=== PATIENT | female | born 1940 | race Caucasian/White ===

== ENCOUNTER → 2019-10-29 17:37 | Outpatient (ROUT) | payer MEDICARE, SELFPAY ==
[2019-10-29 17:52] LABS: Cholesterol 222 mg/dL (140-199); Glucose 77 mg/dL (80-110); HDL Cholesterol 87 mg/dL (40-60); LDL Cholesterol Calculated 121 mg/dL (<100); Triglycerides 72 mg/dL (35-150)
[2019-10-29 18:23] LABS: TSH w/ Reflex to FT4 0.07 uIU/mL (0.47-4.68)
[2019-10-29 18:56] LABS: Free T4, Direct Thyroxine 1.71 ng/dL (0.78-2.19)
== END ==
PROVIDERS: Family Provider Internal Medicine; PCP Internal Medicine; Visit Provider Internal Medicine
DX: E78.2 Mixed hyperlipidemia (principal); E03.9 Hypothyroidism, unspecified
CPT/HCPCS: 80061; 82947; 84439; 84443

== ENCOUNTER → 2020-01-01 19:06 | Outpatient (ROUT) | payer MEDICARE, SELFPAY ==
[2020-01-01 20:03] LABS: TSH w/ Reflex to FT4 0.18 uIU/mL (0.47-4.68)
[2020-01-01 21:30] LABS: Free T4, Direct Thyroxine 1.37 ng/dL (0.78-2.19)
== END ==
PROVIDERS: Family Provider Internal Medicine; PCP Internal Medicine; Visit Provider Internal Medicine
DX: E03.9 Hypothyroidism, unspecified (principal)
CPT/HCPCS: 84439; 84443

== ENCOUNTER → 2020-11-25 14:53 | Outpatient (ROUT) | payer MEDICARE, SELFPAY ==
[2020-11-25 15:43] LABS: BUN Creatinine Ratio 41.1 (6-22); Blood Urea Nitrogen 23 mg/dL (7-17); Calcium 9.4 mg/dL (8.4-10.2); Carbon Dioxide 31 mmol/L (22-32); Chloride 104 mmol/L (98-107); Cholesterol 245 mg/dL (140-199); Estimated Glomerular Filt Rate > 60.0 mL/min (>60); Glucose 154 mg/dL (80-110); HDL Cholesterol 104 mg/dL (40-60); HEMOLYSIS 21 (0-50); LDL Cholesterol Calculated 133 mg/dL (<100); Potassium 4.5 mmol/L (3.4-5.1); Sodium 137 mmol/L (137-145); Triglycerides 38 mg/dL (35-150)
[2020-11-25 16:08] LABS: TSH w/ Reflex to FT4 0.93 uIU/mL (0.47-4.68)
== END ==
PROVIDERS: Family Provider Internal Medicine; PCP Internal Medicine; Visit Provider Internal Medicine
DX: I47.1 Supraventricular tachycardia (principal); E78.2 Mixed hyperlipidemia; E03.9 Hypothyroidism, unspecified
CPT/HCPCS: 80048; 80061; 84443

== ENCOUNTER → 2020-12-10 09:25 | Outpatient (CLI) | payer MEDICARE, SELFPAY ==
[2020-12-10] MEDS: COVID-19 VACC #1, MRNA(MOD) 100 MCG/0.5 ML VIAL IM (09:33)
== END ==
PROVIDERS: Family Provider Internal Medicine; PCP Internal Medicine; Visit Provider Internal Medicine
DX: Z23 Encounter for immunization (principal)
CPT/HCPCS: 0011A; 91301

== ENCOUNTER → 2021-01-07 09:40 | Outpatient (CLI) | payer MEDICARE, SELFPAY ==
[2021-01-07] MEDS: COVID-19 VACC #2, MRNA(MOD) 100 MCG/0.5 ML VIAL IM (09:45)
== END ==
PROVIDERS: Family Provider Internal Medicine; PCP Internal Medicine; Visit Provider Internal Medicine
DX: Z23 Encounter for immunization (principal)
CPT/HCPCS: 0012A; 91301

== ENCOUNTER → 2021-07-16 10:22 | Outpatient (CLI) | payer MEDICARE, SELFPAY ==
[2021-07-16 10:45] LABS: COVID19 -Nasal RAPID Negative (Negative)
== END ==
PROVIDERS: Family Provider Internal Medicine; PCP Internal Medicine; Visit Provider Nurse Practitioner
DX: J02.9 Acute pharyngitis, unspecified (principal); Z20.822 Contact with and (suspected) exposure to COVID-19
CPT/HCPCS: 87070; 87635

== ENCOUNTER → 2022-11-22 16:18 | Outpatient (CLI) | payer MEDICARE, SELFPAY ==
[2022-11-22 18:09] LABS: Hematocrit 44.4 % (36-46); Hemoglobin 15.4 g/dL (12.0-16.0); Mean Corpuscular HGB Conc 34.7 % (30-36); Mean Corpuscular Hemoglobin 32.8 PG (26-34); Mean Corpuscular Volume 94.7 fL (80-100); Platelet Count 204 X10^3/uL (150-400); Red Blood Cell Count 4.69 X10^6/uL (4.0-5.2); Red Cell Distribution Width 13.8 % (11.6-14.8); White Blood Cell Count 5.2 X10^3/uL (4.5-11.0)
[2022-11-22 18:33] LABS: Alanine Aminotransferase 29 IU/L (<35); Albumin 4.4 g/dL (3.5-5.0); Albumin Globulin Ratio 1.3 (1.0-2.8); Alkaline Phosphatase 54 U/L (38-126); Aspartate Aminotransferase 35 IU/L (14-36); BUN Creatinine Ratio 40.4 (6-22); Bilirubin Total 0.5 mg/dL (0.2-1.3); Blood Urea Nitrogen 21 mg/dL (7-17); Calcium 9.1 mg/dL (8.4-10.2); Carbon Dioxide 27 mmol/L (22-32); Chloride 102 mmol/L (98-107); Cholesterol 243 mg/dL (140-199); Estimated Glomerular Filt Rate > 60 mL/min (>60); Globulin 3.5 g/dL (1.7-4.1); Glucose 79 mg/dL (80-110); HDL Cholesterol 92 mg/dL (40-60); HEMOLYSIS < 15 (0-50); LDL Cholesterol Calculated 140 mg/dL (<100); Potassium 4.9 mmol/L (3.4-5.1); Sodium 140 mmol/L (137-145); Total Protein 7.9 g/dL (6.3-8.2); Triglycerides 56 mg/dL (35-150)
[2022-11-22 19:04] LABS: TSH w/ Reflex to FT4 0.02 uIU/mL (0.47-4.68)
[2022-11-22 19:46] LABS: Free T4, Direct Thyroxine 1.86 ng/dL (0.78-2.19)
== END ==
PROVIDERS: Family Provider Internal Medicine; PCP Internal Medicine; Referring Provider Internal Medicine; Visit Provider Internal Medicine
DX: E03.9 Hypothyroidism, unspecified (principal); E78.2 Mixed hyperlipidemia; I47.1 Supraventricular tachycardia
CPT/HCPCS: 36415; 80053; 80061; 84439; 84443; 85027

== ENCOUNTER → 2023-04-26 08:09 | Outpatient (CLI) | payer MEDICARE, SELFPAY ==
[2023-04-26 09:59] LABS: Free T4, Direct Thyroxine 1.61 ng/dL (0.78-2.19)
== END ==
PROVIDERS: Family Provider Internal Medicine; PCP Internal Medicine; Referring Provider Internal Medicine; Visit Provider Internal Medicine
DX: E09.9 Drug or chemical induced diabetes mellitus without complications (principal); E03.9 Hypothyroidism, unspecified
CPT/HCPCS: 36415; 84439; 84443

== ENCOUNTER → 2023-07-17 10:45 | Outpatient (CLI) | payer MEDICARE, SELFPAY ==
--- NOTE | 2023-07-17 10:47 | DI.RAD.S_ITS ---
PROCEDURE: XR HIP W PEL IF DONE LT 2V INDICATIONS: left hip pain TECHNIQUE: AP pelvis with lateral view of the left hip. COMPARISON: None. FINDINGS: Bones: No acute fractures or dislocations. Pelvic ring appears intact. No suspicious bony lesions. Mild degenerative changes are seen in the hips bilaterally. Degenerative changes are seen in the included lumbar spine. Soft tissues: The visualized bowel gas pattern is normal. No suspicious soft tissue calcifications. 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 Degenerative changes are seen in the included lumbar spine. Approved by: Chris Padilla M.D. on 07/17/2023 at 12:05
--- NOTE | 2023-07-17 10:47 | DI.RAD.S_ITS ---
PROCEDURE: XR KNEE RT 3V INDICATIONS: right knee pain TECHNIQUE: 3 views of the knee were acquired. COMPARISON: None. FINDINGS: Bones: No fractures or dislocations. No suspicious bony lesions. Moderate to severe joint space narrowing is seen at the lateral femorotibial compartment subchondral sclerosis and marginal osteophyte formation. Small marginal osteophytes are also seen at the medial and anterior compartments. Soft tissues: No joint effusion. No suspicious soft tissue calcifications. IMPRESSION: Tricompartmental osteoarthrosis, moderate to severe at the lateral femorotibial compartment. Approved by: Chris Padilla M.D. on 07/17/2023 at 12:06
== END ==
PROVIDERS: Family Provider Internal Medicine; PCP Internal Medicine; Referring Provider Internal Medicine; Visit Provider Internal Medicine
DX: M16.0 Bilateral primary osteoarthritis of hip (principal); M47.816 Spondylosis without myelopathy or radiculopathy, lumbar region; M17.11 Unilateral primary osteoarthritis, right knee; M25.552 Pain in left hip; M25.561 Pain in right knee
CPT/HCPCS: 73502; 73562

== ENCOUNTER → 2023-07-18 14:59 | Outpatient (CLI) | payer MEDICARE, SELFPAY ==
--- NOTE | 2023-07-18 15:00 | DI.RAD.S_ITS ---
PROCEDURE: XR SHOULDER LT MIN 2V INDICATIONS: left shoulder pain, no trauma TECHNIQUE: 3 views of the shoulder were acquired. COMPARISON: None. FINDINGS: Bones: No fractures or dislocations. No suspicious bony lesions. Mild acromioclavicular and glenohumeral joint degeneration. Superior migration of humeral head suggesting chronic rotator cuff tendon tear. Visualized ribs appear intact. Soft tissues: No suspicious soft tissue calcifications. IMPRESSION: 1. No acute osseous abnormality. 2. Mild degenerative joint disease. 3. Superior migration of humeral head, which is associated with chronic rotator cuff tendon tear. Consider MRI for further evaluation. Dictated by: Ruma Judd M.D. on 07/18/2023 at 15:38 Approved by: Ruma Judd M.D. on 07/18/2023 at 15:39
== END ==
PROVIDERS: Family Provider Internal Medicine; PCP Internal Medicine; Referring Provider Internal Medicine; Visit Provider Internal Medicine
DX: M19.012 Primary osteoarthritis, left shoulder (principal)
CPT/HCPCS: 73030

== ENCOUNTER 2023-08-31 08:11 | Emergency (ER) | payer MEDICARE, SELFPAY ==
--- NOTE | 2023-08-31 08:18 | DI.RAD.S_ITS ---
PROCEDURE: XR KNEE LT 3V INDICATIONS: left knee pain after fall TECHNIQUE: 3 views of the knee were acquired. COMPARISON: [facility], CR, XR KNEE RT 3V, 07/17/2023, 11:20. FINDINGS: Bones: No fractures or dislocations. No suspicious bony lesions. Soft tissues: Small joint effusion. No suspicious soft tissue calcifications. IMPRESSION: No acute osseous abnormality. If pain persists with conservative management, consider repeat x-ray in 10-14 days or cross-sectional imaging. Dictated by: Asa Gandhi M.D. on 08/31/2023 at 8:42 Approved by: Asa Gandhi M.D. on 08/31/2023 at 8:43
[2023-08-31 08:19] VITALS: BP 134/98; PULSE 88; RESP 17; TEMP 37.1; O2SAT 99; BMI 19.8
--- NOTE | 2023-08-31 08:20 | ED.GENADULT ---
HPI - General Adult General Chief complaint: Extremity Injury, Lower Stated complaint: fell T-1 hurt LT knee Time Seen by Provider: 08/31/23 08:13 History of Present Illness HPI narrative: 83-year-old female nonsmoker without significant chronic medical history presents with a friend and a chief complaint of a left knee injury yesterday. She states that she was in her normal state of health and denies any prodromal symptoms such as dizziness, weakness or lightheadedness. She states that she was walking down some stairs at a local theater when her knee gave out and she fell forward onto it. She now has pain with ambulation but denies any numbness, tingling or weakness. She denies the sense of instability or any significant swelling. She denies other injuries as a consequence of her fall such as head neck or back. She denies any pain in her hip. She complains of pain when she walks and improvement with rest. She is ambulatory with the use of a cane. She took ibuprofen this morning with some relief Related Data Home Medications Medication Instructions Recorded Confirmed levothyroxine 88 mcg tablet 88 mcg PO DAILY 06/11/23 07/18/23 Allergies Allergy/AdvReac Type Severity Reaction Status Date / Time codeine AdvReac Severe Vomiting Verified 08/31/23 08:26 Opioids - Morphine Analogues AdvReac Vomiting Verified 08/31/23 08:26 Review of Systems Review of Systems Narrative: GENERAL: Denies chills, fatigue, malaise, fever, sweats. HEENT: Denies sinus pain, ear pain, sore throat, difficulty swallowing, dizziness. RESPIRATORY: Denies dyspnea, cough, wheezing, hemoptysis, sputum. CARDIOVASCULAR: Denies chest pain, palpitations, orthopnea, edema, GASTROINTESTINAL: Denies nausea, vomiting, abdominal pain, diarrhea, constipation, melena. : Denies dysuria, frequency, incontinence, hematuria, urinary retention. MUSCULOSKELETAL: See HPI SKIN: Denies rash, skin lesions, or other NEUROLOGIC: Denies weakness, headache, numbness, change in speech, confusion, seizures, incoordination. PSYCHIATRIC: No concerning psychosocial issues. 12 point review of systems is negative except for those stated above Patient History Medical History Adhesive capsulitis of left shoulder Tendonitis of left rotator cuff Do not resuscitate Mixed hyperlipidemia Primary osteoarthritis involving multiple joints Menopausal syndrome SVT (supraventricular tachycardia) Acquired hypothyroidism Social History details: (Gerard) 2020, son age 51 prostate cancer Smoking Status: Never smoker Smoking Status: Never smoker Exam Narrative Exam Narrative: GEN: AOx3 and in mild distress EYES: Pupils are equal, round, and reactive to light and accommodation. Extraoccular muscles are intact bilaterally. There is no subconjunctival hemorrhage or exudate. CHEST: Lungs are clear to auscultation bilaterally and free of wheezes, rales, or rhonchi. Heart rate is regular rhythm, there are no murmurs, clicks, rubs, or gallops. There is no chest wall tenderness. ABD: Abdomen is soft and nontender. There is no guarding or rebound. Bowel sounds are normal in all 4 quadrants. There is no mass or organomegaly. EXT: Full painless range of motion of left knee without obvious deformity. No effusion, no ligamentous laxity. Minimal tenderness at the inferior pole of the patella, no joint line tenderness. No pain with axial loading or Melvi's test. No pain in hip or ankle. Closed, isolated and neurovascularly intact SKIN: Warm, pink, and dry. No erythema or rash Initial Vital Signs Initial Vital Signs: Vital Signs Temperature 98.7 F 08/31/23 08:19 Pulse Rate 88 08/31/23 08:19 Respiratory Rate 17 08/31/23 08:19 Blood Pressure 134/98 H 08/31/23 08:19 Pulse Oximetry 99 08/31/23 08:19 Oxygen Delivery Method Room Air 08/31/23 08:19 Course Orders Ordered: ED Orders 08/31/23 08:18 XR knee LT 3V Stat Vital Signs Vital signs: Vital Signs - 8 hr 08/31/23 08:19 Temperature 98.7 F Pulse Rate 88 Respiratory Rate 17 Blood Pressure 134/98 H Pulse Oximetry 99 Oxygen Delivery Method Room Air Medical Decision Making [facility] Narrative Medical decision making narrative: [83] year old patient presents with left knee pain after fall Multiple etiologies for patient's symptoms considered including, but not limited to: [Contusion versus sprain versus fracture versus dislocation versus other] Prior Charts reviewed in our EMR Primary Historian: patient Imaging reviewed: X-ray of the knee shows no sign of fracture or dislocation Patient's history and physical exam are reassuring, no prodromal symptoms contributing to her fall, no neurologic symptoms, very reassuring exam of the knee without obvious deformity, effusion, ligamentous laxity. Imaging without fracture or dislocation, most likely consistent with contusion or sprain. Patient encouraged to take it easy over the next 5-7 days including the use of Tylenol and Motrin, use the cane as needed and follow up with her primary Findings and discharge diagnosis discussed with patient/family followed by verbalization of understanding Return precautions discussed with patient/family whom verbalize understanding of diagnosis and plan Discharge Plan Departure Patient Disposition: Home Clinical Impression: Left knee sprain Instructions: DI for Knee Sprain Activity Restrictions/Additional Instructions: *You have been diagnosed with [left knee pain. As we discussed your history and physical exam is very reassuring and this is most consistent with a sprain or bruise. The x-ray does not show any sign of fracture or dislocation.] *What to do: *Please continue to take your regular medications as directed. [ ] New medication prescriptions sent to your pharmacy: [ ] [ ] New medication written as a paper prescription [ ] No new medications given *Please follow up with your primary care provider in 2-3 days, call for an appointment. Let them know you were seen in the Emergency Department and that we ask that you be seen in follow up. We will electronically transmit a record of today's note if your PCP is in our system *If you do not have a primary care provider please contact the [facility] Resource line at [phone]. They will ask some questions about your medical history and help get you set up with a doctor in the community. *Return to Emergency Department if you should have any new, worsening or concerning symptoms, such as [fever greater than 101 F, shaking chills, worsening pain, persistent vomiting or other bothersome symptoms] Prescriptions: No Action levothyroxine 88 mcg tablet 88 mcg PO DAILY Referrals: Lex Major MD [Primary Care Provider] - Stand Alone Forms: Patient Portal/API
== END 2023-08-31 09:19 | disposition home or self-care (01) ==
PROVIDERS: Emergency Provider Emergency Medicine; Family Provider Internal Medicine; PCP Internal Medicine
DX: S83.92XA Sprain of unspecified site of left knee, initial encounter (principal); W10.9XXA Fall (on) (from) unspecified stairs and steps, initial encounter; Y93.01 Activity, walking, marching and hiking; Y92.254 Theater (live) as the place of occurrence of the external cause
CPT/HCPCS: 73562; 99281; 99283

== ENCOUNTER 2023-10-09 10:30 | Outpatient (RCR) | payer MEDICARE, SELFPAY ==
--- NOTE | 2023-08-08 11:36 | PT.OIE ---
Current Diagnoses Polyosteoarthritis, unspecified (08/08/23) Adhesive capsulitis of left shoulder (08/08/23) Other shoulder lesions, left shoulder (08/08/23) Past Medical History (Last Updated 07/18/23 @ 14:46 by Lex Major MD) Acquired hypothyroidism Adhesive capsulitis of left shoulder Do not resuscitate Menopausal syndrome Mixed hyperlipidemia Primary osteoarthritis involving multiple joints SVT (supraventricular tachycardia) Tendonitis of left rotator cuff Visit Care Team Role Provider Type Lex Major MD Attending Provider Physician Family Provider Primary Care Provider Referring Provider Specialty: Internal Medicine Address: [address] [place] [address] Email: [email or web address] Physical Therapy Initial Evaluation PT-OP-A Visit Information Start: 08/08/23 09:05 Freq: Status: Active Protocol: Document 08/08/23 11:36 AM (Rec: 08/08/23 12:57 AM [id number]) Out-Patient Physical Therapy Visit Information Visit Information Visit Type Initial Evaluation Visit Start Time 11:36 Visit Stop Time 12:21 Total Visit Minutes 45 Visit Number 1 Evaluation Information Evaluation Date 08/08/23 PT-OP-B Current Condition Start: 08/08/23 09:05 Freq: Status: Active Protocol: Document 08/08/23 11:36 AM (Rec: 08/08/23 12:57 AM [id number]) Current Condition History of Current Condition Onset Date Chronic Current Complaints L Shoulder mobility, R knee pain, L SIJ pain History of Current Condition Pt reports recent onset of L shoulder stiffness, R knee pain and L SIJ pain. Pt reports that she has been exercising more in the last year. Pt reports that she noticed the knee pain [place] 6 hours at a time. Pt has hx of R meniscus tear. Pt reports that she has pain at L low back. Pt reports difficulty with bending to garden secondary to low back pain. Pt has been taking celebrex and thinks that might be helping. Pt reports that she is typically very active, though now having difficulty ambulating more than 1 mile. Prior Treatments and Tests none Treatment Goals Patient/Caregiver Goals Pt goal to get back to walking 5 miles a day. Be able to squat and work in her garden. PT-OP-C Subjective Start: 08/08/23 09:05 Freq: Status: Active Protocol: Document 08/08/23 11:36 AM (Rec: 08/08/23 12:57 AM [id number]) OP-PT Pain Assessment Location Left Back Pain Location Details L SIJ, glute Intensity 0 Scale Used Numeric (0 - 10) Description- Other 4 Frequency Daily Pain Aggravating Factors ADL's,Exercise,Sitting,Walking ,Bending,Lifting Pain Alleviating Factors Medication Other Pain Alleviating Factors voltaren, celebrex Right Distal Knee Pain Location Details Infrapatellar Intensity 0 Scale Used Numeric (0 - 10) Description Sharp Description- Other 8 Frequency Daily Pain Aggravating Factors Activity,Exercise,Standing, Walking,Bending Other Pain Aggravating Factors gardening Pain Alleviating Factors Medication Other Pain Alleviating Factors voltaren Left Shoulder Pain Location Details Pt reports stiffness vs pain. Frequency Daily Pain Aggravating Factors Changing Position,ADL's, Activity Pain Alleviating Factors Medication Other Pain Alleviating Factors voltaran, celebrex PT-OP-D Balance Start: 08/08/23 09:05 Freq: Status: Active Protocol: Document 08/08/23 11:36 AM (Rec: 08/08/23 12:57 AM [id number]) Balance Tests Single Limb Standing Single Limb- Right 4 Single Limb- Left 2 PT-OP-E Functional Tests Start: 08/08/23 09:05 Freq: Status: Active Protocol: Document 08/08/23 11:36 AM (Rec: 08/08/23 12:57 AM [id number]) Functional Tests 30 Second Sit to Stand Test Score 10 Comments Pt with pain at lateral knee PT-OP-G Mobility & Gait Start: 08/08/23 09:05 Freq: Status: Active Protocol: Document 08/08/23 11:36 AM (Rec: 08/08/23 12:57 AM [id number]) OP Gait Assessment Gait Gait Assistance Required: Independent Assistive Devices Assistive Device None Gait Deviations General Gait Pattern Antalgic Factors Limiting Gait Function Factors Limiting Gait Function Decreased Strength,Pain PT-OP-J Posture/Palpation/Skin Start: 08/08/23 09:05 Freq: Status: Active Protocol: Document 08/08/23 11:36 AM (Rec: 08/08/23 12:57 AM [id number]) Palpation Assessment Location L hip Palpation Location L hip Palpation Findings Soft Tissue Tightness, Tenderness Palpation Details L glutes, piriformis are tender to palpation Knee Palpation Location R knee Palpation Findings Tenderness Palpation Details Right medial superior anterior knee (adductors and joint line), lateral anterior infrapatellar pain PT-OP-K Range of Motion Start: 08/08/23 09:05 Freq: Status: Active Protocol: Document 08/08/23 11:36 AM (Rec: 08/08/23 12:57 AM [id number]) Shoulder Goniometric Range of Motion Shoulder Left Passive Shoulder ROM WFL No Testing Position Supine Flexion 115 Abduction 109 External Rotation at 45 degrees 50 Abduction Left Shoulder ROM WFL No Testing Position Sitting Flexion 80 Abduction 65 Internal Rotation Behind Back (text) T3 Comments Aply ER: top of head Right Shoulder ROM WFL Yes Testing Position Sitting Flexion 160 Abduction 155 Internal Rotation Behind Back (text) T9 Comments Aply T4 Knee Goniometric Range of Motion Knee Left Flexion Active (degrees) 119 Extension Active (degrees) 0 Right Flexion Active (degrees) 125 Extension Active (degrees) 6 PT-OP-L Special Tests Start: 08/08/23 09:05 Freq: Status: Active Protocol: Document 08/08/23 11:36 AM (Rec: 08/08/23 12:57 AM [id number]) Special Tests Hip Special Tests UMU Test Results + on L PT-OP-M Strength Start: 08/08/23 09:05 Freq: Status: Active Protocol: Document 08/08/23 11:36 AM (Rec: 08/08/23 12:57 AM [id number]) Shoulder Strength Shoulder Manual Muscle Testing Right Flexion 4 Good Abduction (C5) 4 Good External Rotation 4 Good Internal Rotation 4 Good Left Flexion 3- Fair- Abduction (C5) 3- Fair- External Rotation 3- Fair- Internal Rotation 3- Fair- Hip Strength Hip Manual Muscle Testing Right Flexion (L2) 4 Good Abduction 3+ Fair+ Adduction 4 Good External Rotation 3+ Fair+ Internal Rotation 3+ Fair+ Left Flexion (L2) 4 Good Abduction 3+ Fair+ Adduction 4 Good External Rotation 3+ Fair+ Internal Rotation 3+ Fair+ Knee Strength Knee Manual Muscle Testing Right Flexion (S2) 4- Good- Extension (L3) 4- Good- Left Flexion (S2) 4 Good Extension (L3) 4+ Good+ PT-OP-Q Treatments Start: 08/08/23 09:05 Freq: Status: Active Protocol: Document 08/08/23 11:36 AM (Rec: 08/08/23 12:57 AM [id number]) Therapeutic Exercises Supine Exercises Quad set Side right Equipment Used towel roll under knee Reps/Minutes 5x5 sec AAROM shoulder flexion Supine Exercise Name AAROM shoulder flexion with hands clasped Side bilateral Reps/Minutes x5 Bridge Side bilateral Reps/Minutes x5 Sidelying Exercises Clamshell Side bilateral Reps/Minutes x5 PT-OP-T Assessment and Plan Start: 08/08/23 09:05 Freq: Status: Active Protocol: Document 08/08/23 11:36 AM (Rec: 08/08/23 12:57 AM [id number]) Physical Therapy Assessment Rehab Potential Rehabilitation Potential Excellent Impairments Impairments Activity Tolerance,Balance, Functional Activities, Functional Mobility,Gait,Pain, ROM,Soft Tissue Mobility, Strength Goals Balance Impairment Pt able to SLS for 4 seconds on R and 2 seconds on L Short Term Goal (STG) Pt able to SLS for 10 seconds bilaterally. STG Duration 09/05/23 Fdc Goal (LTG) Pt able to SLS for 15 seconds bilaterally to demonstrate reduction in fall risk. LTG Duration 10/03/23 Gardening Impairment Pt unable to squat down to garden. Short Term Goal (STG) Pt able to demonstrate 13 STS squats without production of knee pain. STG Duration 09/05/23 [employer] League [employer] Player Goal (LTG) Pt able to demonstrate proper squat/kneeling without increase in pain to improve tolerance to gardening tasks. LTG Duration 10/03/23 Shoulder strength Impairment Pt with 3-/5 gross shoulder strength at L shoulder. Short Term Goal (STG) Pt with 3+/5 gross shoulder strength at L shoulder STG Duration 09/05/23 [employer] Player Goal (LTG) Pt with 4-/5 gross shoulder strength at L shoulder LTG Duration 10/03/23 Shoulder ROM Impairment Pt with limited L shoulder AROM. Short Term Goal (STG) Pt with 10 deg improvement with shoulder flex, abd and ER . STG Duration 09/05/23 [employer] League [employer] Player Goal (LTG) Pt with 20 deg improvement with AROM shoulder flex, abd and ER. LTG Duration 10/03/23 Walking Impairment Pt unable to walk a mile without increase in knee/hip pain. Short Term Goal (STG) Pt able to walk 2 miles without increase in knee/hip pain. STG Duration 09/05/23 [employer] Player Goal (LTG) Pt able to walk 5 miles without increase in knee/hip pain. LTG Duration 10/03/23 LEFS Impairment Pt with 49/80 LEFS score [employer] Player Goal (LTG) Pt with 56/80 LEFS score LTG Duration 10/03/23 Assessment Summary Assessment Michelle Christian presents to PT to address pain at R knee, L hip/low back and immobility at L shoulder. Pt demonstrates very limited flex/abd/ER AROM, though denies much pain. Pt demonstrates limitations at R knee flexion/extension and bilateral hip rotation. Pt with tenderness at L glutes with palpation and reported discomfort at L piriformis with manual stretching. Pt demonstrates bilateral knee valgus with transfer from sit- stand along with weakness at bilateral glutes. Pt is very motivated to improve strength/ mobility to decrease pain with functional/recreational tasks . Pt will return to PT later this week to continue to progress towards goals. Physical Therapy Plan Frequency and Duration Frequency of Treatment 2x/Week Duration of treatment (weeks) 8 Plan of Care Start Date 08/08/23 Plan of Care End Date 10/03/23 Therapeutic Interventions Therapeutic Interventions Balance Training,Gait Training ,Home Exercise Program,Joint Mobilizations,Manual Therapy, Neuromuscular Re-education, Patient/Caregiver Education, Self-Care/Home Management,Soft Tissue Mobilization,Taping, Therapeutic Activities, Therapeutic Exercises Next Visit Focus/Plan Next Note Type Treatment Note Next Visit Plan Continue to progress L shoulder mobility, R knee strength, L hip/low back mobility/strength
--- NOTE | 2023-08-08 11:36 | PT.OPPOC ---
Physical, Occupational & Speech Therapy At [facility] Current Diagnoses Polyosteoarthritis, unspecified (08/08/23) Adhesive capsulitis of left shoulder (08/08/23) Other shoulder lesions, left shoulder (08/08/23) Visit Care Team Role Provider Type Lex Major MD Attending Provider Physician Family Provider Primary Care Provider Referring Provider Specialty: Internal Medicine Address: [address] [place] [address], [facility] Email: [email or web address] Plan Of Care PT-OP-T Assessment and Plan Start: 08/08/23 09:05 Freq: Status: Active Protocol: Document 08/08/23 11:36 AM (Rec: 08/08/23 12:57 AM [id number]) Physical Therapy Assessment Rehab Potential Rehabilitation Potential Excellent Impairments Impairments Activity Tolerance,Balance, Functional Activities, Functional Mobility,Gait,Pain, ROM,Soft Tissue Mobility, Strength Goals Balance Impairment Pt able to SLS for 4 seconds on R and 2 seconds on L Short Term Goal (STG) Pt able to SLS for 10 seconds bilaterally. STG Duration 09/05/23 Dialysis Equipment Technician Goal (LTG) Pt able to SLS for 15 seconds bilaterally to demonstrate reduction in fall risk. LTG Duration 10/03/23 Gardening Impairment Pt unable to squat down to garden. Short Term Goal (STG) Pt able to demonstrate 13 STS squats without production of knee pain. STG Duration 09/05/23 Dialysis Equipment Technician Goal (LTG) Pt able to demonstrate proper squat/kneeling without increase in pain to improve tolerance to gardening tasks. LTG Duration 10/03/23 Shoulder strength Impairment Pt with 3-/5 gross shoulder strength at L shoulder. Short Term Goal (STG) Pt with 3+/5 gross shoulder strength at L shoulder STG Duration 09/05/23 Skilled Nursing Goal (LTG) Pt with 4-/5 gross shoulder strength at L shoulder LTG Duration 10/03/23 Shoulder ROM Impairment Pt with limited L shoulder AROM. Short Term Goal (STG) Pt with 10 deg improvement with shoulder flex, abd and ER . STG Duration 09/05/23 Dialysis Equipment Technician Goal (LTG) Pt with 20 deg improvement with AROM shoulder flex, abd and ER. LTG Duration 10/03/23 Walking Impairment Pt unable to walk a mile without increase in knee/hip pain. Short Term Goal (STG) Pt able to walk 2 miles without increase in knee/hip pain. STG Duration 09/05/23 Dialysis Equipment Technician Goal (LTG) Pt able to walk 5 miles without increase in knee/hip pain. LTG Duration 10/03/23 LEFS Impairment Pt with 49/80 LEFS score Dialysis Equipment Technician Goal (LTG) Pt with 56/80 LEFS score LTG Duration 10/03/23 Assessment Summary Assessment Michelle Christian presents to PT to address pain at R knee, L hip/low back and immobility at L shoulder. Pt demonstrates very limited flex/abd/ER AROM, though denies much pain. Pt demonstrates limitations at R knee flexion/extension and bilateral hip rotation. Pt with tenderness at L glutes with palpation and reported discomfort at L piriformis with manual stretching. Pt demonstrates bilateral knee valgus with transfer from sit- stand along with weakness at bilateral glutes. Pt is very motivated to improve strength/ mobility to decrease pain with functional/recreational tasks . Pt will return to PT later this week to continue to progress towards goals. Physical Therapy Plan Frequency and Duration Frequency of Treatment 2x/Week Duration of treatment (weeks) 8 Plan of Care Start Date 08/08/23 Plan of Care End Date 10/03/23 Therapeutic Interventions Therapeutic Interventions Balance Training,Gait Training ,Home Exercise Program,Joint Mobilizations,Manual Therapy, Neuromuscular Re-education, Patient/Caregiver Education, Self-Care/Home Management,Soft Tissue Mobilization,Taping, Therapeutic Activities, Therapeutic Exercises Next Visit Focus/Plan Next Note Type Treatment Note Next Visit Plan Continue to progress L shoulder mobility, R knee strength, L hip/low back mobility/strength Plan of Care Dates Plan of Care Start Date 08/08/23 Plan of Care End Date 10/03/23 Electronically Signed by: Kacey Del Valle, PT 08/08/23 5044 If you are in agreement with this Plan of Care, please return a signed and dated copy. I have reviewed this Plan of Care and certify that the skilled therapy services above are required to meet the patient?s needs. Physician Signature Date Printed Name and Credentials Clinical Instructor Signature Printed Name and Credentials
--- NOTE | 2023-08-10 12:24 | PT.OTN ---
Current Diagnoses Polyosteoarthritis, unspecified (08/10/23) Adhesive capsulitis of left shoulder (08/10/23) Other shoulder lesions, left shoulder (08/10/23) Physical Therapy Treatment Note PT-OP-A Visit Information Start: 08/08/23 09:05 Freq: Status: Active Protocol: Document 08/10/23 12:24 AM (Rec: 08/10/23 13:32 AM [id number]) Out-Patient Physical Therapy Visit Information Visit Information Visit Type Treatment Note Visit Start Time 12:24 Visit Stop Time 13:09 Total Visit Minutes 45 Visit Number 2 PT-OP-B Current Condition Start: 08/08/23 09:05 Freq: Status: Active Protocol: Document 08/08/23 11:36 AM (Rec: 08/08/23 12:57 AM [id number]) Current Condition History of Current Condition Onset Date Chronic Current Complaints L Shoulder mobility, R knee pain, L SIJ pain History of Current Condition Pt reports recent onset of L shoulder stiffness, R knee pain and L SIJ pain. Pt reports that she has been exercising more in the last year. Pt reports that she noticed the knee pain [place] 6 hours at a time. Pt has hx of R meniscus tear. Pt reports that she has pain at L low back. Pt reports difficulty with bending to garden secondary to low back pain. Pt has been taking celebrex and thinks that might be helping. Pt reports that she is typically very active, though now having difficulty ambulating more than 1 mile. Prior Treatments and Tests none Treatment Goals Patient/Caregiver Goals Pt goal to get back to walking 5 miles a day. Be able to squat and work in her garden. PT-OP-C Subjective Start: 08/08/23 09:05 Freq: Status: Active Protocol: Document 08/10/23 12:24 AM (Rec: 08/10/23 13:32 AM [id number]) OP-PT Subjective Patient Comments Patient Comments Pt reports discomfort at knee and hip today. Pt reports some discomfort at her butt with bridges and clamshells Pt reports pain with use of L UE. PT-OP-D Balance Start: 08/08/23 09:05 Freq: Status: Active Protocol: Document 08/08/23 11:36 AM (Rec: 08/08/23 12:57 AM [id number]) Balance Tests Single Limb Standing Single Limb- Right 4 Single Limb- Left 2 PT-OP-E Functional Tests Start: 08/08/23 09:05 Freq: Status: Active Protocol: Document 08/08/23 11:36 AM (Rec: 08/08/23 12:57 AM [id number]) Functional Tests 30 Second Sit to Stand Test Score 10 Comments Pt with pain at lateral knee PT-OP-G Mobility & Gait Start: 08/08/23 09:05 Freq: Status: Active Protocol: Document 08/08/23 11:36 AM (Rec: 08/08/23 12:57 AM [id number]) OP Gait Assessment Gait Gait Assistance Required: Independent Assistive Devices Assistive Device None Gait Deviations General Gait Pattern Antalgic Factors Limiting Gait Function Factors Limiting Gait Function Decreased Strength,Pain PT-OP-J Posture/Palpation/Skin Start: 08/08/23 09:05 Freq: Status: Active Protocol: Document 08/08/23 11:36 AM (Rec: 08/08/23 12:57 AM [id number]) Palpation Assessment Location L hip Palpation Location L hip Palpation Findings Soft Tissue Tightness, Tenderness Palpation Details L glutes, piriformis are tender to palpation Knee Palpation Location R knee Palpation Findings Tenderness Palpation Details Right medial superior anterior knee (adductors and joint line), lateral anterior infrapatellar pain PT-OP-K Range of Motion Start: 08/08/23 09:05 Freq: Status: Active Protocol: Document 08/08/23 11:36 AM (Rec: 08/08/23 12:57 AM [id number]) Shoulder Goniometric Range of Motion Shoulder Left Passive Shoulder ROM WFL No Testing Position Supine Flexion 115 Abduction 109 External Rotation at 45 degrees 50 Abduction Left Shoulder ROM WFL No Testing Position Sitting Flexion 80 Abduction 65 Internal Rotation Behind Back (text) T3 Comments Aply ER: top of head Right Shoulder ROM WFL Yes Testing Position Sitting Flexion 160 Abduction 155 Internal Rotation Behind Back (text) T9 Comments Aply T4 Knee Goniometric Range of Motion Knee Left Flexion Active (degrees) 119 Extension Active (degrees) 0 Right Flexion Active (degrees) 125 Extension Active (degrees) 6 PT-OP-L Special Tests Start: 08/08/23 09:05 Freq: Status: Active Protocol: Document 08/08/23 11:36 AM (Rec: 08/08/23 12:57 AM [id number]) Special Tests Hip Special Tests UMU Test Results + on L PT-OP-M Strength Start: 08/08/23 09:05 Freq: Status: Active Protocol: Document 08/08/23 11:36 AM (Rec: 08/08/23 12:57 AM [id number]) Shoulder Strength Shoulder Manual Muscle Testing Right Flexion 4 Good Abduction (C5) 4 Good External Rotation 4 Good Internal Rotation 4 Good Left Flexion 3- Fair- Abduction (C5) 3- Fair- External Rotation 3- Fair- Internal Rotation 3- Fair- Hip Strength Hip Manual Muscle Testing Right Flexion (L2) 4 Good Abduction 3+ Fair+ Adduction 4 Good External Rotation 3+ Fair+ Internal Rotation 3+ Fair+ Left Flexion (L2) 4 Good Abduction 3+ Fair+ Adduction 4 Good External Rotation 3+ Fair+ Internal Rotation 3+ Fair+ Knee Strength Knee Manual Muscle Testing Right Flexion (S2) 4- Good- Extension (L3) 4- Good- Left Flexion (S2) 4 Good Extension (L3) 4+ Good+ PT-OP-Q Treatments Start: 08/08/23 09:05 Freq: Status: Active Protocol: Document 08/10/23 12:24 AM (Rec: 08/10/23 13:32 AM [id number]) Cardio Equipment Recumbent Stepper (Sci-Fit) Duration (Minutes) 2 Resistance 1 Other Painful at R knee, unable to continue Therapeutic Exercises Supine Exercises Bridge Side bilateral Reps/Minutes 10 Sidelying Exercises Clamshell Side bilateral Reps/Minutes x10 Sitting Exercises Shoulder kevin Sitting Exercise Name Seated kevin Reps/Minutes x10 Standing Exercises Calf raise Standing Exercise Name Standing calf stretch Side bilateral Reps/Minutes 2x30 sec Hip abduction Standing Exercise Name Standing hip abduction Side bilateral Reps/Minutes x10 Side step Standing Exercise Name Side step Side bilateral Resistance [place] TB Equipment Used in // bars Reps/Minutes 2x length of // bars ea direction Manual Therapy Treatment Soft Tissue Mobilization R Knee Body Location Quads, hamstring, glutes, ITB Mobilization Type Myofascial Release Intensity/Depth Moderate Body Position Sidelying Comments L sidelying Manual Techniques L shoulder PROM Type L shoulder PROM Body Position Supine Hip flexor stretch Type Erasmo position Body Position Supine Reps/Duration 2x30 sec Comments R only PT-OP-T Assessment and Plan Start: 08/08/23 09:05 Freq: Status: Active Protocol: Document 08/10/23 12:24 AM (Rec: 08/10/23 13:32 AM [id number]) Physical Therapy Assessment Impairments Impairments Activity Tolerance,Balance, Functional Activities, Functional Mobility,Gait,Pain, ROM,Soft Tissue Mobility, Strength Goals Balance Impairment Pt able to SLS for 4 seconds on R and 2 seconds on L Short Term Goal (STG) Pt able to SLS for 10 seconds bilaterally. STG Duration 09/05/23 Ehs Teacher Goal (LTG) Pt able to SLS for 15 seconds bilaterally to demonstrate reduction in fall risk. LTG Duration 10/03/23 Gardening Impairment Pt unable to squat down to garden. Short Term Goal (STG) Pt able to demonstrate 13 STS squats without production of knee pain. STG Duration 09/05/23 Alf Goal (LTG) Pt able to demonstrate proper squat/kneeling without increase in pain to improve tolerance to gardening tasks. LTG Duration 10/03/23 Shoulder strength Impairment Pt with 3-/5 gross shoulder strength at L shoulder. Short Term Goal (STG) Pt with 3+/5 gross shoulder strength at L shoulder STG Duration 09/05/23 Ehs Teacher Goal (LTG) Pt with 4-/5 gross shoulder strength at L shoulder LTG Duration 10/03/23 Shoulder ROM Impairment Pt with limited L shoulder AROM. Short Term Goal (STG) Pt with 10 deg improvement with shoulder flex, abd and ER . STG Duration 09/05/23 Alf Goal (LTG) Pt with 20 deg improvement with AROM shoulder flex, abd and ER. LTG Duration 10/03/23 Walking Impairment Pt unable to walk a mile without increase in knee/hip pain. Short Term Goal (STG) Pt able to walk 2 miles without increase in knee/hip pain. STG Duration 09/05/23 Alf Goal (LTG) Pt able to walk 5 miles without increase in knee/hip pain. LTG Duration 10/03/23 LEFS Impairment Pt with 49/80 LEFS score Alf Goal (LTG) Pt with 56/80 LEFS score LTG Duration 10/03/23 Assessment Summary Assessment Pt demonstrated R knee discomfort with both stepper and recumbent bike today. Pt continues to be infrapatellar and lateral. Pt with tenderness along ITB with STM and stiffness at hip flexors. Pt demonstrates R femoral MR and pronation at foot with gait and with transfer [facility] activities. Pt demonstrates limited L shoulder PROM, secondary to pain and crepitus . Pt will return to PT next week. Will continue to progress L UE and [place] LE strength as tolerated to improve tolerance to functional tasks. Physical Therapy Plan Frequency and Duration Frequency of Treatment 2x/Week Duration of treatment (weeks) 8 Plan of Care Start Date 08/08/23 Plan of Care End Date 10/03/23 Therapeutic Interventions Therapeutic Interventions Balance Training,Gait Training ,Home Exercise Program,Joint Mobilizations,Manual Therapy, Neuromuscular Re-education, Patient/Caregiver Education, Self-Care/Home Management,Soft Tissue Mobilization,Taping, Therapeutic Activities, Therapeutic Exercises Next Visit Focus/Plan Next Note Type Treatment Note Next Visit Plan Continue to progress L shoulder mobility, R knee strength, L hip/low back mobility/strength
--- NOTE | 2023-08-15 11:37 | PT.OTN ---
Current Diagnoses Polyosteoarthritis, unspecified (08/15/23) Adhesive capsulitis of left shoulder (08/15/23) Other shoulder lesions, left shoulder (08/15/23) Physical Therapy Treatment Note PT-OP-A Visit Information Start: 08/08/23 09:05 Freq: Status: Active Protocol: Document 08/15/23 11:37 AM (Rec: 08/15/23 12:49 AM [id number]) Out-Patient Physical Therapy Visit Information Visit Information Visit Type Treatment Note Visit Start Time 11:37 Visit Stop Time 12:22 Total Visit Minutes 45 Visit Number 3 PT-OP-B Current Condition Start: 08/08/23 09:05 Freq: Status: Active Protocol: Document 08/15/23 11:37 AM (Rec: 08/15/23 12:49 AM [id number]) Current Condition History of Current Condition Onset Date Chronic Current Complaints L Shoulder mobility, R knee pain, L SIJ pain History of Current Condition Pt reports recent onset of L shoulder stiffness, R knee pain and L SIJ pain. Pt reports that she has been exercising more in the last year. Pt reports that she noticed the knee pain after standing at the art festival for 6 hours at a time. Pt has hx of R meniscus tear. Pt reports that she has pain at L low back. Pt reports difficulty with bending to garden secondary to low back pain. Pt has been taking celebrex and thinks that might be helping. Pt reports that she is typically very active, though now having difficulty ambulating more than 1 mile. Prior Treatments and Tests none PT-OP-C Subjective Start: 08/08/23 09:05 Freq: Status: Active Protocol: Document 08/15/23 11:37 AM (Rec: 08/15/23 12:49 AM [id number]) OP-PT Subjective Patient Comments Patient Comments Pt reports that she feels that her legs do not feel strong with walking about her house. Pt reports good compliance with exercise. PT-OP-D Balance Start: 08/08/23 09:05 Freq: Status: Active Protocol: Document 08/08/23 11:36 AM (Rec: 08/08/23 12:57 AM [id number]) Balance Tests Single Limb Standing Single Limb- Right 4 Single Limb- Left 2 PT-OP-E Functional Tests Start: 08/08/23 09:05 Freq: Status: Active Protocol: Document 08/08/23 11:36 AM (Rec: 08/08/23 12:57 AM [id number]) Functional Tests 30 Second Sit to Stand Test Score 10 Comments Pt with pain at lateral knee PT-OP-G Mobility & Gait Start: 08/08/23 09:05 Freq: Status: Active Protocol: Document 08/08/23 11:36 AM (Rec: 08/08/23 12:57 AM [id number]) OP Gait Assessment Gait Gait Assistance Required: Independent Assistive Devices Assistive Device None Gait Deviations General Gait Pattern Antalgic Factors Limiting Gait Function Factors Limiting Gait Function Decreased Strength,Pain PT-OP-J Posture/Palpation/Skin Start: 08/08/23 09:05 Freq: Status: Active Protocol: Document 08/08/23 11:36 AM (Rec: 08/08/23 12:57 AM [id number]) Palpation Assessment Location L hip Palpation Location L hip Palpation Findings Soft Tissue Tightness, Tenderness Palpation Details L glutes, piriformis are tender to palpation Knee Palpation Location R knee Palpation Findings Tenderness Palpation Details Right medial superior anterior knee (adductors and joint line), lateral anterior infrapatellar pain PT-OP-K Range of Motion Start: 08/08/23 09:05 Freq: Status: Active Protocol: Document 08/08/23 11:36 AM (Rec: 08/08/23 12:57 AM [id number]) Shoulder Goniometric Range of Motion Shoulder Left Passive Shoulder ROM WFL No Testing Position Supine Flexion 115 Abduction 109 External Rotation at 45 degrees 50 Abduction Left Shoulder ROM WFL No Testing Position Sitting Flexion 80 Abduction 65 Internal Rotation Behind Back (text) T3 Comments Aply ER: top of head Right Shoulder ROM WFL Yes Testing Position Sitting Flexion 160 Abduction 155 Internal Rotation Behind Back (text) T9 Comments Aply T4 Knee Goniometric Range of Motion Knee Left Flexion Active (degrees) 119 Extension Active (degrees) 0 Right Flexion Active (degrees) 125 Extension Active (degrees) 6 PT-OP-L Special Tests Start: 08/08/23 09:05 Freq: Status: Active Protocol: Document 08/08/23 11:36 AM (Rec: 08/08/23 12:57 AM [id number]) Special Tests Hip Special Tests UMU Test Results + on L PT-OP-M Strength Start: 08/08/23 09:05 Freq: Status: Active Protocol: Document 08/08/23 11:36 AM (Rec: 08/08/23 12:57 AM [id number]) Shoulder Strength Shoulder Manual Muscle Testing Right Flexion 4 Good Abduction (C5) 4 Good External Rotation 4 Good Internal Rotation 4 Good Left Flexion 3- Fair- Abduction (C5) 3- Fair- External Rotation 3- Fair- Internal Rotation 3- Fair- Hip Strength Hip Manual Muscle Testing Right Flexion (L2) 4 Good Abduction 3+ Fair+ Adduction 4 Good External Rotation 3+ Fair+ Internal Rotation 3+ Fair+ Left Flexion (L2) 4 Good Abduction 3+ Fair+ Adduction 4 Good External Rotation 3+ Fair+ Internal Rotation 3+ Fair+ Knee Strength Knee Manual Muscle Testing Right Flexion (S2) 4- Good- Extension (L3) 4- Good- Left Flexion (S2) 4 Good Extension (L3) 4+ Good+ PT-OP-Q Treatments Start: 08/08/23 09:05 Freq: Status: Active Protocol: Document 08/15/23 11:37 AM (Rec: 08/15/23 12:49 AM [id number]) Therapeutic Exercises Supine Exercises Bent knee fall out Supine Exercise Name BKFO Side bilateral Reps/Minutes x5 SLR Supine Exercise Name SLR Reps/Minutes x10 Comments with cues for lower abdominal activation SAQ Supine Exercise Name SAQ Reps/Minutes x10 Standing Exercises Calf raise Standing Exercise Name Standing calf stretch Side bilateral Reps/Minutes 2x30 sec Manual Therapy Treatment Soft Tissue Mobilization L glutes Body Location L glutes Mobilization Type Myofascial Release,Trigger Point Release Intensity/Depth Moderate Body Position Sidelying Comments R sidelying R Knee Body Location Quads, hamstring, glutes, ITB Mobilization Type Myofascial Release Intensity/Depth Moderate Body Position Sidelying Comments L sidelying, also used rolling pin on L lateral thigh Joint Mobilizations Patellar mob Joint R patellar mob Direction med, sup, inf Grade III Body Position Supine Taping KT Body Location R knee Type of Tape Kinesio Tape Comments 1- band in C shape at R knee to encourage medial glide Pt instructed to remove tape if painful or itching. Pt instructed to remove tape in 24 hours if tolerated ok. Will assess response and tape next time if appropriate. Manual Techniques L figure 4 stretch Body Position Hooklying Reps/Duration 2x30 sec Comments L only Hip flexor stretch Type Erasmo position Body Position Supine Reps/Duration 2x30 sec Comments R only PT-OP-T Assessment and Plan Start: 08/08/23 09:05 Freq: Status: Active Protocol: Document 08/15/23 11:37 AM (Rec: 08/15/23 12:49 AM [id number]) Physical Therapy Assessment Impairments Impairments Activity Tolerance,Balance, Functional Activities, Functional Mobility,Gait,Pain, ROM,Soft Tissue Mobility, Strength Goals Balance Impairment Pt able to SLS for 4 seconds on R and 2 seconds on L Short Term Goal (STG) Pt able to SLS for 10 seconds bilaterally. STG Duration 09/05/23 Residential Goal (LTG) Pt able to SLS for 15 seconds bilaterally to demonstrate reduction in fall risk. LTG Duration 10/03/23 Gardening Impairment Pt unable to squat down to garden. Short Term Goal (STG) Pt able to demonstrate 13 STS squats without production of knee pain. STG Duration 09/05/23 Residential Goal (LTG) Pt able to demonstrate proper squat/kneeling without increase in pain to improve tolerance to gardening tasks. LTG Duration 10/03/23 Shoulder strength Impairment Pt with 3-/5 gross shoulder strength at L shoulder. Short Term Goal (STG) Pt with 3+/5 gross shoulder strength at L shoulder STG Duration 09/05/23 Cut Off Saw Grader Goal (LTG) Pt with 4-/5 gross shoulder strength at L shoulder LTG Duration 10/03/23 Shoulder ROM Impairment Pt with limited L shoulder AROM. Short Term Goal (STG) Pt with 10 deg improvement with shoulder flex, abd and ER . STG Duration 09/05/23 Residential Goal (LTG) Pt with 20 deg improvement with AROM shoulder flex, abd and ER. LTG Duration 10/03/23 Walking Impairment Pt unable to walk a mile without increase in knee/hip pain. Short Term Goal (STG) Pt able to walk 2 miles without increase in knee/hip pain. STG Duration 09/05/23 Cut Off Saw Grader Goal (LTG) Pt able to walk 5 miles without increase in knee/hip pain. LTG Duration 10/03/23 LEFS Impairment Pt with 49/80 LEFS score Cut Off Saw Grader Goal (LTG) Pt with 56/80 LEFS score LTG Duration 10/03/23 Assessment Summary Assessment Pt tolerated PRE well today. Pt demonstrates lateral tracking of R patella, likely contributing to pain. Pt demonstrates continued tenderness along R ITB/lat quads with STM. Pt demonstrated production of L low back/SIJ pain with R SLR, which improved with cues for abdominal control. Pt challenged with trunk control with BKFO and reported fatigue with this exercise. Pt demonstrates femoral MR, knee valgus and R foot pronation with ascending/descending stairs. Pt would benefit from continued PT to progress LE strengtgh and L UE strength and mobility to improve tolerance to functional tasks. Physical Therapy Plan Frequency and Duration Frequency of Treatment 2x/Week Duration of treatment (weeks) 8 Plan of Care Start Date 08/08/23 Plan of Care End Date 10/03/23 Therapeutic Interventions Therapeutic Interventions Balance Training,Gait Training ,Home Exercise Program,Joint Mobilizations,Manual Therapy, Neuromuscular Re-education, Patient/Caregiver Education, Self-Care/Home Management,Soft Tissue Mobilization,Taping, Therapeutic Activities, Therapeutic Exercises Next Visit Focus/Plan Next Note Type Treatment Note Next Visit Plan Increased focus on L shoulder next session. Assess reponse to KT and repeat if helpful.
--- NOTE | 2023-08-21 11:08 | PT.OTN ---
Current Diagnoses Polyosteoarthritis, unspecified (08/21/23) Adhesive capsulitis of left shoulder (08/21/23) Other shoulder lesions, left shoulder (08/21/23) Physical Therapy Treatment Note PT-OP-A Visit Information Start: 08/08/23 09:05 Freq: Status: Active Protocol: Document 08/21/23 10:46 NBM (Rec: 08/21/23 11:08 NBM [id number]) Out-Patient Physical Therapy Visit Information Visit Information Visit Type Treatment Note Visit Start Time 09:46 Visit Stop Time 10:36 Total Visit Minutes 50 Visit Number 4 Number of CLINICAL PHARMACY MANAGER Visits 1 Evaluation Information Evaluation Date 08/08/23 PT-OP-B Current Condition Start: 08/08/23 09:05 Freq: Status: Active Protocol: Document 08/15/23 11:37 AM (Rec: 08/15/23 12:49 AM [id number]) Current Condition History of Current Condition Onset Date Chronic Current Complaints L Shoulder mobility, R knee pain, L SIJ pain History of Current Condition Pt reports recent onset of L shoulder stiffness, R knee pain and L SIJ pain. Pt reports that she has been exercising more in the last year. Pt reports that she noticed the knee pain after standing [place] the art [place] 6 hours at a time. Pt has hx of R meniscus tear. Pt reports that she has pain at L low back. Pt reports difficulty with bending to garden secondary to low back pain. Pt has been taking celebrex and thinks that might be helping. Pt reports that she is typically very active, though now having difficulty ambulating more than 1 mile. Prior Treatments and Tests none PT-OP-C Subjective Start: 08/08/23 09:05 Freq: Status: Active Protocol: Document 08/21/23 10:46 NBM (Rec: 08/21/23 11:08 NB [id number]) OP-PT Subjective Patient Comments Patient Comments Pt reports she does ex morning and night. Her knee pain is the worst, then L hip/low back , and L arm is stiff. Everything is getting incrementally better since starting Physical Therapy but my patience is not getting incrementally better. She hasn't been walking in 7 or 8 days because of the knee pain. She thinks the KT tape helped the R knee because she noticed the difference when she removed it. PT-OP-D Balance Start: 08/08/23 09:05 Freq: Status: Active Protocol: Document 08/08/23 11:36 AM (Rec: 08/08/23 12:57 AM [id number]) Balance Tests Single Limb Standing Single Limb- Right 4 Single Limb- Left 2 PT-OP-E Functional Tests Start: 08/08/23 09:05 Freq: Status: Active Protocol: Document 08/08/23 11:36 AM (Rec: 08/08/23 12:57 AM [id number]) Functional Tests 30 Second Sit to Stand Test Score 10 Comments Pt with pain at lateral knee PT-OP-G Mobility & Gait Start: 08/08/23 09:05 Freq: Status: Active Protocol: Document 08/08/23 11:36 AM (Rec: 08/08/23 12:57 AM [id number]) OP Gait Assessment Gait Gait Assistance Required: Independent Assistive Devices Assistive Device None Gait Deviations General Gait Pattern Antalgic Factors Limiting Gait Function Factors Limiting Gait Function Decreased Strength,Pain PT-OP-J Posture/Palpation/Skin Start: 08/08/23 09:05 Freq: Status: Active Protocol: Document 08/08/23 11:36 AM (Rec: 08/08/23 12:57 AM [id number]) Palpation Assessment Location L hip Palpation Location L hip Palpation Findings Soft Tissue Tightness, Tenderness Palpation Details L glutes, piriformis are tender to palpation Knee Palpation Location R knee Palpation Findings Tenderness Palpation Details Right medial superior anterior knee (adductors and joint line), lateral anterior infrapatellar pain PT-OP-K Range of Motion Start: 08/08/23 09:05 Freq: Status: Active Protocol: Document 08/08/23 11:36 AM (Rec: 08/08/23 12:57 AM [id number]) Shoulder Goniometric Range of Motion Shoulder Left Passive Shoulder ROM WFL No Testing Position Supine Flexion 115 Abduction 109 External Rotation at 45 degrees 50 Abduction Left Shoulder ROM WFL No Testing Position Sitting Flexion 80 Abduction 65 Internal Rotation Behind Back (text) T3 Comments Aply ER: top of head Right Shoulder ROM WFL Yes Testing Position Sitting Flexion 160 Abduction 155 Internal Rotation Behind Back (text) T9 Comments Aply T4 Knee Goniometric Range of Motion Knee Left Flexion Active (degrees) 119 Extension Active (degrees) 0 Right Flexion Active (degrees) 125 Extension Active (degrees) 6 PT-OP-L Special Tests Start: 08/08/23 09:05 Freq: Status: Active Protocol: Document 08/08/23 11:36 AM (Rec: 08/08/23 12:57 AM [id number]) Special Tests Hip Special Tests UMU Test Results + on L PT-OP-M Strength Start: 08/08/23 09:05 Freq: Status: Active Protocol: Document 08/08/23 11:36 AM (Rec: 08/08/23 12:57 AM [id number]) Shoulder Strength Shoulder Manual Muscle Testing Right Flexion 4 Good Abduction (C5) 4 Good External Rotation 4 Good Internal Rotation 4 Good Left Flexion 3- Fair- Abduction (C5) 3- Fair- External Rotation 3- Fair- Internal Rotation 3- Fair- Hip Strength Hip Manual Muscle Testing Right Flexion (L2) 4 Good Abduction 3+ Fair+ Adduction 4 Good External Rotation 3+ Fair+ Internal Rotation 3+ Fair+ Left Flexion (L2) 4 Good Abduction 3+ Fair+ Adduction 4 Good External Rotation 3+ Fair+ Internal Rotation 3+ Fair+ Knee Strength Knee Manual Muscle Testing Right Flexion (S2) 4- Good- Extension (L3) 4- Good- Left Flexion (S2) 4 Good Extension (L3) 4+ Good+ PT-OP-Q Treatments Start: 08/08/23 09:05 Freq: Status: Active Protocol: Document 08/21/23 10:46 NBM (Rec: 08/21/23 11:08 NB [id number]) Therapeutic Exercises Supine Exercises Bent knee fall out Supine Exercise Name BKFO Side bilateral Reps/Minutes x5 ea Sitting Exercises Shoulder kevin Sitting Exercise Name Seated kevin: pablo flex/scap, abd Side left Equipment Used mirror Reps/Minutes x10 ea Comments visual and tactile cues for UT overactivation Manual Therapy Treatment Soft Tissue Mobilization R Knee Body Location adductors Mobilization Type Rolling,Strumming,Sustained Pressure Intensity/Depth Moderate Body Position Sidelying Comments to address R muscle twitching after hip flexor stretch in Erasmo position Joint Mobilizations Patellar mob Joint R patellar mob Direction med, sup, inf Grade II Body Position Supine Taping KT Body Location R knee Type of Tape Kinesio Tape Comments 1- band in C shape at R knee to encourage medial glide Pt instructed to remove tape if painful or itching. Pt instructed to remove tape in 24 hours if tolerated ok. Will assess response and tape next time if appropriate. Manual Techniques L figure 4 stretch Body Position Hooklying Reps/Duration 2x30 sec Comments L only L shoulder PROM Type L shoulder PROM Body Position Supine Hip flexor stretch Type Erasmo position Body Location B hip flexors Body Position Supine Reps/Duration x45 sec ea Self-Care/Home Management Treatment Education Patient Education Home Exercise Program,Posture Other Education Pt is educated on diaphgramatic breathing to reduce muscle guarding. Discussion w/ pt re: goal of improving range of motion and strength in LUE and strengthening in LEs and how HEP helps with personal goals (ie. gardening, walking). PT-OP-T Assessment and Plan Start: 08/08/23 09:05 Freq: Status: Active Protocol: Document 08/21/23 10:46 NB (Rec: 08/21/23 11:08 [facility] [id number]) Physical Therapy Assessment Goals Balance Impairment Pt able to SLS for 4 seconds on R and 2 seconds on L Short Term Goal (STG) Pt able to SLS for 10 seconds bilaterally. STG Duration 09/05/23 Staff Psychiatrist Goal (LTG) Pt able to SLS for 15 seconds bilaterally to demonstrate reduction in fall risk. LTG Duration 10/03/23 Gardening Impairment Pt unable to squat down to garden. Short Term Goal (STG) Pt able to demonstrate 13 STS squats without production of knee pain. STG Duration 09/05/23 Staff Psychiatrist Goal (LTG) Pt able to demonstrate proper squat/kneeling without increase in pain to improve tolerance to gardening tasks. LTG Duration 10/03/23 Shoulder strength Impairment Pt with 3-/5 gross shoulder strength at L shoulder. Short Term Goal (STG) Pt with 3+/5 gross shoulder strength at L shoulder STG Duration 09/05/23 [facility] Goal (LTG) Pt with 4-/5 gross shoulder strength at L shoulder LTG Duration 10/03/23 Shoulder ROM Impairment Pt with limited L shoulder AROM. Short Term Goal (STG) Pt with 10 deg improvement with shoulder flex, abd and ER . STG Duration 09/05/23 Staff Psychiatrist Goal (LTG) Pt with 20 deg improvement with AROM shoulder flex, abd and ER. LTG Duration 10/03/23 Walking Impairment Pt unable to walk a mile without increase in knee/hip pain. Short Term Goal (STG) Pt able to walk 2 miles without increase in knee/hip pain. STG Duration 09/05/23 Staff Psychiatrist Goal (LTG) Pt able to walk 5 miles without increase in knee/hip pain. LTG Duration 10/03/23 LEFS Impairment Pt with 49/80 LEFS score Staff Psychiatrist Goal (LTG) Pt with 56/80 LEFS score LTG Duration 10/03/23 Assessment Summary Assessment Treatment focus on manual therapy to L shoulder and education re: HEP. Michelle requires consistent cues for UT overactivation, which improves using pulleys and mirror for visual feedback. Pt is educated on diaphgramatic breathing to reduce muscle guarding. Significant time spent with PROM to LUE and soft tissue mobilization; palpable tension to L scapular elevators improves w/ manual. Of note is pt's R adductor mm visibly twitching pain-free after hip flexor stretch in Erasmo position which improves with brief STM. Discussion w/ pt re: goal of improving range of motion and strength in LUE and strengthening in LEs and how HEP helps with personal goals (ie. gardening, walking) w/ pt expressing understanding. KT tape reapplied to R knee to improve patellar tracking. Physical Therapy Plan Frequency and Duration Frequency of Treatment 2x/Week Duration of treatment (weeks) 8 Plan of Care Start Date 08/08/23 Plan of Care End Date 10/03/23 Therapeutic Interventions Therapeutic Interventions Balance Training,Gait Training ,Home Exercise Program,Joint Mobilizations,Manual Therapy, Neuromuscular Re-education, Patient/Caregiver Education, Self-Care/Home Management,Soft Tissue Mobilization,Taping, Therapeutic Activities, Therapeutic Exercises Next Visit Focus/Plan Next Note Type Treatment Note Next Visit Plan Assess response to last visit and KT tape. Issue diaphragmatic breathing. Continue L shoulder focus and LE HEP review.
--- NOTE | 2023-08-28 13:36 | PT.OTN ---
Current Diagnoses Polyosteoarthritis, unspecified (08/28/23) Adhesive capsulitis of left shoulder (08/28/23) Other shoulder lesions, left shoulder (08/28/23) Physical Therapy Treatment Note PT-OP-A Visit Information Start: 08/08/23 09:05 Freq: Status: Active Protocol: Document 08/28/23 10:25 NBM (Rec: 08/28/23 12:32 NBM [id number]) Out-Patient Physical Therapy Visit Information Visit Information Visit Type Treatment Note Visit Start Time 10:30 Visit Stop Time 11:20 Total Visit Minutes 50 Visit Number 5 Number of HR RECEPTIONIST Visits 2 Evaluation Information Evaluation Date 08/08/23 PT-OP-B Current Condition Start: 08/08/23 09:05 Freq: Status: Active Protocol: Document 08/15/23 11:37 AM (Rec: 08/15/23 12:49 AM [id number]) Current Condition History of Current Condition Onset Date Chronic Current Complaints L Shoulder mobility, R knee pain, L SIJ pain History of Current Condition Pt reports recent onset of L shoulder stiffness, R knee pain and L SIJ pain. Pt reports that she has been exercising more in the last year. Pt reports that she noticed the knee pain after standing at the art festival for 6 hours at a time. Pt has hx of R meniscus tear. Pt reports that she has pain at L low back. Pt reports difficulty with bending to garden secondary to low back pain. Pt has been taking celebrex and thinks that might be helping. Pt reports that she is typically very active, though now having difficulty ambulating more than 1 mile. Prior Treatments and Tests none PT-OP-C Subjective Start: 08/08/23 09:05 Freq: Status: Active Protocol: Document 08/28/23 10:25 NBM (Rec: 08/28/23 12:32 NBM [id number]) OP-PT Subjective Patient Comments Patient Comments Michelle reports she can almost get up from the floor by herself and she has been diligent with her PT ex's. Her knee pain continues to be the worst and she walked one mile yesterday without KT tape but retirement through her R knee pain started and worsened until she got home. She took the KT tape off after two days because it was coming off in the shower but it seemed to be helping a lot. PT-OP-D Balance Start: 08/08/23 09:05 Freq: Status: Active Protocol: Document 08/08/23 11:36 AM (Rec: 08/08/23 12:57 AM [id number]) Balance Tests Single Limb Standing Single Limb- Right 4 Single Limb- Left 2 PT-OP-E Functional Tests Start: 08/08/23 09:05 Freq: Status: Active Protocol: Document 08/08/23 11:36 AM (Rec: 08/08/23 12:57 AM [id number]) Functional Tests 30 Second Sit to Stand Test Score 10 Comments Pt with pain at lateral knee PT-OP-G Mobility & Gait Start: 08/08/23 09:05 Freq: Status: Active Protocol: Document 08/08/23 11:36 AM (Rec: 08/08/23 12:57 AM [id number]) OP Gait Assessment Gait Gait Assistance Required: Independent Assistive Devices Assistive Device None Gait Deviations General Gait Pattern Antalgic Factors Limiting Gait Function Factors Limiting Gait Function Decreased Strength,Pain PT-OP-J Posture/Palpation/Skin Start: 08/08/23 09:05 Freq: Status: Active Protocol: Document 08/08/23 11:36 AM (Rec: 08/08/23 12:57 AM [id number]) Palpation Assessment Location L hip Palpation Location L hip Palpation Findings Soft Tissue Tightness, Tenderness Palpation Details L glutes, piriformis are tender to palpation Knee Palpation Location R knee Palpation Findings Tenderness Palpation Details Right medial superior anterior knee (adductors and joint line), lateral anterior infrapatellar pain PT-OP-K Range of Motion Start: 08/08/23 09:05 Freq: Status: Active Protocol: Document 08/08/23 11:36 AM (Rec: 08/08/23 12:57 AM [id number]) Shoulder Goniometric Range of Motion Shoulder Left Passive Shoulder ROM WFL No Testing Position Supine Flexion 115 Abduction 109 External Rotation at 45 degrees 50 Abduction Left Shoulder ROM WFL No Testing Position Sitting Flexion 80 Abduction 65 Internal Rotation Behind Back (text) T3 Comments Aply ER: top of head Right Shoulder ROM WFL Yes Testing Position Sitting Flexion 160 Abduction 155 Internal Rotation Behind Back (text) T9 Comments Aply T4 Knee Goniometric Range of Motion Knee Left Flexion Active (degrees) 119 Extension Active (degrees) 0 Right Flexion Active (degrees) 125 Extension Active (degrees) 6 PT-OP-L Special Tests Start: 08/08/23 09:05 Freq: Status: Active Protocol: Document 08/08/23 11:36 AM (Rec: 08/08/23 12:57 AM [id number]) Special Tests Hip Special Tests UMU Test Results + on L PT-OP-M Strength Start: 08/08/23 09:05 Freq: Status: Active Protocol: Document 08/08/23 11:36 AM (Rec: 08/08/23 12:57 AM [id number]) Shoulder Strength Shoulder Manual Muscle Testing Right Flexion 4 Good Abduction (C5) 4 Good External Rotation 4 Good Internal Rotation 4 Good Left Flexion 3- Fair- Abduction (C5) 3- Fair- External Rotation 3- Fair- Internal Rotation 3- Fair- Hip Strength Hip Manual Muscle Testing Right Flexion (L2) 4 Good Abduction 3+ Fair+ Adduction 4 Good External Rotation 3+ Fair+ Internal Rotation 3+ Fair+ Left Flexion (L2) 4 Good Abduction 3+ Fair+ Adduction 4 Good External Rotation 3+ Fair+ Internal Rotation 3+ Fair+ Knee Strength Knee Manual Muscle Testing Right Flexion (S2) 4- Good- Extension (L3) 4- Good- Left Flexion (S2) 4 Good Extension (L3) 4+ Good+ PT-OP-Q Treatments Start: 08/08/23 09:05 Freq: Status: Active Protocol: Document 08/28/23 10:25 NBM (Rec: 08/28/23 12:32 NBM [id number]) Gym Equipment Shuttle Recovery LE stretch Details Calf/Hamstring stretch: 1. 30s hold 2. w/ankle pumps 3. manual HS stretch Shuttle Recovery Platform Stable Reps/Time 30s ea; cues for form and pain -free range; R>L tightness. Uni squats Details LE alignment focus Resistance 25# Shuttle Recovery Platform Stable Reps/Time 2x10 ea [place] squats Details Dc'd d/t R knee pn and resumed w/ KT tape; LE alignment focus Resistance 50# Shuttle Recovery Platform Stable Reps/Time 2 x10 Shuttle Balance Red clips Details next session Therapeutic Exercises Supine Exercises IT band stretch Supine Exercise Name added to HEP Side bilateral Equipment Used c/ strap Reps/Minutes 2 x 30s ea Comments cues for form HS stretch Supine Exercise Name added to HEP Side bilateral Equipment Used c/ strap Reps/Minutes 2 x 30s ea Manual Therapy Treatment Soft Tissue Mobilization R Knee Body Location quads, ITB Mobilization Type Rolling,Strumming,Sustained Pressure Intensity/Depth Moderate Body Position Sidelying Taping KT Body Location R knee Type of Tape Kinesio Tape Comments 1- band in C shape at R knee to encourage medial glide Pt instructed to remove tape if painful or itching, or else remove tape in 5 days if tolerated ok. Self-Care/Home Management Treatment Education Patient Education Home Exercise Program Other Education Education to pt re: ice and elevation above heart for knee swelling and pain management with osteoarthritis as needed. Added to HEP: Hamstring and IT band stretches with strap - HO given. PT-OP-T Assessment and Plan Start: 08/08/23 09:05 Freq: Status: Active Protocol: Document 08/28/23 10:25 NBM (Rec: 08/28/23 12:32 NBM [id number]) Physical Therapy Assessment Goals Balance Impairment Pt able to SLS for 4 seconds on R and 2 seconds on L Short Term Goal (STG) Pt able to SLS for 10 seconds bilaterally. STG Duration 09/05/23 Special Education Resource Teacher Goal (LTG) Pt able to SLS for 15 seconds bilaterally to demonstrate reduction in fall risk. LTG Duration 10/03/23 Gardening Impairment Pt unable to squat down to garden. Short Term Goal (STG) Pt able to demonstrate 13 STS squats without production of knee pain. STG Duration 09/05/23 Intermediate Goal (LTG) Pt able to demonstrate proper squat/kneeling without increase in pain to improve tolerance to gardening tasks. LTG Duration 10/03/23 Shoulder strength Impairment Pt with 3-/5 gross shoulder strength at L shoulder. Short Term Goal (STG) Pt with 3+/5 gross shoulder strength at L shoulder STG Duration 09/05/23 Special Education Resource Teacher Goal (LTG) Pt with 4-/5 gross shoulder strength at L shoulder LTG Duration 10/03/23 Shoulder ROM Impairment Pt with limited L shoulder AROM. Short Term Goal (STG) Pt with 10 deg improvement with shoulder flex, abd and ER . STG Duration 09/05/23 Special Education Resource Teacher Goal (LTG) Pt with 20 deg improvement with AROM shoulder flex, abd and ER. LTG Duration 10/03/23 Walking Impairment Pt unable to walk a mile without increase in knee/hip pain. Short Term Goal (STG) Pt able to walk 2 miles without increase in knee/hip pain. 08/28: Pt walked 1 mile yesterday w/o KT tape and R knee pain started retirement through and increased until home. STG Duration 09/05/23 Intermediate Goal (LTG) Pt able to walk 5 miles without increase in knee/hip pain. LTG Duration 10/03/23 LEFS Impairment Pt with 49/80 LEFS score Special Education Resource Teacher Goal (LTG) Pt with 56/80 LEFS score LTG Duration 10/03/23 Assessment Summary Assessment Michelle is unable to tolerate 50# bilateral squat supine on Shuttle Recovery due to R knee pain but after KT tape is applied to R knee to encourage medial patellar glide she is able to complete 2x10 reps ea bilaterally and unilaterally without pain. She requires cues with Hamstring and ITB stretching for gentle, pain- free range - added to HEP and HO given. R>L LE tightness noted. Education to pt re: ice and elevation above heart for knee swelling and pain management with osteoarthritis as needed. Physical Therapy Plan Frequency and Duration Frequency of Treatment 2x/Week Duration of treatment (weeks) 8 Plan of Care Start Date 08/08/23 Plan of Care End Date 10/03/23 Therapeutic Interventions Therapeutic Interventions Balance Training,Gait Training ,Home Exercise Program,Joint Mobilizations,Manual Therapy, Neuromuscular Re-education, Patient/Caregiver Education, Self-Care/Home Management,Soft Tissue Mobilization,Taping, Therapeutic Activities, Therapeutic Exercises Next Visit Focus/Plan Next Note Type Treatment Note Next Visit Plan Check response to walking with KT tape. Review HEP (HS and ITB stretch w/ strap.) Consider shuttle balance. POC: Continue L shoulder focus and LE HEP review.
--- NOTE | 2023-09-04 14:30 | PT-OP ANOTE ---
Pt presents to PT reporting she was doing her PT ex's and KT tape to L knee helps greatly, and much better until fall last when she was knocked down in a crowd with a snap sound for which she went to Emergency Department. She states X-ray showed no fracture but was diagnosed with L knee sprain. Per conversation with evaluating PT and pt's consent pt is rescheduled to 3:15p PT appt today with evaluating PT for re-evaluation.
--- NOTE | 2023-09-04 15:15 | PT.OTN ---
Current Diagnoses Polyosteoarthritis, unspecified (09/04/23) Adhesive capsulitis of left shoulder (09/04/23) Other shoulder lesions, left shoulder (09/04/23) Physical Therapy Treatment Note PT-OP-A Visit Information Start: 08/08/23 09:05 Freq: Status: Active Protocol: Document 09/04/23 15:15 AM (Rec: 09/04/23 17:14 AM [id number]) Out-Patient Physical Therapy Visit Information Visit Information Visit Type Treatment Note Visit Start Time 15:15 Visit Stop Time 16:03 Total Visit Minutes 48 Visit Number 6 Number of LASER ENGINEER Visits 2 PT-OP-B Current Condition Start: 08/08/23 09:05 Freq: Status: Active Protocol: Document 08/15/23 11:37 AM (Rec: 08/15/23 12:49 AM [id number]) Current Condition History of Current Condition Onset Date Chronic Current Complaints L Shoulder mobility, R knee pain, L SIJ pain History of Current Condition Pt reports recent onset of L shoulder stiffness, R knee pain and L SIJ pain. Pt reports that she has been exercising more in the last year. Pt reports that she noticed the knee pain after standing [place] the art [place] 6 hours at a time. Pt has hx of R meniscus tear. Pt reports that she has pain at L low back. Pt reports difficulty with bending to garden secondary to low back pain. Pt has been taking celebrex and thinks that might be helping. Pt reports that she is typically very active, though now having difficulty ambulating more than 1 mile. Prior Treatments and Tests none PT-OP-C Subjective Start: 08/08/23 09:05 Freq: Status: Active Protocol: Document 09/04/23 15:15 AM (Rec: 09/04/23 17:14 AM [id number]) OP-PT Subjective Patient Comments Patient Comments Pt reports that she had a fall last evening. Pt was going down a stairway with a big group of people. She got tripped by someone and she fell down the first step. Pt was able to to car and home that evening. In the middle of the night she got up to go to the bathroom and sharp pain at her knee with difficulty with walking. She went to the ER the following morning because she continued to have difficulty walking. Pt has been taking ibuprofen for that pain. Pt reports that right now her L knee pain is at 0/10 . Pt reports that she was able to sisal picker leaves prior to tx today. Pt denies swelling. Pt reports that her R knee did not seem to be worse following the fall. PT-OP-D Balance Start: 08/08/23 09:05 Freq: Status: Active Protocol: Document 08/08/23 11:36 AM (Rec: 08/08/23 12:57 AM [id number]) Balance Tests Single Limb Standing Single Limb- Right 4 Single Limb- Left 2 PT-OP-E Functional Tests Start: 08/08/23 09:05 Freq: Status: Active Protocol: Document 08/08/23 11:36 AM (Rec: 08/08/23 12:57 AM [id number]) Functional Tests 30 Second Sit to Stand Test Score 10 Comments Pt with pain at lateral knee PT-OP-G Mobility & Gait Start: 08/08/23 09:05 Freq: Status: Active Protocol: Document 08/08/23 11:36 AM (Rec: 08/08/23 12:57 AM [id number]) OP Gait Assessment Gait Gait Assistance Required: Independent Assistive Devices Assistive Device None Gait Deviations General Gait Pattern Antalgic Factors Limiting Gait Function Factors Limiting Gait Function Decreased Strength,Pain PT-OP-J Posture/Palpation/Skin Start: 08/08/23 09:05 Freq: Status: Active Protocol: Document 08/08/23 11:36 AM (Rec: 08/08/23 12:57 AM [id number]) Palpation Assessment Location L hip Palpation Location L hip Palpation Findings Soft Tissue Tightness, Tenderness Palpation Details L glutes, piriformis are tender to palpation Knee Palpation Location R knee Palpation Findings Tenderness Palpation Details Right medial superior anterior knee (adductors and joint line), lateral anterior infrapatellar pain PT-OP-K Range of Motion Start: 08/08/23 09:05 Freq: Status: Active Protocol: Document 09/04/23 15:15 AM (Rec: 09/04/23 17:14 AM [id number]) Knee Goniometric Range of Motion Knee Left Flexion Active (degrees) 123 Extension Active (degrees) 0 Right Flexion Active (degrees) 125 Extension Active (degrees) 0 PT-OP-L Special Tests Start: 08/08/23 09:05 Freq: Status: Active Protocol: Document 08/08/23 11:36 AM (Rec: 08/08/23 12:57 AM [id number]) Special Tests Hip Special Tests UMU Test Results + on L PT-OP-M Strength Start: 08/08/23 09:05 Freq: Status: Active Protocol: Document 08/08/23 11:36 AM (Rec: 08/08/23 12:57 AM [id number]) Shoulder Strength Shoulder Manual Muscle Testing Right Flexion 4 Good Abduction (C5) 4 Good External Rotation 4 Good Internal Rotation 4 Good Left Flexion 3- Fair- Abduction (C5) 3- Fair- External Rotation 3- Fair- Internal Rotation 3- Fair- Hip Strength Hip Manual Muscle Testing Right Flexion (L2) 4 Good Abduction 3+ Fair+ Adduction 4 Good External Rotation 3+ Fair+ Internal Rotation 3+ Fair+ Left Flexion (L2) 4 Good Abduction 3+ Fair+ Adduction 4 Good External Rotation 3+ Fair+ Internal Rotation 3+ Fair+ Knee Strength Knee Manual Muscle Testing Right Flexion (S2) 4- Good- Extension (L3) 4- Good- Left Flexion (S2) 4 Good Extension (L3) 4+ Good+ PT-OP-Q Treatments Start: 08/08/23 09:05 Freq: Status: Active Protocol: Document 09/04/23 15:15 AM (Rec: 09/04/23 17:14 AM [id number]) Therapeutic Exercises Supine Exercises IT band stretch Supine Exercise Name added to HEP Side bilateral Equipment Used L6 TB Reps/Minutes 2 x 30s ea Comments cues for form Bent knee fall out Supine Exercise Name BKFO Side bilateral Reps/Minutes x5 ea SAQ Side bilateral Reps/Minutes x10 ea LE Manual Therapy Treatment Taping KT-Left Body Location L knee Treatment Focus to improve knee stability Comments 3 I strips, 1 in C shape, reverse C shape and one vertical strip KT Body Location R knee Type of Tape Kinesio Tape Comments 1- band in C shape at R knee to encourage medial glide Pt instructed to remove tape if painful or itching, or else remove tape in 5 days if tolerated ok. Self-Care/Home Management Treatment Education Patient Education Home Exercise Program Other Education HEP reassessed following recent fall and L knee discomfort. Pt demonstrates good understanding. Pt to continue to do SAQ, ITB stretch, BKFO. Pt given KT to reapply as needed before next f/u. PT-OP-T Assessment and Plan Start: 08/08/23 09:05 Freq: Status: Active Protocol: Document 09/04/23 15:15 AM (Rec: 09/04/23 17:14 AM [id number]) Physical Therapy Assessment Goals Balance Impairment Pt able to SLS for 4 seconds on R and 2 seconds on L Short Term Goal (STG) Pt able to SLS for 10 seconds bilaterally. STG Duration 09/05/23 Assisted Goal (LTG) Pt able to SLS for 15 seconds bilaterally to demonstrate reduction in fall risk. LTG Duration 10/03/23 Gardening Impairment Pt unable to squat down to garden. Short Term Goal (STG) Pt able to demonstrate 13 STS squats without production of knee pain. STG Duration 09/05/23 Assisted Goal (LTG) Pt able to demonstrate proper squat/kneeling without increase in pain to improve tolerance to gardening tasks. LTG Duration 10/03/23 Shoulder strength Impairment Pt with 3-/5 gross shoulder strength at L shoulder. Short Term Goal (STG) Pt with 3+/5 gross shoulder strength at L shoulder STG Duration 09/05/23 Client Experience Manager Goal (LTG) Pt with 4-/5 gross shoulder strength at L shoulder LTG Duration 10/03/23 Shoulder ROM Impairment Pt with limited L shoulder AROM. Short Term Goal (STG) Pt with 10 deg improvement with shoulder flex, abd and ER . STG Duration 09/05/23 Assisted Goal (LTG) Pt with 20 deg improvement with AROM shoulder flex, abd and ER. LTG Duration 10/03/23 Walking Impairment Pt unable to walk a mile without increase in knee/hip pain. Short Term Goal (STG) Pt able to walk 2 miles without increase in knee/hip pain. 08/28: Pt walked 1 mile yesterday w/o KT tape and R knee pain started detention through and increased until home. STG Duration 09/05/23 Assisted Goal (LTG) Pt able to walk 5 miles without increase in knee/hip pain. LTG Duration 10/03/23 LEFS Impairment Pt with 49/80 LEFS score Client Experience Manager Goal (LTG) Pt with 56/80 LEFS score LTG Duration 10/03/23 Assessment Summary Assessment Pt without production of increased L knee pain with HEP . Pt demonstrates R=L knee ROM and strength. Pt without gait impairment secondary to recent onset of L knee pain. Pt would benefit from gradual return to prior exercises as tolerated, though demonstrated no increase in L knee pain during exercises today. Physical Therapy Plan Frequency and Duration Frequency of Treatment 2x/Week Duration of treatment (weeks) 8 Plan of Care Start Date 08/08/23 Plan of Care End Date 10/03/23 Therapeutic Interventions Therapeutic Interventions Balance Training,Gait Training ,Home Exercise Program,Joint Mobilizations,Manual Therapy, Neuromuscular Re-education, Patient/Caregiver Education, Self-Care/Home Management,Soft Tissue Mobilization,Taping, Therapeutic Activities, Therapeutic Exercises Next Visit Focus/Plan Next Note Type Progress Note Next Visit Plan Progress HEP as tolerated, reassess goals
--- NOTE | 2023-09-11 11:31 | PT.OTN ---
Current Diagnoses Polyosteoarthritis, unspecified (09/11/23) Adhesive capsulitis of left shoulder (09/11/23) Other shoulder lesions, left shoulder (09/11/23) Physical Therapy Treatment Note PT-OP-A Visit Information Start: 08/08/23 09:05 Freq: Status: Active Protocol: Document 09/11/23 11:31 AM (Rec: 09/11/23 14:58 AM [id number]) Out-Patient Physical Therapy Visit Information Visit Information Visit Type Treatment Note Visit Start Time 11:31 Visit Stop Time 12:18 Total Visit Minutes 47 Visit Number 7 PT-OP-B Current Condition Start: 08/08/23 09:05 Freq: Status: Active Protocol: Document 08/15/23 11:37 AM (Rec: 08/15/23 12:49 AM [id number]) Current Condition History of Current Condition Onset Date Chronic Current Complaints L Shoulder mobility, R knee pain, L SIJ pain History of Current Condition Pt reports recent onset of L shoulder stiffness, R knee pain and L SIJ pain. Pt reports that she has been exercising more in the last year. Pt reports that she noticed the knee pain [place] 6 hours at a time. Pt has hx of R meniscus tear. Pt reports that she has pain at L low back. Pt reports difficulty with bending to garden secondary to low back pain. Pt has been taking celebrex and thinks that might be helping. Pt reports that she is typically very active, though now having difficulty ambulating more than 1 mile. Prior Treatments and Tests none PT-OP-C Subjective Start: 08/08/23 09:05 Freq: Status: Active Protocol: Document 09/11/23 11:31 AM (Rec: 09/11/23 14:58 AM [id number]) OP-PT Subjective Patient Comments Patient Comments Pt reports that her knees are loosening up with the exercises that she has been given. Pt reports that she can feel that she can get up off of the floor. Pt reports that she feels that her L hip pain is almost completely gone. Pt reports that she feels good about the level and amount of exercise that she is currently doing in her HEP. Pt reports that she does not like the KT anymore because she feels that it limits her knee mobility too much, especially when she tries to get off of the floor. PT-OP-D Balance Start: 08/08/23 09:05 Freq: Status: Active Protocol: Document 08/08/23 11:36 AM (Rec: 08/08/23 12:57 AM [id number]) Balance Tests Single Limb Standing Single Limb- Right 4 Single Limb- Left 2 PT-OP-E Functional Tests Start: 08/08/23 09:05 Freq: Status: Active Protocol: Document 08/08/23 11:36 AM (Rec: 08/08/23 12:57 AM [id number]) Functional Tests 30 Second Sit to Stand Test Score 10 Comments Pt with pain at lateral knee PT-OP-G Mobility & Gait Start: 08/08/23 09:05 Freq: Status: Active Protocol: Document 08/08/23 11:36 AM (Rec: 08/08/23 12:57 AM [email or web address] [id number]) OP Gait Assessment Gait Gait Assistance Required: Independent Assistive Devices Assistive Device None Gait Deviations General Gait Pattern Antalgic Factors Limiting Gait Function Factors Limiting Gait Function Decreased Strength,Pain PT-OP-J Posture/Palpation/Skin Start: 08/08/23 09:05 Freq: Status: Active Protocol: Document 08/08/23 11:36 AM (Rec: 08/08/23 12:57 AM [id number]) Palpation Assessment Location L hip Palpation Location L hip Palpation Findings Soft Tissue Tightness, Tenderness Palpation Details L glutes, piriformis are tender to palpation Knee Palpation Location R knee Palpation Findings Tenderness Palpation Details Right medial superior anterior knee (adductors and joint line), lateral anterior infrapatellar pain PT-OP-K Range of Motion Start: 08/08/23 09:05 Freq: Status: Active Protocol: Document 09/04/23 15:15 AM (Rec: 09/04/23 17:14 AM [id number]) Knee Goniometric Range of Motion Knee Left Flexion Active (degrees) 123 Extension Active (degrees) 0 Right Flexion Active (degrees) 125 Extension Active (degrees) 0 PT-OP-L Special Tests Start: 08/08/23 09:05 Freq: Status: Active Protocol: Document 08/08/23 11:36 AM (Rec: 08/08/23 12:57 AM [id number]) Special Tests Hip Special Tests UMU Test Results + on L PT-OP-M Strength Start: 08/08/23 09:05 Freq: Status: Active Protocol: Document 08/08/23 11:36 AM (Rec: 08/08/23 12:57 AM [id number]) Shoulder Strength Shoulder Manual Muscle Testing Right Flexion 4 Good Abduction (C5) 4 Good External Rotation 4 Good Internal Rotation 4 Good Left Flexion 3- Fair- Abduction (C5) 3- Fair- External Rotation 3- Fair- Internal Rotation 3- Fair- Hip Strength Hip Manual Muscle Testing Right Flexion (L2) 4 Good Abduction 3+ Fair+ Adduction 4 Good External Rotation 3+ Fair+ Internal Rotation 3+ Fair+ Left Flexion (L2) 4 Good Abduction 3+ Fair+ Adduction 4 Good External Rotation 3+ Fair+ Internal Rotation 3+ Fair+ Knee Strength Knee Manual Muscle Testing Right Flexion (S2) 4- Good- Extension (L3) 4- Good- Left Flexion (S2) 4 Good Extension (L3) 4+ Good+ PT-OP-Q Treatments Start: 08/08/23 09:05 Freq: Status: Active Protocol: Document 09/11/23 11:31 AM (Rec: 09/11/23 14:58 AM [id number]) Gym Equipment Shuttle Recovery Uni squats Details LE alignment focus Resistance 25# Shuttle Recovery Platform Stable Reps/Time 2x10 ea [place] squats Details Pt able to do with ball between LE for improved VMO Resistance 50# Shuttle Recovery Platform Stable Reps/Time 2 x10 Therapeutic Exercises Supine Exercises HS stretch Supine Exercise Name added to HEP Side bilateral Equipment Used c/ strap Reps/Minutes 2 x 30s ea Comments manual Bent knee fall out Supine Exercise Name BKFO Side bilateral Reps/Minutes x10 Comments cues for lumbopelvic stability SAQ Side bilateral Reps/Minutes 2x10 ea LE Bridge Reps/Minutes x10 Other Exercises Kneeling hip flexor stretch Side bilateral Equipment Used blue cushion and tx table to UE assist Reps/Minutes x30 sec ea LE PT-OP-T Assessment and Plan Start: 08/08/23 09:05 Freq: Status: Active Protocol: Document 09/11/23 11:31 AM (Rec: 09/11/23 14:58 AM [id number]) Physical Therapy Assessment Goals Balance Impairment Pt able to SLS for 4 seconds on R and 2 seconds on L Short Term Goal (STG) Pt able to SLS for 10 seconds bilaterally. STG Duration 09/05/23 Half-Way Goal (LTG) Pt able to SLS for 15 seconds bilaterally to demonstrate reduction in fall risk. LTG Duration 10/03/23 Gardening Impairment Pt unable to squat down to garden. Short Term Goal (STG) Pt able to demonstrate 13 STS squats without production of knee pain. STG Duration 09/05/23 Half-Way Goal (LTG) Pt able to demonstrate proper squat/kneeling without increase in pain to improve tolerance to gardening tasks. LTG Duration 10/03/23 Shoulder strength Impairment Pt with 3-/5 gross shoulder strength at L shoulder. Short Term Goal (STG) Pt with 3+/5 gross shoulder strength at L shoulder STG Duration 09/05/23 Half-Way Goal (LTG) Pt with 4-/5 gross shoulder strength at L shoulder LTG Duration 10/03/23 Shoulder ROM Impairment Pt with limited L shoulder AROM. Short Term Goal (STG) Pt with 10 deg improvement with shoulder flex, abd and ER . STG Duration 09/05/23 Half-Way Goal (LTG) Pt with 20 deg improvement with AROM shoulder flex, abd and ER. LTG Duration 10/03/23 Walking Impairment Pt unable to walk a mile without increase in knee/hip pain. Short Term Goal (STG) Pt able to walk 2 miles without increase in knee/hip pain. 08/28: Pt walked 1 mile yesterday w/o KT tape and R knee pain started alf through and increased until home. STG Duration 09/05/23 Half-Way Goal (LTG) Pt able to walk 5 miles without increase in knee/hip pain. LTG Duration 10/03/23 LEFS Impairment Pt with 49/[address] Judge Goal (LTG) Pt with 56/80 LEFS score LTG Duration 10/03/23 Assessment Summary Assessment Pt demonstrates good tolerance to kneeling hip flexor stretch, though reports significant stretch at bilateral quads/hip flexors. Pt tolerated unilateral squats on shuttle with careful attention to LE alignment during motion. Pt with crepitus and discomfort with bilateral squat, which resolved with ball adduction facilitation during motion. Pt challenged with lunge position required to get on/ off of floor independently, secondary to discomfort. Pt would benefit from continued PT to progress LE strength and mobility for improved tolerance to functional tasks. Physical Therapy Plan Frequency and Duration Frequency of Treatment 2x/Week Duration of treatment (weeks) 8 Plan of Care Start Date 08/08/23 Plan of Care End Date 10/03/23 Therapeutic Interventions Therapeutic Interventions Balance Training,Gait Training ,Home Exercise Program,Joint Mobilizations,Manual Therapy, Neuromuscular Re-education, Patient/Caregiver Education, Self-Care/Home Management,Soft Tissue Mobilization,Taping, Therapeutic Activities, Therapeutic Exercises Next Visit Focus/Plan Next Note Type Progress Note Next Visit Plan Progress HEP as tolerated, reassess goals
--- NOTE | 2023-09-14 11:33 | PT.OTN ---
Current Diagnoses Polyosteoarthritis, unspecified (09/14/23) Adhesive capsulitis of left shoulder (09/14/23) Other shoulder lesions, left shoulder (09/14/23) Physical Therapy Treatment Note PT-OP-A Visit Information Start: 08/08/23 09:05 Freq: Status: Active Protocol: Document 09/14/23 11:33 AM (Rec: 09/14/23 11:40 AM [id number]) Out-Patient Physical Therapy Visit Information Visit Information Visit Type Progress Note Visit Start Time 11:33 Visit Stop Time 12:18 Total Visit Minutes 45 Visit Number 8 PT-OP-B Current Condition Start: 08/08/23 09:05 Freq: Status: Active Protocol: Document 08/15/23 11:37 AM (Rec: 08/15/23 12:49 AM [id number]) Current Condition History of Current Condition Onset Date Chronic Current Complaints L Shoulder mobility, R knee pain, L SIJ pain History of Current Condition Pt reports recent onset of L shoulder stiffness, R knee pain and L SIJ pain. Pt reports that she has been exercising more in the last year. Pt reports that she noticed the knee pain after standing [place] the art [place] 6 hours at a time. Pt has hx of R meniscus tear. Pt reports that she has pain at L low back. Pt reports difficulty with bending to garden secondary to low back pain. Pt has been taking celebrex and thinks that might be helping. Pt reports that she is typically very active, though now having difficulty ambulating more than 1 mile. Prior Treatments and Tests none PT-OP-C Subjective Start: 08/08/23 09:05 Freq: Status: Active Protocol: Document 09/14/23 11:33 AM (Rec: 09/14/23 16:13 AM [id number]) OP-PT Subjective Patient Comments Patient Comments Pt reports that she continues to improve with ability to get up from the ground without UE support. Pt reports that she feels her LE symptoms are improving overall. PT-OP-D Balance Start: 08/08/23 09:05 Freq: Status: Active Protocol: Document 09/14/23 11:33 AM (Rec: 09/14/23 11:44 AM [id number]) Balance Tests Single Limb Standing Single Limb- Right 6 Single Limb- Left 7 PT-OP-E Functional Tests Start: 08/08/23 09:05 Freq: Status: Active Protocol: Document 09/14/23 11:33 AM (Rec: 09/14/23 11:44 AM [id number]) Functional Tests 30 Second Sit to Stand Test Score 9 Comments pain at bilateral patellar tendons PT-OP-G Mobility & Gait Start: 08/08/23 09:05 Freq: Status: Active Protocol: Document 08/08/23 11:36 AM (Rec: 08/08/23 12:57 AM [id number]) OP Gait Assessment Gait Gait Assistance Required: Independent Assistive Devices Assistive Device None Gait Deviations General Gait Pattern Antalgic Factors Limiting Gait Function Factors Limiting Gait Function Decreased Strength,Pain PT-OP-J Posture/Palpation/Skin Start: 08/08/23 09:05 Freq: Status: Active Protocol: Document 08/08/23 11:36 AM (Rec: 08/08/23 12:57 AM [id number]) Palpation Assessment Location L hip Palpation Location L hip Palpation Findings Soft Tissue Tightness, Tenderness Palpation Details L glutes, piriformis are tender to palpation Knee Palpation Location R knee Palpation Findings Tenderness Palpation Details Right medial superior anterior knee (adductors and joint line), lateral anterior infrapatellar pain PT-OP-K Range of Motion Start: 08/08/23 09:05 Freq: Status: Active Protocol: Document 09/14/23 11:33 AM (Rec: 09/14/23 11:40 AM [id number]) Shoulder Goniometric Range of Motion Shoulder Left Flexion 85 Abduction 65 PT-OP-L Special Tests Start: 08/08/23 09:05 Freq: Status: Active Protocol: Document 08/08/23 11:36 AM (Rec: 08/08/23 12:57 AM [id number]) Special Tests Hip Special Tests UMU Test Results + on L PT-OP-M Strength Start: 08/08/23 09:05 Freq: Status: Active Protocol: Document 08/08/23 11:36 AM (Rec: 08/08/23 12:57 AM [id number]) Shoulder Strength Shoulder Manual Muscle Testing Right Flexion 4 Good Abduction (C5) 4 Good External Rotation 4 Good Internal Rotation 4 Good Left Flexion 3- Fair- Abduction (C5) 3- Fair- External Rotation 3- Fair- Internal Rotation 3- Fair- Hip Strength Hip Manual Muscle Testing Right Flexion (L2) 4 Good Abduction 3+ Fair+ Adduction 4 Good External Rotation 3+ Fair+ Internal Rotation 3+ Fair+ Left Flexion (L2) 4 Good Abduction 3+ Fair+ Adduction 4 Good External Rotation 3+ Fair+ Internal Rotation 3+ Fair+ Knee Strength Knee Manual Muscle Testing Right Flexion (S2) 4- Good- Extension (L3) 4- Good- Left Flexion (S2) 4 Good Extension (L3) 4+ Good+ PT-OP-Q Treatments Start: 08/08/23 09:05 Freq: Status: Active Protocol: Document 09/14/23 11:33 AM (Rec: 09/14/23 12:02 AM [id number]) Therapeutic Exercises Supine Exercises SAQ Side bilateral Resistance 2# Reps/Minutes 2x10 ea LE Bridge Side bilateral Comments ball between knees for VMO activation Sidelying Exercises Clamshell Side bilateral Reps/Minutes x12 Standing Exercises Step up Equipment Used 6 in step with arianne hand rails Reps/Minutes x5 Comments cues to decrease knee valgus Manual Therapy Treatment Soft Tissue Mobilization R Knee Body Location R quads, ITB Mobilization Type Instrument Assisted,Rolling Intensity/Depth Moderate Body Position Supine with foam roll under knees Joint Mobilizations Patellar mob Joint Inf glide, med glide Grade II PT-OP-T Assessment and Plan Start: 08/08/23 09:05 Freq: Status: Active Protocol: Document 09/14/23 11:33 AM (Rec: 09/14/23 11:40 AM [id number]) Physical Therapy Assessment Goals Balance Impairment Pt able to SLS for 4 seconds on R and 2 seconds on L Short Term Goal (STG) Pt able to SLS for 10 seconds bilaterally. 09/14/23: Pt progressing towards goal. Pt able to SLS on R LE for 6 seconds and L LE For 7 seconds. STG Duration 09/05/23 Mcfp Goal (LTG) Pt able to SLS for 15 seconds bilaterally to demonstrate reduction in fall risk. LTG Duration 10/03/23 Gardening Impairment Pt unable to squat down to garden. Short Term Goal (STG) Pt able to demonstrate 13 STS squats without production of knee pain. 09/14/23: Pt continues to demonstrate pain with repetitive STS squat. STG Duration 09/05/23 Physical Meteorologist Goal (LTG) Pt able to demonstrate proper squat/kneeling without increase in pain to improve tolerance to gardening tasks. LTG Duration 10/03/23 Shoulder strength Impairment Pt with 3-/5 gross shoulder strength at L shoulder. Short Term Goal (STG) Pt with 3+/5 gross shoulder strength at L shoulder 09/14/23: Pt continues to have weakness at L shoulder. Pt has wanted to focus on R knee at this time. STG Duration 09/05/23 Physical Meteorologist Goal (LTG) Pt with 4-/5 gross shoulder strength at L shoulder LTG Duration 10/03/23 Shoulder ROM Impairment Pt with limited L shoulder AROM. Short Term Goal (STG) Pt with 10 deg improvement with shoulder flex, abd and ER . 09/13/23: Tx focus has been primarily on LE. Minimal change in L shoulder mobility. STG Duration 09/05/23 Physical Meteorologist Goal (LTG) Pt with 20 deg improvement with AROM shoulder flex, abd and ER. LTG Duration 10/03/23 Walking Impairment Pt unable to walk a mile without increase in knee/hip pain. Short Term Goal (STG) Pt able to walk 2 miles without increase in knee/hip pain. 08/28: Pt walked 1 mile yesterday w/o KT tape and R knee pain started senior living through and increased until home. 09/14/23: Pt walked 1.5 miles with minimal increase in pain. STG Duration 09/05/23 Physical Meteorologist Goal (LTG) Pt able to walk 5 miles without increase in knee/hip pain. LTG Duration 10/03/23 LEFS Impairment Pt with 49/80 LEFS score Physical Meteorologist Goal (LTG) Pt with 56/80 LEFS score LTG Duration 10/03/23 Assessment Summary Assessment Pt demonstrates progress towards STG. Pt demonstrates improving overall tolerance to shuttle uni and arianne squats. Pt cued for decreased knee valgus when ascending stairs, which did not increase her knee pain with this activity. Pt demonstrated tenderness at R quads with STM today. Pt demonstrates gradual improvement in SLS balance bilaterally. Physical Therapy Plan Frequency and Duration Frequency of Treatment 2x/Week Duration of treatment (weeks) 8 Plan of Care Start Date 08/08/23 Plan of Care End Date 10/03/23 Therapeutic Interventions Therapeutic Interventions Balance Training,Gait Training ,Home Exercise Program,Joint Mobilizations,Manual Therapy, Neuromuscular Re-education, Patient/Caregiver Education, Self-Care/Home Management,Soft Tissue Mobilization,Taping, Therapeutic Activities, Therapeutic Exercises Next Visit Focus/Plan Next Note Type Treatment Note Next Visit Plan Progress LE Strengthening, add to UE HEP, trial mini lunge and squat to improve strength for getting off of floor
--- NOTE | 2023-09-21 11:29 | PT.OTN ---
Current Diagnoses Polyosteoarthritis, unspecified (09/21/23) Adhesive capsulitis of left shoulder (09/21/23) Other shoulder lesions, left shoulder (09/21/23) Physical Therapy Treatment Note PT-OP-A Visit Information Start: 08/08/23 09:05 Freq: Status: Active Protocol: Document 09/21/23 11:29 AM (Rec: 09/21/23 13:35 AM [id number]) Out-Patient Physical Therapy Visit Information Visit Information Visit Type Treatment Note Visit Start Time 11:30 Visit Stop Time 12:15 Total Visit Minutes 45 Visit Number 10 PT-OP-B Current Condition Start: 08/08/23 09:05 Freq: Status: Active Protocol: Document 08/15/23 11:37 AM (Rec: 08/15/23 12:49 AM [id number]) Current Condition History of Current Condition Onset Date Chronic Current Complaints L Shoulder mobility, R knee pain, L SIJ pain History of Current Condition Pt reports recent onset of L shoulder stiffness, R knee pain and L SIJ pain. Pt reports that she has been exercising more in the last year. Pt reports that she noticed the knee pain [place] 6 hours at a time. Pt has hx of R meniscus tear. Pt reports that she has pain at L low back. Pt reports difficulty with bending to garden secondary to low back pain. Pt has been taking celebrex and thinks that might be helping. Pt reports that she is typically very active, though now having difficulty ambulating more than 1 mile. Prior Treatments and Tests none PT-OP-C Subjective Start: 08/08/23 09:05 Freq: Status: Active Protocol: Document 09/21/23 11:29 AM (Rec: 09/21/23 13:35 AM [id number]) OP-PT Subjective Patient Comments Patient Comments Pt reports that she was moving heavy chairs yesterday, so a little sore at her muscles. PT-OP-D Balance Start: 08/08/23 09:05 Freq: Status: Active Protocol: Document 09/14/23 11:33 AM (Rec: 09/14/23 11:44 AM [id number]) Balance Tests Single Limb Standing Single Limb- Right 6 Single Limb- Left 7 PT-OP-E Functional Tests Start: 08/08/23 09:05 Freq: Status: Active Protocol: Document 09/14/23 11:33 AM (Rec: 09/14/23 11:44 AM [id number]) Functional Tests 30 Second Sit to Stand Test Score 9 Comments pain at bilateral patellar tendons PT-OP-G Mobility & Gait Start: 08/08/23 09:05 Freq: Status: Active Protocol: Document 08/08/23 11:36 AM (Rec: 08/08/23 12:57 AM [id number]) OP Gait Assessment Gait Gait Assistance Required: Independent Assistive Devices Assistive Device None Gait Deviations General Gait Pattern Antalgic Factors Limiting Gait Function Factors Limiting Gait Function Decreased Strength,Pain PT-OP-J Posture/Palpation/Skin Start: 08/08/23 09:05 Freq: Status: Active Protocol: Document 08/08/23 11:36 AM (Rec: 08/08/23 12:57 AM [id number]) Palpation Assessment Location L hip Palpation Location L hip Palpation Findings Soft Tissue Tightness, Tenderness Palpation Details L glutes, piriformis are tender to palpation Knee Palpation Location R knee Palpation Findings Tenderness Palpation Details Right medial superior anterior knee (adductors and joint line), lateral anterior infrapatellar pain PT-OP-K Range of Motion Start: 08/08/23 09:05 Freq: Status: Active Protocol: Document 09/14/23 11:33 AM (Rec: 09/14/23 11:40 AM [id number]) Shoulder Goniometric Range of Motion Shoulder Left Flexion 85 Abduction 65 PT-OP-L Special Tests Start: 08/08/23 09:05 Freq: Status: Active Protocol: Document 08/08/23 11:36 AM (Rec: 08/08/23 12:57 AM [id number]) Special Tests Hip Special Tests UMU Test Results + on L PT-OP-M Strength Start: 08/08/23 09:05 Freq: Status: Active Protocol: Document 08/08/23 11:36 AM (Rec: 08/08/23 12:57 AM [id number]) Shoulder Strength Shoulder Manual Muscle Testing Right Flexion 4 Good Abduction (C5) 4 Good External Rotation 4 Good Internal Rotation 4 Good Left Flexion 3- Fair- Abduction (C5) 3- Fair- External Rotation 3- Fair- Internal Rotation 3- Fair- Hip Strength Hip Manual Muscle Testing Right Flexion (L2) 4 Good Abduction 3+ Fair+ Adduction 4 Good External Rotation 3+ Fair+ Internal Rotation 3+ Fair+ Left Flexion (L2) 4 Good Abduction 3+ Fair+ Adduction 4 Good External Rotation 3+ Fair+ Internal Rotation 3+ Fair+ Knee Strength Knee Manual Muscle Testing Right Flexion (S2) 4- Good- Extension (L3) 4- Good- Left Flexion (S2) 4 Good Extension (L3) 4+ Good+ PT-OP-Q Treatments Start: 08/08/23 09:05 Freq: Status: Active Protocol: Document 09/21/23 11:29 AM (Rec: 09/21/23 13:35 AM [id number]) Therapeutic Exercises Supine Exercises Sah[place]ann low ab Reps/Minutes x5 Bent knee fall out Side bilateral Resistance [place] TB Reps/Minutes x10 Bridge Side bilateral Comments ball between knees for VMO activation Sidelying Exercises [place]amshell Side bilateral Reps/Minutes x12 Sitting Exercises Shoulder kevin Sitting Exercise Name shoulder flexion Reps/Minutes x10 Standing Exercises Standing row Resistance GTB Reps/Minutes x10 Hip abduction Standing Exercise Name Standing hip abduction Side bilateral Reps/Minutes x10 Side step Standing Exercise Name Side step Side bilateral Resistance [place] TB Equipment Used in // bars Reps/Minutes 2x length of // bars ea direction Gait Training Gait Activity No AD Device Used No AD Level of Assistance even Comments Ambulation without AD with cueing to decrease knee valgus and increase glute activation Trekking pole Device Used trekking pole Surface even Comments Gait training with trekking pole to decrease strain on R knee. Pt required cueing for trekking pole timing, which improved with repetition. PT-OP-T Assessment and Plan Start: 08/08/23 09:05 Freq: Status: Active Protocol: Document 09/21/23 11:29 AM (Rec: 09/21/23 13:35 AM [id number]) Physical Therapy Assessment Goals Balance Impairment Pt able to SLS for 4 seconds on R and 2 seconds on L Short Term Goal (STG) Pt able to SLS for 10 seconds bilaterally. 09/14/23: Pt progressing towards goal. Pt able to SLS on R LE for 6 seconds and L LE For 7 seconds. STG Duration 09/05/23 Fpc Goal (LTG) Pt able to SLS for 15 seconds bilaterally to demonstrate reduction in fall risk. LTG Duration 10/03/23 Gardening Impairment Pt unable to squat down to garden. Short Term Goal (STG) Pt able to demonstrate 13 STS squats without production of knee pain. 09/14/23: Pt continues to demonstrate pain with repetitive STS squat. STG Duration 09/05/23 Brick Veneer Maker Goal (LTG) Pt able to demonstrate proper squat/kneeling without increase in pain to improve tolerance to gardening tasks. LTG Duration 10/03/23 Shoulder strength Impairment Pt with 3-/5 gross shoulder strength at L shoulder. Short Term Goal (STG) Pt with 3+/5 gross shoulder strength at L shoulder 09/14/23: Pt continues to have weakness at L shoulder. Pt has wanted to focus on R knee at this time. STG Duration 09/05/23 Fpc Goal (LTG) Pt with 4-/5 gross shoulder strength at L shoulder LTG Duration 10/03/23 Shoulder ROM Impairment Pt with limited L shoulder AROM. Short Term Goal (STG) Pt with 10 deg improvement with shoulder flex, abd and ER . 09/13/23: Tx focus has been primarily on LE. Minimal change in L shoulder mobility. STG Duration 09/05/23 Brick Veneer Maker Goal (LTG) Pt with 20 deg improvement with AROM shoulder flex, abd and ER. LTG Duration 10/03/23 Walking Impairment Pt unable to walk a mile without increase in knee/hip pain. Short Term Goal (STG) Pt able to walk 2 miles without increase in knee/hip pain. 08/28: Pt walked 1 mile yesterday w/o KT tape and R knee pain started long term through and increased until home. 09/14/23: Pt walked 1.5 miles with minimal increase in pain. STG Duration 09/05/23 Fpc Goal (LTG) Pt able to walk 5 miles without increase in knee/hip pain. LTG Duration 10/03/23 LEFS Impairment Pt with 49/80 LEFS score Brick Veneer Maker Goal (LTG) Pt with 56/80 LEFS score LTG Duration 10/03/23 Assessment Summary Assessment Pt challenged with timing and coordination with ambulation with trekking pole. Pt demonstraes improved gait pattern with cues to control for knee valgus stress. Pt demonstrates fair trunk stabilization with table exercises. Pt required cueing for LT and decrease UT with theraband row. Pt would benefit from continued PT to progress functional strength and mobility. Physical Therapy Plan Frequency and Duration Frequency of Treatment 2x/Week Duration of treatment (weeks) 8 Plan of Care Start Date 08/08/23 Plan of Care End Date 10/03/23 Therapeutic Interventions Therapeutic Interventions Balance Training,Gait Training ,Home Exercise Program,Joint Mobilizations,Manual Therapy, Neuromuscular Re-education, Patient/Caregiver Education, Self-Care/Home Management,Soft Tissue Mobilization,Taping, Therapeutic Activities, Therapeutic Exercises Next Visit Focus/Plan Next Note Type Treatment Note Next Visit Plan cont to work with gait pattern and trekking pole. trial outside walking with trekking pole if appropriate
--- NOTE | 2023-09-25 09:50 | PT.OTN ---
Current Diagnoses Polyosteoarthritis, unspecified (09/25/23) Adhesive capsulitis of left shoulder (09/25/23) Other shoulder lesions, left shoulder (09/25/23) Physical Therapy Treatment Note PT-OP-A Visit Information Start: 08/08/23 09:05 Freq: Status: Active Protocol: Document 09/25/23 09:50 AM (Rec: 09/25/23 11:59 AM [id number]) Out-Patient Physical Therapy Visit Information Visit Information Visit Type Treatment Note Visit Start Time 09:50 Visit Stop Time 10:31 Total Visit Minutes 41 Visit Number 11 PT-OP-B Current Condition Start: 08/08/23 09:05 Freq: Status: Active Protocol: Document 08/15/23 11:37 AM (Rec: 08/15/23 12:49 AM [id number]) Current Condition History of Current Condition Onset Date Chronic Current Complaints L Shoulder mobility, R knee pain, L SIJ pain History of Current Condition Pt reports recent onset of L shoulder stiffness, R knee pain and L SIJ pain. Pt reports that she has been exercising more in the last year. Pt reports that she noticed the knee pain after standing [place] the art [place] 6 hours at a time. Pt has hx of R meniscus tear. Pt reports that she has pain at L low back. Pt reports difficulty with bending to garden secondary to low back pain. Pt has been taking celebrex and thinks that might be helping. Pt reports that she is typically very active, though now having difficulty ambulating more than 1 mile. Prior Treatments and Tests none PT-OP-C Subjective Start: 08/08/23 09:05 Freq: Status: Active Protocol: Document 09/25/23 09:50 AM (Rec: 09/25/23 11:59 AM [id number]) OP-PT Subjective Patient Comments Patient Comments Pt reports that she can stand up and sit down without increase in knee pain. Pt reports that she is improving with getting up off of the floor. Pt reports that she is walking 1.5 miles. Pt reports that she is not having knee pain when ascending/descending stairs. Pt reports that she is not interested in cont to train with trekking poles, because she does not think that she wants to use them for walking at this point. PT-OP-D Balance Start: 08/08/23 09:05 Freq: Status: Active Protocol: Document 09/14/23 11:33 AM (Rec: 09/14/23 11:44 AM [id number]) Balance Tests Single Limb Standing Single Limb- Right 6 Single Limb- Left 7 PT-OP-E Functional Tests Start: 08/08/23 09:05 Freq: Status: Active Protocol: Document 09/14/23 11:33 AM (Rec: 09/14/23 11:44 AM [id number]) Functional Tests 30 Second Sit to Stand Test Score 9 Comments pain at bilateral patellar tendons PT-OP-G Mobility & Gait Start: 08/08/23 09:05 Freq: Status: Active Protocol: Document 08/08/23 11:36 AM (Rec: 08/08/23 12:57 AM [id number]) OP Gait Assessment Gait Gait Assistance Required: Independent Assistive Devices Assistive Device None Gait Deviations General Gait Pattern Antalgic Factors Limiting Gait Function Factors Limiting Gait Function Decreased Strength,Pain PT-OP-J Posture/Palpation/Skin Start: 08/08/23 09:05 Freq: Status: Active Protocol: Document 08/08/23 11:36 AM (Rec: 08/08/23 12:57 AM [id number]) Palpation Assessment Location L hip Palpation Location L hip Palpation Findings Soft Tissue Tightness, Tenderness Palpation Details L glutes, piriformis are tender to palpation Knee Palpation Location R knee Palpation Findings Tenderness Palpation Details Right medial superior anterior knee (adductors and joint line), lateral anterior infrapatellar pain PT-OP-K Range of Motion Start: 08/08/23 09:05 Freq: Status: Active Protocol: Document 09/14/23 11:33 AM (Rec: 09/14/23 11:40 AM [id number]) Shoulder Goniometric Range of Motion Shoulder Left Flexion 85 Abduction 65 PT-OP-L Special Tests Start: 08/08/23 09:05 Freq: Status: Active Protocol: Document 08/08/23 11:36 AM (Rec: 08/08/23 12:57 AM [id number]) Special Tests Hip Special Tests UMU Test Results + on L PT-OP-M Strength Start: 08/08/23 09:05 Freq: Status: Active Protocol: Document 08/08/23 11:36 AM (Rec: 08/08/23 12:57 AM [id number]) Shoulder Strength Shoulder Manual Muscle Testing Right Flexion 4 Good Abduction (C5) 4 Good External Rotation 4 Good Internal Rotation 4 Good Left Flexion 3- Fair- Abduction (C5) 3- Fair- External Rotation 3- Fair- Internal Rotation 3- Fair- Hip Strength Hip Manual Muscle Testing Right Flexion (L2) 4 Good Abduction 3+ Fair+ Adduction 4 Good External Rotation 3+ Fair+ Internal Rotation 3+ Fair+ Left Flexion (L2) 4 Good Abduction 3+ Fair+ Adduction 4 Good External Rotation 3+ Fair+ Internal Rotation 3+ Fair+ Knee Strength Knee Manual Muscle Testing Right Flexion (S2) 4- Good- Extension (L3) 4- Good- Left Flexion (S2) 4 Good Extension (L3) 4+ Good+ PT-OP-Q Treatments Start: 08/08/23 09:05 Freq: Status: Active Protocol: Document 09/25/23 09:50 AM (Rec: 09/25/23 11:59 AM [id number]) Gym Equipment Shuttle Recovery Uni squats Details LE alignment focus Resistance 25# Shuttle Recovery Platform Stable Reps/Time 2x10 ea [place] squats Details with ball between LE for improved VMO Resistance 50# Shuttle Recovery Platform Stable Reps/Time 2 x15 Therapeutic Exercises Supine Exercises SKTC Supine Exercise Name SKTC Side bilateral Reps/Minutes 2x20 sec ea LE Sahrmann low ab Supine Exercise Name lower abdominal marching Side bilateral Reps/Minutes 2x10 Bent knee fall out Side bilateral Resistance [place] TB Reps/Minutes x10 SAQ Side bilateral Resistance 4# Reps/Minutes 2x10 Bridge Side bilateral Reps/Minutes 2x10 Comments orange nepalese ball under knees Standing Exercises Hip abduction Standing Exercise Name Standing hip abduction Side bilateral Reps/Minutes 2x10 Side step Standing Exercise Name Side step Side bilateral Resistance [place] TB Equipment Used in // bars Reps/Minutes 2x length of // bars ea direction PT-OP-T Assessment and Plan Start: 08/08/23 09:05 Freq: Status: Active Protocol: Document 09/25/23 09:50 AM (Rec: 09/25/23 11:59 AM [id number]) Physical Therapy Assessment Goals Balance Impairment Pt able to SLS for 4 seconds on R and 2 seconds on L Short Term Goal (STG) Pt able to SLS for 10 seconds bilaterally. 09/14/23: Pt progressing towards goal. Pt able to SLS on R LE for 6 seconds and L LE For 7 seconds. STG Duration 09/05/23 Home And Family Living Professor Goal (LTG) Pt able to SLS for 15 seconds bilaterally to demonstrate reduction in fall risk. LTG Duration 10/03/23 Gardening Impairment Pt unable to squat down to garden. Short Term Goal (STG) Pt able to demonstrate 13 STS squats without production of knee pain. 09/14/23: Pt continues to demonstrate pain with repetitive STS squat. STG Duration 09/05/23 Fdc Goal (LTG) Pt able to demonstrate proper squat/kneeling without increase in pain to improve tolerance to gardening tasks. LTG Duration 10/03/23 Shoulder strength Impairment Pt with 3-/5 gross shoulder strength at L shoulder. Short Term Goal (STG) Pt with 3+/5 gross shoulder strength at L shoulder 09/14/23: Pt continues to have weakness at L shoulder. Pt has wanted to focus on R knee at this time. STG Duration 09/05/23 Home And Family Living Professor Goal (LTG) Pt with 4-/5 gross shoulder strength at L shoulder LTG Duration 10/03/23 Shoulder ROM Impairment Pt with limited L shoulder AROM. Short Term Goal (STG) Pt with 10 deg improvement with shoulder flex, abd and ER . 09/13/23: Tx focus has been primarily on LE. Minimal change in L shoulder mobility. STG Duration 09/05/23 Home And Family Living Professor Goal (LTG) Pt with 20 deg improvement with AROM shoulder flex, abd and ER. LTG Duration 10/03/23 Walking Impairment Pt unable to walk a mile without increase in knee/hip pain. Short Term Goal (STG) Pt able to walk 2 miles without increase in knee/hip pain. 08/28: Pt walked 1 mile yesterday w/o KT tape and R knee pain started [facility] through and increased until home. 09/14/23: Pt walked 1.5 miles with minimal increase in pain. STG Duration 09/05/23 Fdc Goal (LTG) Pt able to walk 5 miles without increase in knee/hip pain. LTG Duration 10/03/23 LEFS Impairment Pt with 49/80 LEFS score Fdc Goal (LTG) Pt with 56/80 LEFS score LTG Duration 10/03/23 Assessment Summary Assessment Pt without increase in symptoms with exercises today. Pt required cueing to decrease knee valgus with shuttle recovery exercises. Pt demonstrates improving tolerance to hip strengthening exercises, though report fatigue at glutes. Pt would benefit from continued PT to progress functional mobility as tolerated. Physical Therapy Plan Frequency and Duration Frequency of Treatment 2x/Week Duration of treatment (weeks) 8 Plan of Care Start Date 08/08/23 Plan of Care End Date 10/03/23 Therapeutic Interventions Therapeutic Interventions Balance Training,Gait Training ,Home Exercise Program,Joint Mobilizations,Manual Therapy, Neuromuscular Re-education, Patient/Caregiver Education, Self-Care/Home Management,Soft Tissue Mobilization,Taping, Therapeutic Activities, Therapeutic Exercises Next Visit Focus/Plan Next Note Type Treatment Note Next Visit Plan Progress LE Strengthening, add to UE HEP, trial mini lunge and squat to improve strength for getting off of floor
--- NOTE | 2023-09-28 11:35 | PT.OTN ---
Current Diagnoses Polyosteoarthritis, unspecified (09/28/23) Adhesive capsulitis of left shoulder (09/28/23) Other shoulder lesions, left shoulder (09/28/23) Physical Therapy Treatment Note PT-OP-A Visit Information Start: 08/08/23 09:05 Freq: Status: Active Protocol: Document 09/28/23 11:35 AM (Rec: 09/28/23 17:02 AM [id number]) Out-Patient Physical Therapy Visit Information Visit Information Visit Type Treatment Note Visit Start Time 11:35 Visit Stop Time 12:16 Total Visit Minutes 41 Visit Number 12 PT-OP-B Current Condition Start: 08/08/23 09:05 Freq: Status: Active Protocol: Document 08/15/23 11:37 AM (Rec: 08/15/23 12:49 AM [id number]) Current Condition History of Current Condition Onset Date Chronic Current Complaints L Shoulder mobility, R knee pain, L SIJ pain History of Current Condition Pt reports recent onset of L shoulder stiffness, R knee pain and L SIJ pain. Pt reports that she has been exercising more in the last year. Pt reports that she noticed the knee pain [place] 6 hours at a time. Pt has hx of R meniscus tear. Pt reports that she has pain at L low back. Pt reports difficulty with bending to garden secondary to low back pain. Pt has been taking celebrex and thinks that might be helping. Pt reports that she is typically very active, though now having difficulty ambulating more than 1 mile. Prior Treatments and Tests none PT-OP-C Subjective Start: 08/08/23 09:05 Freq: Status: Active Protocol: Document 09/28/23 11:35 AM (Rec: 09/28/23 17:02 AM [id number]) OP-PT Subjective Patient Comments Patient Comments Pt reports that she continues to feel that her HEP is effective. Pt denies pain with stairs. PT-OP-D Balance Start: 08/08/23 09:05 Freq: Status: Active Protocol: Document 09/14/23 11:33 AM (Rec: 09/14/23 11:44 AM [id number]) Balance Tests Single Limb Standing Single Limb- Right 6 Single Limb- Left 7 PT-OP-E Functional Tests Start: 08/08/23 09:05 Freq: Status: Active Protocol: Document 09/14/23 11:33 AM (Rec: 09/14/23 11:44 AM [id number]) Functional Tests 30 Second Sit to Stand Test Score 9 Comments pain at bilateral patellar tendons PT-OP-G Mobility & Gait Start: 08/08/23 09:05 Freq: Status: Active Protocol: Document 08/08/23 11:36 AM (Rec: 08/08/23 12:57 AM [id number]) OP Gait Assessment Gait Gait Assistance Required: Independent Assistive Devices Assistive Device None Gait Deviations General Gait Pattern Antalgic Factors Limiting Gait Function Factors Limiting Gait Function Decreased Strength,Pain PT-OP-J Posture/Palpation/Skin Start: 08/08/23 09:05 Freq: Status: Active Protocol: Document 08/08/23 11:36 AM (Rec: 08/08/23 12:57 AM [id number]) Palpation Assessment Location L hip Palpation Location L hip Palpation Findings Soft Tissue Tightness, Tenderness Palpation Details L glutes, piriformis are tender to palpation Knee Palpation Location R knee Palpation Findings Tenderness Palpation Details Right medial superior anterior knee (adductors and joint line), lateral anterior infrapatellar pain PT-OP-K Range of Motion Start: 08/08/23 09:05 Freq: Status: Active Protocol: Document 09/14/23 11:33 AM (Rec: 09/14/23 11:40 AM [id number]) Shoulder Goniometric Range of Motion Shoulder Left Flexion 85 Abduction 65 PT-OP-L Special Tests Start: 08/08/23 09:05 Freq: Status: Active Protocol: Document 08/08/23 11:36 AM (Rec: 08/08/23 12:57 AM [id number]) Special Tests Hip Special Tests UMU Test Results + on L PT-OP-M Strength Start: 08/08/23 09:05 Freq: Status: Active Protocol: Document 08/08/23 11:36 AM (Rec: 08/08/23 12:57 AM [id number]) Shoulder Strength Shoulder Manual Muscle Testing Right Flexion 4 Good Abduction (C5) 4 Good External Rotation 4 Good Internal Rotation 4 Good Left Flexion 3- Fair- Abduction (C5) 3- Fair- External Rotation 3- Fair- Internal Rotation 3- Fair- Hip Strength Hip Manual Muscle Testing Right Flexion (L2) 4 Good Abduction 3+ Fair+ Adduction 4 Good External Rotation 3+ Fair+ Internal Rotation 3+ Fair+ Left Flexion (L2) 4 Good Abduction 3+ Fair+ Adduction 4 Good External Rotation 3+ Fair+ Internal Rotation 3+ Fair+ Knee Strength Knee Manual Muscle Testing Right Flexion (S2) 4- Good- Extension (L3) 4- Good- Left Flexion (S2) 4 Good Extension (L3) 4+ Good+ PT-OP-Q Treatments Start: 08/08/23 09:05 Freq: Status: Active Protocol: Document 09/28/23 11:35 AM (Rec: 09/28/23 15:09 AM [id number]) Gym Equipment Shuttle Recovery Uni squats Details LE alignment focus Resistance 25# Shuttle Recovery Platform Stable Reps/Time painful today, unable to do Chago squats Details with ball between LE for improved VMO Resistance 50# Shuttle Recovery Platform Stable Reps/Time 2 x15 Therapeutic Exercises Supine Exercises Bent knee fall out Side bilateral Resistance Storey TB Reps/Minutes 2x10 Bridge Side bilateral Reps/Minutes x10 Sitting Exercises Shoulder kevin Side bilateral Reps/Minutes x1 min Standing Exercises Hip extension Side bilateral Resistance Storey TB Reps/Minutes x10 Standing row Resistance GTB Reps/Minutes x15 Hip abduction Standing Exercise Name Standing hip abduction Side bilateral Resistance Storey TB Reps/Minutes x10 Side step Standing Exercise Name Side step Side bilateral Resistance Storey TB Equipment Used in // bars Reps/Minutes 2x length of // bars ea direction Manual Therapy Treatment Soft Tissue Mobilization R Knee Body Location R quads, adductors and ITB Mobilization Type Rolling Intensity/Depth Moderate Body Position Supine PT-OP-T Assessment and Plan Start: 08/08/23 09:05 Freq: Status: Active Protocol: Document 09/28/23 11:35 AM (Rec: 09/28/23 15:09 AM [id number]) Physical Therapy Assessment Goals Balance Impairment Pt able to SLS for 4 seconds on R and 2 seconds on L Short Term Goal (STG) Pt able to SLS for 10 seconds bilaterally. 09/14/23: Pt progressing towards goal. Pt able to SLS on R LE for 6 seconds and L LE For 7 seconds. STG Duration 09/05/23 Nursing Home Goal (LTG) Pt able to SLS for 15 seconds bilaterally to demonstrate reduction in fall risk. LTG Duration 10/03/23 Gardening Impairment Pt unable to squat down to garden. Short Term Goal (STG) Pt able to demonstrate 13 STS squats without production of knee pain. 09/14/23: Pt continues to demonstrate pain with repetitive STS squat. STG Duration 09/05/23 [employer] Goal (LTG) Pt able to demonstrate proper squat/kneeling without increase in pain to improve tolerance to gardening tasks. LTG Duration 10/03/23 Shoulder strength Impairment Pt with 3-/5 gross shoulder strength at L shoulder. Short Term Goal (STG) Pt with 3+/5 gross shoulder strength at L shoulder 09/14/23: Pt continues to have weakness at L shoulder. Pt has wanted to focus on R knee at this time. STG Duration 09/05/23 Nursing Home Goal (LTG) Pt with 4-/5 gross shoulder strength at L shoulder LTG Duration 10/03/23 Shoulder ROM Impairment Pt with limited L shoulder AROM. Short Term Goal (STG) Pt with 10 deg improvement with shoulder flex, abd and ER . 09/13/23: Tx focus has been primarily on LE. Minimal change in L shoulder mobility. STG Duration 09/05/23 Nursing Home Goal (LTG) Pt with 20 deg improvement with AROM shoulder flex, abd and ER. LTG Duration 10/03/23 Walking Impairment Pt unable to walk a mile without increase in knee/hip pain. Short Term Goal (STG) Pt able to walk 2 miles without increase in knee/hip pain. 08/28: Pt walked 1 mile yesterday w/o KT tape and R knee pain started m[facility]p through and increased until home. 09/14/23: Pt walked 1.5 miles with minimal increase in pain. STG Duration 09/05/23 [employer] Goal (LTG) Pt able to walk 5 miles without increase in knee/hip pain. LTG Duration 10/03/23 LEFS Impairment Pt with 49/80 LEFS score Nursing Home Goal (LTG) Pt with 56/80 LEFS score LTG Duration 10/03/23 Assessment Summary Assessment Pt able to tolerate hip strengthening with addition of resistance today. Pt with discomfort and crepitus at R knee with attempt to do mini- squat at wall. Pt demonstrates improving AAROM L shoulder strength with kevin, though continues to be limited in AROM, secondary to weakness. Pt would benefit from continued PT to progress functional mobility and strength as tolerated. Physical Therapy Plan Frequency and Duration Frequency of Treatment 2x/Week Duration of treatment (weeks) 8 Plan of Care Start Date 08/08/23 Plan of Care End Date 10/03/23 Therapeutic Interventions Therapeutic Interventions Balance Training,Gait Training ,Home Exercise Program,Joint Mobilizations,Manual Therapy, Neuromuscular Re-education, Patient/Caregiver Education, Self-Care/Home Management,Soft Tissue Mobilization,Taping, Therapeutic Activities, Therapeutic Exercises Next Visit Focus/Plan Next Note Type Progress Note Next Visit Plan Progress note and update POC next tx Progress LE Strengthening, add to UE HEP, trial mini lunge and squat to improve strength for getting off of floor
--- NOTE | 2023-10-02 11:34 | PT.OPPOC ---
Physical, Occupational & Speech Therapy At [facility] Current Diagnoses Polyosteoarthritis, unspecified (10/02/23) Adhesive capsulitis of left shoulder (10/02/23) Other shoulder lesions, left shoulder (10/02/23) Visit Care Team Role Provider Type Lex Major MD Attending Provider Physician Family Provider Primary Care Provider Referring Provider Specialty: Internal Medicine Address: [address] [place] [address], [facility] Email: [email or web address] Plan Of Care PT-OP-T Assessment and Plan Start: 08/08/23 09:05 Freq: Status: Active Protocol: Document 10/02/23 11:34 AM (Rec: 10/02/23 12:02 AM [id number]) Physical Therapy Assessment Goals Balance Impairment Pt able to SLS for 4 seconds on R and 2 seconds on L Short Term Goal (STG) Pt able to SLS for 10 seconds bilaterally. 09/14/23: Pt progressing towards goal. Pt able to SLS on R LE for 6 seconds and L LE For 7 seconds. STG Duration 09/05/23 Rebar Fabricator Goal (LTG) Pt able to SLS for 15 seconds bilaterally to demonstrate reduction in fall risk. 10/02/23: Unmet LTG Duration 10/10/23 Gardening Impairment Pt unable to squat down to garden. Short Term Goal (STG) Pt able to demonstrate 13 STS squats without production of knee pain. 09/14/23: Pt continues to demonstrate pain with repetitive STS squat. STG Duration 09/05/23 Rebar Fabricator Goal (LTG) Pt able to demonstrate proper squat/kneeling without increase in pain to improve tolerance to gardening tasks. 10/02/23: Unmet LTG Duration 10/10/23 Shoulder strength Impairment Pt with 3-/5 gross shoulder strength at L shoulder. Short Term Goal (STG) Pt with 3+/5 gross shoulder strength at L shoulder 09/14/23: Pt continues to have weakness at L shoulder. Pt has wanted to focus on R knee at this time. STG Duration 09/05/23 Rebar Fabricator Goal (LTG) Pt with 4-/5 gross shoulder strength at L shoulder LTG Duration 10/10/23 Shoulder ROM Impairment Pt with limited L shoulder AROM. Short Term Goal (STG) Pt with 10 deg improvement with shoulder flex, abd and ER . 09/13/23: Tx focus has been primarily on LE. Minimal change in L shoulder mobility. STG Duration 09/05/23 Rebar Fabricator Goal (LTG) Pt with 20 deg improvement with AROM shoulder flex, abd and ER. 10/02/23: Pt able to hold her L arm in 120 deg of flexion if assisted to the position with kevin. Pt continues to demonstrate limitations in shoulder AROM secondary to strength deficits. LTG Duration 10/10/23 Walking Impairment Pt unable to walk a mile without increase in knee/hip pain. Short Term Goal (STG) Pt able to walk 2 miles without increase in knee/hip pain. 08/28: Pt walked 1 mile yesterday w/o KT tape and R knee pain started half-way through and increased until home. 09/14/23: Pt walked 1.5 miles with minimal increase in pain. STG Duration 09/05/23 Rebar Fabricator Goal (LTG) Pt able to walk 5 miles without increase in knee/hip pain. 10/02/23: pt able to ambulate 1.5 miles at brisk rate. LTG Duration 10/10/23 LEFS Impairment Pt with 49/80 LEFS score Rebar Fabricator Goal (LTG) Pt with 56/80 LEFS score LTG Duration 10/10/23 Assessment Summary Assessment POC updated to accommodate remaining visits. Pt continues to demonstrate improving tolerance to PRE. Pt demonstrates decreased crepitus at R knee with manual cueing to decrease knee valgus with unilateral squat on shuttle. Pt demonstrates improving lumbopelvic control with with exercise. Pt with improved L shoulder AAROM, though continues to demonstrate weakness at L Shoulder, limiting AROM. Pt will return to PT for 2 more visits to continue to progress functional strength and mobility as tolerated. Physical Therapy Plan Frequency and Duration Frequency of Treatment 2x/Week Duration of treatment (weeks) 9 Plan of Care Start Date 08/08/23 Plan of Care End Date 10/10/23 Therapeutic Interventions Therapeutic Interventions Balance Training,Gait Training ,Home Exercise Program,Joint Mobilizations,Manual Therapy, Neuromuscular Re-education, Patient/Caregiver Education, Self-Care/Home Management,Soft Tissue Mobilization,Taping, Therapeutic Activities, Therapeutic Exercises Next Visit Focus/Plan Next Note Type Treatment Note Next Visit Plan Progress LE Strengthening, add to UE HEP, trial mini lunge and squat to improve strength for getting off of floor Plan of Care Dates Plan of Care Start Date 08/08/23 Plan of Care End Date 10/10/23 Electronically Signed by: Kacey Del Valle, PT 10/02/23 0912 If you are in agreement with this Plan of Care, please return a signed and dated copy. I have reviewed this Plan of Care and certify that the skilled therapy services above are required to meet the patient?s needs. Physician Signature Date Printed Name and Credentials Clinical Instructor Signature Printed Name and Credentials
--- NOTE | 2023-10-02 11:34 | PT.OTN ---
Current Diagnoses Polyosteoarthritis, unspecified (10/02/23) Adhesive capsulitis of left shoulder (10/02/23) Other shoulder lesions, left shoulder (10/02/23) Physical Therapy Treatment Note PT-OP-A Visit Information Start: 08/08/23 09:05 Freq: Status: Active Protocol: Document 10/02/23 11:34 AM (Rec: 10/02/23 12:02 AM [id number]) Out-Patient Physical Therapy Visit Information Visit Information Visit Type Progress Note Visit Start Time 11:34 Visit Stop Time 12:18 Total Visit Minutes 44 Visit Number 13 PT-OP-B Current Condition Start: 08/08/23 09:05 Freq: Status: Active Protocol: Document 08/15/23 11:37 AM (Rec: 08/15/23 12:49 AM [id number]) Current Condition History of Current Condition Onset Date Chronic Current Complaints L Shoulder mobility, R knee pain, L SIJ pain History of Current Condition Pt reports recent onset of L shoulder stiffness, R knee pain and L SIJ pain. Pt reports that she has been exercising more in the last year. Pt reports that she noticed the knee pain after [place] the [place] 6 hours at a time. Pt has hx of R meniscus tear. Pt reports that she has pain at L low back. Pt reports difficulty with bending to garden secondary to low back pain. Pt has been taking celebrex and thinks that might be helping. Pt reports that she is typically very active, though now having difficulty ambulating more than 1 mile. Prior Treatments and Tests none PT-OP-C Subjective Start: 08/08/23 09:05 Freq: Status: Active Protocol: Document 10/02/23 11:34 AM (Rec: 10/02/23 17:11 AM [id number]) OP-PT Subjective Patient Comments Patient Comments Pt reports that she continues to feel benefit from her HEP. Pt reports that she was a little sore from overdoing it yesterday. Pt reports that she went for a brisk 1.5 mile with a friend and did extra exercises, which made her sore . PT-OP-D Balance Start: 08/08/23 09:05 Freq: Status: Active Protocol: Document 09/14/23 11:33 AM (Rec: 09/14/23 11:44 AM [id number]) Balance Tests Single Limb Standing Single Limb- Right 6 Single Limb- Left 7 PT-OP-E Functional Tests Start: 08/08/23 09:05 Freq: Status: Active Protocol: Document 09/14/23 11:33 AM (Rec: 09/14/23 11:44 AM [id number]) Functional Tests 30 Second Sit to Stand Test Score 9 Comments pain at bilateral patellar tendons PT-OP-G Mobility & Gait Start: 08/08/23 09:05 Freq: Status: Active Protocol: Document 08/08/23 11:36 AM (Rec: 08/08/23 12:57 AM [id number]) OP Gait Assessment Gait Gait Assistance Required: Independent Assistive Devices Assistive Device None Gait Deviations General Gait Pattern Antalgic Factors Limiting Gait Function Factors Limiting Gait Function Decreased Strength,Pain PT-OP-J Posture/Palpation/Skin Start: 08/08/23 09:05 Freq: Status: Active Protocol: Document 08/08/23 11:36 AM (Rec: 08/08/23 12:57 AM [id number]) Palpation Assessment Location L hip Palpation Location L hip Palpation Findings Soft Tissue Tightness, Tenderness Palpation Details L glutes, piriformis are tender to palpation Knee Palpation Location R knee Palpation Findings Tenderness Palpation Details Right medial superior anterior knee (adductors and joint line), lateral anterior infrapatellar pain PT-OP-K Range of Motion Start: 08/08/23 09:05 Freq: Status: Active Protocol: Document 09/14/23 11:33 AM (Rec: 09/14/23 11:40 AM [id number]) Shoulder Goniometric Range of Motion Shoulder Left Flexion 85 Abduction 65 PT-OP-L Special Tests Start: 08/08/23 09:05 Freq: Status: Active Protocol: Document 08/08/23 11:36 AM (Rec: 08/08/23 12:57 AM [id number]) Special Tests Hip Special Tests UMU Test Results + on L PT-OP-M Strength Start: 08/08/23 09:05 Freq: Status: Active Protocol: Document 08/08/23 11:36 AM (Rec: 08/08/23 12:57 AM [id number]) Shoulder Strength Shoulder Manual Muscle Testing Right Flexion 4 Good Abduction (C5) 4 Good External Rotation 4 Good Internal Rotation 4 Good Left Flexion 3- Fair- Abduction (C5) 3- Fair- External Rotation 3- Fair- Internal Rotation 3- Fair- Hip Strength Hip Manual Muscle Testing Right Flexion (L2) 4 Good Abduction 3+ Fair+ Adduction 4 Good External Rotation 3+ Fair+ Internal Rotation 3+ Fair+ Left Flexion (L2) 4 Good Abduction 3+ Fair+ Adduction 4 Good External Rotation 3+ Fair+ Internal Rotation 3+ Fair+ Knee Strength Knee Manual Muscle Testing Right Flexion (S2) 4- Good- Extension (L3) 4- Good- Left Flexion (S2) 4 Good Extension (L3) 4+ Good+ PT-OP-Q Treatments Start: 08/08/23 09:05 Freq: Status: Active Protocol: Document 10/02/23 11:34 AM (Rec: 10/02/23 12:02 AM [id number]) Therapeutic Exercises Supine Exercises SKTC Supine Exercise Name SKTC Side bilateral Reps/Minutes 2x20 sec ea LE [place]ann low ab Supine Exercise Name lower abdominal marching Side bilateral Reps/Minutes 2x10 Bent knee fall out Side bilateral Resistance [place] TB Reps/Minutes 2x10 Bridge Side bilateral Reps/Minutes x10 Comments orange macanese under knees Sidelying Exercises Clamshell Side bilateral Reps/Minutes x10 Manual Therapy Treatment Manual Techniques L figure 4 stretch Type Chago Reps/Duration 2x30 sec PT-OP-T Assessment and Plan Start: 08/08/23 09:05 Freq: Status: Active Protocol: Document 10/02/23 11:34 AM (Rec: 10/02/23 12:02 AM [id number]) Physical Therapy Assessment Goals Balance Impairment Pt able to SLS for 4 seconds on R and 2 seconds on L Short Term Goal (STG) Pt able to SLS for 10 seconds bilaterally. 09/14/23: Pt progressing towards goal. Pt able to SLS on R LE for 6 seconds and L LE For 7 seconds. STG Duration 09/05/23 Shelter Goal (LTG) Pt able to SLS for 15 seconds bilaterally to demonstrate reduction in fall risk. 10/02/23: Unmet LTG Duration 10/10/23 Gardening Impairment Pt unable to squat down to garden. Short Term Goal (STG) Pt able to demonstrate 13 STS squats without production of knee pain. 09/14/23: Pt continues to demonstrate pain with repetitive STS squat. STG Duration 09/05/23 Flake Drier Goal (LTG) Pt able to demonstrate proper squat/kneeling without increase in pain to improve tolerance to gardening tasks. 10/02/23: Unmet LTG Duration 10/10/23 Shoulder strength Impairment Pt with 3-/5 gross shoulder strength at L shoulder. Short Term Goal (STG) Pt with 3+/5 gross shoulder strength at L shoulder 09/14/23: Pt continues to have weakness at L shoulder. Pt has wanted to focus on R knee at this time. STG Duration 09/05/23 [place] Goal (LTG) Pt with 4-/5 gross shoulder strength at L shoulder LTG Duration 10/10/23 Shoulder ROM Impairment Pt with limited L shoulder AROM. Short Term Goal (STG) Pt with 10 deg improvement with shoulder flex, abd and ER . 09/13/23: Tx focus has been primarily on LE. Minimal change in L shoulder mobility. STG Duration 09/05/23 Shelter Goal (LTG) Pt with 20 deg improvement with AROM shoulder flex, abd and ER. 10/02/23: Pt able to hold her L arm in 120 deg of flexion if assisted to the position with kevin. Pt continues to demonstrate limitations in shoulder AROM secondary to strength deficits. LTG Duration 10/10/23 Walking Impairment Pt unable to walk a mile without increase in knee/hip pain. Short Term Goal (STG) Pt able to walk 2 miles without increase in knee/hip pain. 08/28: Pt walked 1 mile yesterday w/o KT tape and R knee pain started intermediate through and increased until home. 09/14/23: Pt walked 1.5 miles with minimal increase in pain. STG Duration 09/05/23 Shelter Goal (LTG) Pt able to walk 5 miles without increase in knee/hip pain. 10/02/23: pt able to ambulate 1.5 miles at brisk rate. LTG Duration 10/10/23 LEFS Impairment Pt with 49/80 LEFS score [place] Goal (LTG) Pt with 56/80 LEFS score LTG Duration 10/10/23 Assessment Summary Assessment POC updated to accommodate remaining visits. Pt continues to demonstrate improving tolerance to PRE. Pt demonstrates decreased crepitus at R knee with manual cueing to decrease knee valgus with unilateral squat on shuttle. Pt demonstrates improving lumbopelvic control with with exercise. Pt with improved L shoulder AAROM, though continues to demonstrate weakness at L Shoulder, limiting AROM. Pt will return to PT for 2 more visits to continue to progress functional strength and mobility as tolerated. Physical Therapy Plan Frequency and Duration Frequency of Treatment 2x/Week Duration of treatment (weeks) 9 Plan of Care Start Date 08/08/23 Plan of Care End Date 10/10/23 Therapeutic Interventions Therapeutic Interventions Balance Training,Gait Training ,Home Exercise Program,Joint Mobilizations,Manual Therapy, Neuromuscular Re-education, Patient/Caregiver Education, Self-Care/Home Management,Soft Tissue Mobilization,Taping, Therapeutic Activities, Therapeutic Exercises Next Visit Focus/Plan Next Note Type Treatment Note Next Visit Plan Progress LE Strengthening, add to UE HEP, trial mini lunge and squat to improve strength for getting off of floor
--- NOTE | 2023-10-05 11:30 | PT.OTN ---
Current Diagnoses Polyosteoarthritis, unspecified (10/05/23) Adhesive capsulitis of left shoulder (10/05/23) Other shoulder lesions, left shoulder (10/05/23) Physical Therapy Treatment Note PT-OP-A Visit Information Start: 08/08/23 09:05 Freq: Status: Active Protocol: Document 10/05/23 11:30 AM (Rec: 10/05/23 13:29 AM [id number]) Out-Patient Physical Therapy Visit Information Visit Information Visit Type Treatment Note Visit Start Time 11:30 Visit Stop Time 12:15 Total Visit Minutes 45 Visit Number 14 PT-OP-B Current Condition Start: 08/08/23 09:05 Freq: Status: Active Protocol: Document 08/15/23 11:37 AM (Rec: 08/15/23 12:49 AM [id number]) Current Condition History of Current Condition Onset Date Chronic Current Complaints L Shoulder mobility, R knee pain, L SIJ pain History of Current Condition Pt reports recent onset of L shoulder stiffness, R knee pain and L SIJ pain. Pt reports that she has been exercising more in the last year. Pt reports that she noticed the knee pain [place] 6 hours at a time. Pt has hx of R meniscus tear. Pt reports that she has pain at L low back. Pt reports difficulty with bending to garden secondary to low back pain. Pt has been taking celebrex and thinks that might be helping. Pt reports that she is typically very active, though now having difficulty ambulating more than 1 mile. Prior Treatments and Tests none PT-OP-C Subjective Start: 08/08/23 09:05 Freq: Status: Active Protocol: Document 10/05/23 11:30 AM (Rec: 10/05/23 13:29 AM [id number]) OP-PT Subjective Patient Comments Patient Comments Pt reports that she continues to take ibuprofen 1x/day. Pt reports that she typically feels better when she is consistent with her HEP. PT-OP-D Balance Start: 08/08/23 09:05 Freq: Status: Active Protocol: Document 09/14/23 11:33 AM (Rec: 09/14/23 11:44 AM [id number]) Balance Tests Single Limb Standing Single Limb- Right 6 Single Limb- Left 7 PT-OP-E Functional Tests Start: 08/08/23 09:05 Freq: Status: Active Protocol: Document 09/14/23 11:33 AM (Rec: 09/14/23 11:44 AM [id number]) Functional Tests 30 Second Sit to Stand Test Score 9 Comments pain at bilateral patellar tendons PT-OP-G Mobility & Gait Start: 08/08/23 09:05 Freq: Status: Active Protocol: Document 08/08/23 11:36 AM (Rec: 08/08/23 12:57 AM [id number]) OP Gait Assessment Gait Gait Assistance Required: Independent Assistive Devices Assistive Device None Gait Deviations General Gait Pattern Antalgic Factors Limiting Gait Function Factors Limiting Gait Function Decreased Strength,Pain PT-OP-J Posture/Palpation/Skin Start: 08/08/23 09:05 Freq: Status: Active Protocol: Document 08/08/23 11:36 AM (Rec: 08/08/23 12:57 AM [id number]) Palpation Assessment Location L hip Palpation Location L hip Palpation Findings Soft Tissue Tightness, Tenderness Palpation Details L glutes, piriformis are tender to palpation Knee Palpation Location R knee Palpation Findings Tenderness Palpation Details Right medial superior anterior knee (adductors and joint line), lateral anterior infrapatellar pain PT-OP-K Range of Motion Start: 08/08/23 09:05 Freq: Status: Active Protocol: Document 09/14/23 11:33 AM (Rec: 09/14/23 11:40 AM [id number]) Shoulder Goniometric Range of Motion Shoulder Left Flexion 85 Abduction 65 PT-OP-L Special Tests Start: 08/08/23 09:05 Freq: Status: Active Protocol: Document 08/08/23 11:36 AM (Rec: 08/08/23 12:57 AM [id number]) Special Tests Hip Special Tests UMU Test Results + on L PT-OP-M Strength Start: 08/08/23 09:05 Freq: Status: Active Protocol: Document 08/08/23 11:36 AM (Rec: 08/08/23 12:57 AM [id number]) Shoulder Strength Shoulder Manual Muscle Testing Right Flexion 4 Good Abduction (C5) 4 Good External Rotation 4 Good Internal Rotation 4 Good Left Flexion 3- Fair- Abduction (C5) 3- Fair- External Rotation 3- Fair- Internal Rotation 3- Fair- Hip Strength Hip Manual Muscle Testing Right Flexion (L2) 4 Good Abduction 3+ Fair+ Adduction 4 Good External Rotation 3+ Fair+ Internal Rotation 3+ Fair+ Left Flexion (L2) 4 Good Abduction 3+ Fair+ Adduction 4 Good External Rotation 3+ Fair+ Internal Rotation 3+ Fair+ Knee Strength Knee Manual Muscle Testing Right Flexion (S2) 4- Good- Extension (L3) 4- Good- Left Flexion (S2) 4 Good Extension (L3) 4+ Good+ PT-OP-Q Treatments Start: 08/08/23 09:05 Freq: Status: Active Protocol: Document 10/05/23 11:30 AM (Rec: 10/05/23 13:29 AM [id number]) Gym Equipment Shuttle Recovery Uni squats Details LE alignment focus Resistance 25# Shuttle Recovery Platform Stable Reps/Time 2x15 [place] squats Details with ball between LE for improved VMO Resistance 50# Shuttle Recovery Platform Stable Reps/Time 2 x15 Therapeutic Exercises Supine Exercises SKTC Supine Exercise Name SKTC Side bilateral Reps/Minutes x30 sec ea LE [place] low ab Supine Exercise Name lower abdominal marching Side bilateral Reps/Minutes 2x10 Bent knee fall out Side bilateral Resistance OTB Reps/Minutes 2x10 SAQ Side bilateral Resistance 4# Reps/Minutes 2x10 Bridge Side bilateral Reps/Minutes x10 Comments orange [place] under knees Sitting Exercises Shoulder kevin Side bilateral Equipment Used kevin Reps/Minutes x2 min PT-OP-T Assessment and Plan Start: 08/08/23 09:05 Freq: Status: Active Protocol: Document 10/05/23 11:30 AM (Rec: 10/05/23 13:29 AM [id number]) Physical Therapy Assessment Goals Balance Impairment Pt able to SLS for 4 seconds on R and 2 seconds on L Short Term Goal (STG) Pt able to SLS for 10 seconds bilaterally. 09/14/23: Pt progressing towards goal. Pt able to SLS on R LE for 6 seconds and L LE For 7 seconds. STG Duration 09/05/23 Supervisor Pile Driving Goal (LTG) Pt able to SLS for 15 seconds bilaterally to demonstrate reduction in fall risk. 10/02/23: Unmet LTG Duration 10/10/23 Gardening Impairment Pt unable to squat down to garden. Short Term Goal (STG) Pt able to demonstrate 13 STS squats without production of knee pain. 09/14/23: Pt continues to demonstrate pain with repetitive STS squat. STG Duration 09/05/23 Snf Goal (LTG) Pt able to demonstrate proper squat/kneeling without increase in pain to improve tolerance to gardening tasks. 10/02/23: Unmet LTG Duration 10/10/23 Shoulder strength Impairment Pt with 3-/5 gross shoulder strength at L shoulder. Short Term Goal (STG) Pt with 3+/5 gross shoulder strength at L shoulder 09/14/23: Pt continues to have weakness at L shoulder. Pt has wanted to focus on R knee at this time. STG Duration 09/05/23 Snf Goal (LTG) Pt with 4-/5 gross shoulder strength at L shoulder LTG Duration 10/10/23 Shoulder ROM Impairment Pt with limited L shoulder AROM. Short Term Goal (STG) Pt with 10 deg improvement with shoulder flex, abd and ER . 09/13/23: Tx focus has been primarily on LE. Minimal change in L shoulder mobility. STG Duration 09/05/23 Snf Goal (LTG) Pt with 20 deg improvement with AROM shoulder flex, abd and ER. 10/02/23: Pt able to hold her L arm in 120 deg of flexion if assisted to the position with kevin. Pt continues to demonstrate limitations in shoulder AROM secondary to strength deficits. LTG Duration 10/10/23 Walking Impairment Pt unable to walk a mile without increase in knee/hip pain. Short Term Goal (STG) Pt able to walk 2 miles without increase in knee/hip pain. 08/28: Pt walked 1 mile yesterday w/o KT tape and R knee pain started retirement through and increased until home. 09/14/23: Pt walked 1.5 miles with minimal increase in pain. STG Duration 09/05/23 Snf Goal (LTG) Pt able to walk 5 miles without increase in knee/hip pain. 10/02/23: pt able to ambulate 1.5 miles at brisk rate. LTG Duration 10/10/23 LEFS Impairment Pt with 49/80 LEFS score Snf Goal (LTG) Pt with 56/80 LEFS score LTG Duration 10/10/23 Assessment Summary Assessment Pt tolerated PRE well today. Pt able to decrease crepitus with alignment modifications on the shuttle. Pt continues to be challenged with CKC strengthening, including STS squats secondary to R knee valgus stress and femoral MR. Pt demonstrates improving L shoulder mobility with AAROM exercises. Pt will return to PT next week for 1 last visit to reassess and finalize HEP. Physical Therapy Plan Frequency and Duration Frequency of Treatment 2x/Week Duration of treatment (weeks) 9 Plan of Care Start Date 08/08/23 Plan of Care End Date 10/10/23 Therapeutic Interventions Therapeutic Interventions Balance Training,Gait Training ,Home Exercise Program,Joint Mobilizations,Manual Therapy, Neuromuscular Re-education, Patient/Caregiver Education, Self-Care/Home Management,Soft Tissue Mobilization,Taping, Therapeutic Activities, Therapeutic Exercises Next Visit Focus/Plan Next Note Type Discharge Summary Next Visit Plan reassess STS, finalize HEP
--- NOTE | 2023-10-09 10:35 | PT.OTN ---
Current Diagnoses Polyosteoarthritis, unspecified (10/09/23) Adhesive capsulitis of left shoulder (10/09/23) Other shoulder lesions, left shoulder (10/09/23) Physical Therapy Treatment Note PT-OP-A Visit Information Start: 08/08/23 09:05 Freq: Status: Active Protocol: Document 10/09/23 10:35 AM (Rec: 10/09/23 11:29 AM [id number]) Out-Patient Physical Therapy Visit Information Visit Information Visit Type Discharge Summary Visit Start Time 10:35 Visit Stop Time 11:16 Total Visit Minutes 41 Visit Number 15 PT-OP-B Current Condition Start: 08/08/23 09:05 Freq: Status: Active Protocol: Document 08/15/23 11:37 AM (Rec: 08/15/23 12:49 AM [id number]) Current Condition History of Current Condition Onset Date Chronic Current Complaints L Shoulder mobility, R knee pain, L SIJ pain History of Current Condition Pt reports recent onset of L shoulder stiffness, R knee pain and L SIJ pain. Pt reports that she has been exercising more in the last year. Pt reports that she noticed the knee pain after standing at the art [place] 6 hours at a time. Pt has hx of R meniscus tear. Pt reports that she has pain at L low back. Pt reports difficulty with bending to garden secondary to low back pain. Pt has been taking celebrex and thinks that might be helping. Pt reports that she is typically very active, though now having difficulty ambulating more than 1 mile. Prior Treatments and Tests none PT-OP-C Subjective Start: 08/08/23 09:05 Freq: Status: Active Protocol: Document 10/09/23 10:35 AM (Rec: 10/09/23 11:29 AM [id number]) OP-PT Subjective Patient Comments Patient Comments Pt reports that she walked 2.5 miles then later walked another 1.5 miles with a friend. Pt reports that she was sore following. Pt reports that she took some ibu, rested and then did her exercises which helped per pt report. PT-OP-D Balance Start: 08/08/23 09:05 Freq: Status: Active Protocol: Document 10/09/23 10:35 AM (Rec: 10/09/23 11:29 AM [id number]) Balance Tests Single Limb Standing Single Limb- Right 15 Single Limb- Left 15 PT-OP-E Functional Tests Start: 08/08/23 09:05 Freq: Status: Active Protocol: Document 10/09/23 10:35 AM (Rec: 10/09/23 11:29 AM [id number]) Functional Tests 30 Second Sit to Stand Test Score 10 Comments marrero chair PT-OP-G Mobility & Gait Start: 08/08/23 09:05 Freq: Status: Active Protocol: Document 08/08/23 11:36 AM (Rec: 08/08/23 12:57 AM [id number]) OP Gait Assessment Gait Gait Assistance Required: Independent Assistive Devices Assistive Device None Gait Deviations General Gait Pattern Antalgic Factors Limiting Gait Function Factors Limiting Gait Function Decreased Strength,Pain PT-OP-J Posture/Palpation/Skin Start: 08/08/23 09:05 Freq: Status: Active Protocol: Document 08/08/23 11:36 AM (Rec: 08/08/23 12:57 AM [id number]) Palpation Assessment Location L hip Palpation Location L hip Palpation Findings Soft Tissue Tightness, Tenderness Palpation Details L glutes, piriformis are tender to palpation Knee Palpation Location R knee Palpation Findings Tenderness Palpation Details Right medial superior anterior knee (adductors and joint line), lateral anterior infrapatellar pain PT-OP-K Range of Motion Start: 08/08/23 09:05 Freq: Status: Active Protocol: Document 10/09/23 10:35 AM (Rec: 10/09/23 11:29 AM [id number]) Shoulder Goniometric Range of Motion Shoulder Left Flexion 90 Abduction 70 Internal Rotation Behind Back (text) cervical spine Comments ER Aply T4 PT-OP-L Special Tests Start: 08/08/23 09:05 Freq: Status: Active Protocol: Document 08/08/23 11:36 AM (Rec: 08/08/23 12:57 AM [id number]) Special Tests Hip Special Tests UMU Test Results + on L PT-OP-M Strength Start: 08/08/23 09:05 Freq: Status: Active Protocol: Document 08/08/23 11:36 AM (Rec: 08/08/23 12:57 AM [id number]) Shoulder Strength Shoulder Manual Muscle Testing Right Flexion 4 Good Abduction (C5) 4 Good External Rotation 4 Good Internal Rotation 4 Good Left Flexion 3- Fair- Abduction (C5) 3- Fair- External Rotation 3- Fair- Internal Rotation 3- Fair- Hip Strength Hip Manual Muscle Testing Right Flexion (L2) 4 Good Abduction 3+ Fair+ Adduction 4 Good External Rotation 3+ Fair+ Internal Rotation 3+ Fair+ Left Flexion (L2) 4 Good Abduction 3+ Fair+ Adduction 4 Good External Rotation 3+ Fair+ Internal Rotation 3+ Fair+ Knee Strength Knee Manual Muscle Testing Right Flexion (S2) 4- Good- Extension (L3) 4- Good- Left Flexion (S2) 4 Good Extension (L3) 4+ Good+ PT-OP-Q Treatments Start: 08/08/23 09:05 Freq: Status: Active Protocol: Document 10/09/23 10:35 AM (Rec: 10/09/23 11:29 AM [id number]) Therapeutic Exercises Supine Exercises Bent knee fall out Side bilateral Resistance OTB Reps/Minutes 2x10 SLR Reps/Minutes x10 Sidelying Exercises Clamshell Side bilateral Reps/Minutes x10 Comments cues for TA stab resolved L SIJ pain. Standing Exercises Hip extension Side bilateral Resistance [place] TB Hip abduction Side bilateral Resistance [place] TB Reps/Minutes x10 PT-OP-T Assessment and Plan Start: 08/08/23 09:05 Freq: Status: Active Protocol: Document 10/09/23 10:35 AM (Rec: 10/09/23 11:29 AM [id number]) Physical Therapy Assessment Goals Balance Impairment Pt able to SLS for 4 seconds on R and 2 seconds on L Short Term Goal (STG) Pt able to SLS for 10 seconds bilaterally. 09/14/23: Pt progressing towards goal. Pt able to SLS on R LE for 6 seconds and L LE For 7 seconds. STG Duration 09/05/23 Intermediate Goal (LTG) Pt able to SLS for 15 seconds bilaterally to demonstrate reduction in fall risk. 10/02/23: Unmet 10/09/23: Goal met. Pt able to stand on arianne LE for 15 seconds LTG Duration 10/10/23 Gardening Impairment Pt unable to squat down to garden. Short Term Goal (STG) Pt able to demonstrate 13 STS squats without production of knee pain. 09/14/23: Pt continues to demonstrate pain with repetitive STS squat. STG Duration 09/05/23 Intermediate Goal (LTG) Pt able to demonstrate proper squat/kneeling without increase in pain to improve tolerance to gardening tasks. 10/02/23: Unmet 10/09/23: Pt reports that she is able to get on and off of the floor with help from a coffee table. Pt able to do 10 STS Squats in 30 seconds. Pt did not want to demonstrate getting on and off of floor during tx session. LTG Duration 10/10/23 Shoulder strength Impairment Pt with 3-/5 gross shoulder strength at L shoulder. Short Term Goal (STG) Pt with 3+/5 gross shoulder strength at L shoulder 09/14/23: Pt continues to have weakness at L shoulder. Pt has wanted to focus on R knee at this time. STG Duration 09/05/23 Yarn Man Goal (LTG) Pt with 4-/5 gross shoulder strength at L shoulder Unmet on 10/09/23: Primary focus has been on LE strengthening as this is has been more important per pt. LTG Duration 10/10/23 Shoulder ROM Impairment Pt with limited L shoulder AROM. Short Term Goal (STG) Pt with 10 deg improvement with shoulder flex, abd and ER . 09/13/23: Tx focus has been primarily on LE. Minimal change in L shoulder mobility. STG Duration 09/05/23 Yarn Man Goal (LTG) Pt with 20 deg improvement with AROM shoulder flex, abd and ER. 10/02/23: Pt able to hold her L arm in 120 deg of flexion if assisted to the position with kevin. Pt continues to demonstrate limitations in shoulder AROM secondary to strength deficits. LTG Duration 10/10/23 Walking Impairment Pt unable to walk a mile without increase in knee/hip pain. Short Term Goal (STG) Pt able to walk 2 miles without increase in knee/hip pain. 08/28: Pt walked 1 mile yesterday w/o KT tape and R knee pain started [facility] through and increased until home. 09/14/23: Pt walked 1.5 miles with minimal increase in pain. STG Duration 09/05/23 Yarn Man Goal (LTG) Pt able to walk 5 miles without increase in knee/hip pain. 10/02/23: pt able to ambulate 1.5 miles at brisk rate. 10/09/23: Pt able to walk 2.5 mile, then 1.5 mile in one day . Pt reports feeling stiff and sore at knee following though improved with rest. LTG Duration 10/10/23 LEFS Impairment Pt with 49/80 LEFS score Yarn Man Goal (LTG) Pt with 56/80 LEFS score 10/09/23: Goal met with score of 59/80 LTG Duration 10/10/23 Progress Towards Goals Progress Towards Goals Progressing Toward Goals Assessment Summary Assessment Pt met or demonstrated good progress towards all goals. Pt demonstrates good understanding of HEP and has demonstrated excellent compliance. Pt able to increase walking distance from unable to walk 1 mile to being able to walk 4+ miles in a day. Pt continues to demonstrate L shoulder dysfunction, though pt wanted to primarily focus on arianne lE with this POC. Pt agreeable to d/c today. Physical Therapy Plan Frequency and Duration Frequency of Treatment 2x/Week Duration of treatment (weeks) 9 Plan of Care Start Date 08/08/23 Plan of Care End Date 10/10/23 Therapeutic Interventions Therapeutic Interventions Balance Training,Gait Training ,Home Exercise Program,Joint Mobilizations,Manual Therapy, Neuromuscular Re-education, Patient/Caregiver Education, Self-Care/Home Management,Soft Tissue Mobilization,Taping, Therapeutic Activities, Therapeutic Exercises Discharge Physical Therapy Discharge Reasons Goals Met Discharge Comments Pt attended 15 PT sessions. Pt demonstrates good understanding of HEP and has demonstrated excellent compliance. Pt with improved balance and functional mobility since start of care. Pt agreeable to d/c today. Next Visit Focus/Plan Next Note Type Discharge Summary
== END 2023-10-10 10:36 | disposition home or self-care (01) ==
LOC: PHYS 10:30
PROVIDERS: Family Provider Internal Medicine; PCP Internal Medicine; Referring Provider Internal Medicine; Visit Provider Internal Medicine
DX: M15.9 Polyosteoarthritis, unspecified (principal); M75.82 Other shoulder lesions, left shoulder; M75.02 Adhesive capsulitis of left shoulder
CPT/HCPCS: 97110; 97116; 97140; 97162; 97535

== ENCOUNTER → 2023-10-24 10:15 | Outpatient (CLI) | payer MEDICARE, SELFPAY ==
[2023-10-24 11:50] LABS: BUN Creatinine Ratio 41.9 (6-22); Blood Urea Nitrogen 26 mg/dL (7-17); Calcium 9.4 mg/dL (8.4-10.2); Carbon Dioxide 26 mmol/L (22-32); Chloride 105 mmol/L (98-107); Cholesterol 243 mg/dL (140-199); Estimated Glomerular Filt Rate > 60 mL/min (>60); Glucose 108 mg/dL (80-110); HDL Cholesterol 76 mg/dL (40-60); HEMOLYSIS < 15 (0-50); LDL Cholesterol Calculated 153 mg/dL (<100); Potassium 4.5 mmol/L (3.4-5.1); Sodium 138 mmol/L (137-145); Triglycerides 71 mg/dL (35-150)
[2023-10-24 12:22] LABS: TSH w/ Reflex to FT4 0.58 uIU/mL (0.47-4.68)
== END ==
PROVIDERS: Family Provider Internal Medicine; PCP Internal Medicine; Referring Provider Internal Medicine; Visit Provider Internal Medicine
DX: E78.2 Mixed hyperlipidemia (principal); E03.9 Hypothyroidism, unspecified; I47.10 Supraventricular tachycardia, unspecified
CPT/HCPCS: 36415; 80048; 80061; 84443

== ENCOUNTER → 2024-06-29 11:31 | Outpatient (CLI) | payer MEDICARE, SELFPAY | PROVIDERS: Family Provider Internal Medicine; PCP Internal Medicine; Visit Provider Registered Nurse | DX: R10.9 Unspecified abdominal pain (principal) | CPT/HCPCS: 87086 ==

== ENCOUNTER → 2024-07-02 11:51 | Outpatient (CLI) | payer MEDICARE, SELFPAY | PROVIDERS: Family Provider Internal Medicine; PCP Internal Medicine; Referring Provider Nurse Practitioner Family; Visit Provider Nurse Practitioner Family | DX: R35.0 Frequency of micturition (principal) | CPT/HCPCS: 87086 ==

== ENCOUNTER → 2024-10-20 10:40 | Outpatient (CLI) | payer MEDICARE, SELFPAY ==
[2024-10-20 11:24] LABS: Hematocrit 42.7 % (36-46); Hemoglobin 14.4 g/dL (12.0-16.0); Mean Corpuscular HGB Conc 33.8 % (30-36); Mean Corpuscular Volume 94.7 fL (80-100); Platelet Count 254 X10^3/uL (150-400); Red Cell Distribution Width 13.3 % (11.6-14.8); White Blood Cell Count 4.9 X10^3/uL (4.5-11.0)
[2024-10-20 11:55] LABS: BUN Creatinine Ratio 34.7 (6-22); Blood Urea Nitrogen 25 mg/dL (7-17); Calcium 9.3 mg/dL (8.4-10.2); Carbon Dioxide 25 mmol/L (22-32); Chloride 107 mmol/L (98-107); Cholesterol 245 mg/dL (140-199); Estimated Glomerular Filt Rate > 60 mL/min (>60); Glucose 111 mg/dL (80-110); HDL Cholesterol 102 mg/dL (40-60); HEMOLYSIS < 15 (0-50); LDL Cholesterol Calculated 121 mg/dL (<100); Potassium 4.6 mmol/L (3.4-5.1); Sodium 136 mmol/L (137-145); Triglycerides 108 mg/dL (35-150)
== END ==
PROVIDERS: Family Provider Internal Medicine; PCP Internal Medicine; Referring Provider Internal Medicine; Visit Provider Internal Medicine
DX: E78.2 Mixed hyperlipidemia (principal); E03.9 Hypothyroidism, unspecified; I47.10 Supraventricular tachycardia, unspecified
CPT/HCPCS: 36415; 80048; 80061; 84443; 85027

== ENCOUNTER 2024-12-21 10:57 | Inpatient (IN) | payer MEDICARE, SELFPAY ==
[2024-12-21] VITALS (30 sets, daily range): BP systolic 95–173; BP diastolic 60–114; PULSE 77–153; RESP 11–23; TEMP 36.2–37.3; O2SAT 90–100; BMI 16.1
--- NOTE | 2024-12-21 11:43 | PC.NURSE ---
patient came in to the ED with her high school friend. Pt complains of right leg pain and left hip pain. She's had this pain for 20 years off and on but it has been worse for the last 4 months. Both of her arms have been bothering her since she was in high school and has some limited range of motion in her right shoulder also since high school. During transport from triage to fast track, the pt family friend notified the triage nurse of concerns that the pt had a mini stroke but did not want to elaborate in front of her friend. During the assessment the pt friend expressed details about her concerns for the mini stroke. Approx 1 week ago the friend noticed that the pt had a 3 day period where she was repeating herself and had an abnormal gait (mini steps). She denied dizziness or being off balance. The pt smile and expressions are symmetrical. Her speech is clear and coherant today. Pupils PERRLA. She denies weakness and is stating her only complaint is chronic pain. She also expresses concern for the amount of Nsaids she's been taking. She denies nausea, vomiting or black tarry stools and is not short of breathe. He skin is warm, pink, and dry. Provider was notified of findings.
--- NOTE | 2024-12-21 12:25 | EKG_ITS ---
[facility] [address] [place] [id number] Test Date: 2024-12-21 Pat Name: Michelle Christian Department: [facility] Room: Gender: Female It Project Lead: PRATIBHA : 1940 Requested By: Order Number: [id number] Reading MD: Patrick Yen Measurements Intervals Myton Rate: 151 P: DC: QRS: 61 QRSD: 88 T: -47 QT: 286 QTc: 453 Interpretive Statements Critical Test Result: High HR Atrial fibrillation with rapid ventricular response with premature ventricular or aberrantly conducted complexes Possible Anterior infarct , age undetermined Electronically Signed On 12-24-2024 23:43:28 PST by Patrick Yen
--- NOTE | 2024-12-21 12:34 | DI.CT.S_ITS ---
PROCEDURE: CT ANGIO HEAD AND NECK INDICATIONS: Previous neuro deficits TECHNIQUE: After the administration of intravenous contrast, 1 mm thick sections acquired from the aortic arch through the [place] of [place]. 3-dimensional lcnvsxg-ibvjmphsi-escavsdpkx (MIP) and/or volume rendering reformats were acquired of the central intracranial vasculature and neck separately. For radiation dose reduction, the following was used: automated exposure control, adjustment of mA and/or kV according to patient size. COMPARISON: None. FINDINGS: Cerebral CT Angiogram: Internal carotid arteries: No acute findings. Intracranial ICA are patent with no significant stenosis. No occlusion. No aneurysm. Anterior cerebral arteries: Unremarkable. No significant stenosis. No occlusion. No aneurysm. Middle cerebral arteries: Unremarkable. No significant stenosis. No occlusion. No aneurysm. 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 The P2 segment is supplied by a widely patent posterior communicating artery. Remainder of the distal vasculature unremarkable. Basilar artery: Unremarkable. No significant stenosis. No occlusion. No aneurysm. Vertebral arteries: Unremarkable as visualized. Dural venous sinuses: Unremarkable given phase of enhancement. Other: Arterial phase brain parenchyma is unremarkable. Neck CT Angiogram: Internal carotid arteries: Unremarkable. No significant stenosis. No dissection or occlusion. Common carotid arteries: Unremarkable. No significant stenosis. No dissection or occlusion. External carotid arteries: Unremarkable. No occlusion. Vertebral arteries: Unremarkable. No significant stenosis. No dissection or occlusion. Other: None. Aortic Arch and Mediastinum: Partially visualized aortic arch unremarkable without evidence of aneurysm. Origins of the great vessels unremarkable. IMPRESSION: Unremarkable. No large vessel occlusion, aneurysm or vascular malformation. No significant stenosis. Approved by: Teo Alfonso M.D. on 12/21/2024 at 12:43
--- NOTE | 2024-12-21 12:34 | DI.RAD.S_ITS ---
PROCEDURE: XR CHEST 2V INDICATIONS: chest pain TECHNIQUE: 2 views of the chest were acquired. COMPARISON: None. FINDINGS: Surgical changes and devices: None. Lungs and pleura: Lungs are clear. No pleural effusions or pneumothorax. Mediastinum: Mediastinal contours are normal. Heart size is enlarged. Bones and chest wall: No suspicious bony abnormalities. Soft tissues appear unremarkable. IMPRESSION: Cardiomegaly. No acute cardiopulmonary findings Approved by: Teo Alfonso M.D. on 12/21/2024 at 12:29
--- NOTE | 2024-12-21 12:36 | DI.RAD.S_ITS ---
PROCEDURE: XR HIP W PEL IF DONE BILAT 2V INDICATIONS: right hip pain TECHNIQUE: 3 views of the hip were acquired. COMPARISON: [facility], CR, XR HIP W PEL IF DONE LT 2V, 07/17/2023, 11:20. FINDINGS: Bones: No fractures or dislocations. No suspicious bony lesions. The visualized pelvic ring appears intact. Soft tissues: No suspicious soft tissue calcifications or masses. IMPRESSION: Mild degenerative changes. No change from the prior exam. No fracture. Approved by: Teo Alfonso M.D. on 12/21/2024 at 12:41
--- NOTE | 2024-12-21 12:37 | ED_ITS ---
HPI - Extremity Problem <ANTHONY Heath - Last Filed: 12/21/24 12:49> General Chief complaint: Extremity Problem,Nontraumatic Stated complaint: left hip and right knee pain- took lots of NSAIDS Time Seen by Provider: 12/21/24 11:36 Source: patient Mode of arrival: Wheelchair History of Present Illness HPI Narrative: 84-year-old female, never smoker, presents to the emergency department with right hip pain x2 years. Patient states that she was able to walk 6 miles every day up until 2 years ago when she started developing right hip pain. Patient states the right hip pain is continuous at this point regardless of sitting, standing or walking. Patient also notes that her left knee has been hurting as well. Patient denies any numbness and tingling of lower extremities. Patient uses walking sticks when she does walk to prevent any falls. Patient does endorse a familial history of arthritis. Patient has been using 1600 mg of NSAIDs daily and believes this is too much. Patient would like to have something to prevent her from waking up in the middle of the night in pain. Patient friend is at bedside and reports concerns over stroke-like symptoms that occurred one-week ago lasting for approximately 3 days. Patient's friend states that her voice sounded strange on the phone and when she spent several days with her afterwards, found that the patient was having difficulty forming words and was not completely cognitively there. Patient reports a familial history of strokes in her family although all members lived into their 80s and 90s. During assessment patient started to complain of midsternal chest pain. Related Data Home Medications Medication Instructions Recorded Confirmed diclofenac sodium 1 % topical gel 4 g topical QID 05/19/24 10/29/24 naproxen sodium 220 mg tablet 440 mg PO DAILY 05/19/24 10/29/24 (Aleve) Previous Rx's Medication Instructions Recorded Biest/progesterone 6.25/50mg/gm 0.5 g topical DAILY #45 grams 09/26/24 levothyroxine 88 mcg tablet 88 mcg PO DAILY #90 tabs 11/21/24 diazepam 5 mg tablet 5 mg PO BID PRN palpitations #90 12/01/24 tabs Allergies Allergy/AdvReac Type Severity Reaction Status Date / Time codeine AdvReac Severe Vomiting Verified 10/29/24 11:27 Opioids - Morphine Analogues AdvReac Vomiting Verified 10/29/24 11:27 Review of Systems <PRAVEENA HeathP - Last Filed: 12/21/24 12:49> Review of Systems Narrative: Narrative: See HPI. GENERAL: Denies chills, fatigue, fever, sweats. HEENT: Denies sinus pain, ear pain, sore throat, difficulty swallowing, dizziness. RESPIRATORY: Denies dyspnea, cough, wheezing, sputum. CARDIOVASCULAR: Denies palpitations, edema. Endorses midsternal chest pain. GASTROINTESTINAL: Denies nausea, vomiting, abdominal pain, diarrhea, constipation. : Denies dysuria, frequency, incontinence, hematuria, urinary retention, flank pain. MSK: Denies weakness. Endorses right hip pain. SKIN: Denies rash, skin lesions, or pruritis. NEUROLOGIC: Denies weakness, dizziness, headache, numbness, confusion. PSYCHIATRIC: No concerning psychosocial issues. Patient History <Haroldo Teague FINANCIAL OPERATIONS CONSULTANT - Last Filed: 12/21/24 12:49> Medical History Acquired hypothyroidism Acute cystitis with hematuria Adhesive capsulitis of left shoulder Do not resuscitate Menopausal syndrome Mixed hyperlipidemia Primary osteoarthritis involving multiple joints SVT (supraventricular tachycardia) Tendonitis of left rotator cuff Social History details: (Gerard) 2020, son age 51 prostate cancer household members: none Smoking Status: Never smoker alcohol intake: never Smoking Status: Never smoker Alcohol type: beer Exam <Haroldo Teague FINANCIAL OPERATIONS CONSULTANT - Last Filed: 12/21/24 12:49> Narrative Exam Narrative: Exam Narrative: GENERAL: This is a well-nourished, well-developed patient, in no acute distress. HEAD: Atraumatic. Normocephalic. EYES: Pupils equal round and reactive. Extraocular motions intact. No scleral icterus, injection or drainage. ENT: Nose without bleeding, purulent drainage. Airway patent. NECK: Trachea midline. No JVD or lymphadenopathy. Nontender. CARDIOVASCULAR: Irregular rate and rhythm without murmurs, peripheral pulses intact, cap refill <2 sec. EKG ordered. RESPIRATORY: Breath sounds equal and clear bilaterally. No wheezes, rales, or rhonchi. No cough. No increased respiratory effort. No accessory muscle use. GASTROINTESTINAL: Abdomen soft, non-tender, nondistended without guarding or rebound. No suprapubic pain. MSK: Moves all extremities. Normal range of motion, no clubbing or edema. Neurovascularly intact. Pain of right hip upon palpation. Positive pedal pulses and normal sensation. NEURO: A&O x 3. supervisor home energy consultant II-XI intact bilaterally. SKIN: Warm, dry, no rashes or lesions noted. Initial Vital Signs Initial Vital Signs: Vital Signs Temperature 99.2 F 12/21/24 11:06 Pulse Rate 77 12/21/24 11:06 Respiratory Rate 18 12/21/24 11:06 Blood Pressure 169/96 H 12/21/24 11:06 Pulse Oximetry 100 12/21/24 11:06 Oxygen Delivery Method Room Air 12/21/24 11:06 Reviewed <Barby Leong DO - Last Filed: 12/21/24 16:04> Initial Vital Signs Initial Vital Signs: Vital Signs Temperature 99.2 F 12/21/24 11:06 Pulse Rate 77 12/21/24 11:06 Respiratory Rate 18 12/21/24 11:06 Blood Pressure 169/96 H 12/21/24 11:06 Pulse Oximetry 100 12/21/24 11:06 Oxygen Delivery Method Room Air 12/21/24 11:06 Scores <Barby Leong DO - Last Filed: 12/21/24 16:04> NIH Stroke Scale Level of Conciousness: Alert, keenly responsive Ask month/age: Answers both questions correctly. Open/close eyes, close hand: Performs both tasks correctly Best gaze horizontal: Normal Visual florian: No visual loss Facial palsy: Normal symetrical movement Left arm drift: No drift for full 10 sec Right arm drift: No drift for full 10 sec Left leg drift: No drift for full 5 sec Right leg drift: No drift for full 5 sec Limb ataxia: Absent Sensory on face/arms/legs: Normal, no sensory loss Best language: No aphasia, normal Dysarthria: Normal Extinction or inattention: No abnormality Total NIH Stroke scale score: 0 Course <ANTHONY Heath - Last Filed: 12/21/24 12:49> Orders Ordered: ED Orders 12/21/24 12:11 EKG-12 Lead Stat 12/21/24 12:34 CT angio head and neck Stat XR chest 2V Stat 12/21/24 12:36 XR hip w pel if done BILAT 2V Stat 12/21/24 12:49 CT head/brain wo con Stat 12/21/24 13:10 BNP [NT-proBNP (BNP-Adult 18+)] Stat CBC Auto Diff [Complete Blood Count AUTO DIFF] Stat CMP [Comprehensive Metabolic Panel] Stat MAG [Magnesium] Stat Troponin & CK Cardiac Panel Stat 12/21/24 13:41 US periph venous low extrem rt Stat Acetaminophen (Acetaminophen 325 Mg Tablet) 650 mg PO Q6H PRN PRN Reason: Fever/Mild Pain (1-3) Apixaban (Apixaban 5 Mg Tablet) 2.5 mg PO BID RG Hydromorphone HCl (Hydromorphone 0.5 Mg Inj) 0.5 mg IV Q2H PRN PRN Reason: Pain, Severe (7-10) Last Admin: 12/21/24 15:48 Dose: 0.5 mg Documented By: LDV Diltiazem HCl 125 mg/ Sodium (Chloride) 125 mls @ 5 mls/hr IV TITRATE RG; Protocol Last Titration: 12/21/24 15:03 Dose: 10 mg/hr, 10 mls/hr Documented By: Admin: 12/21/24 14:04 Dose: 5 mg/hr, 5 mls/hr Documented By: HARDY Levothyroxine Sodium (Levothyroxine 88 Mcg Tablet) 88 mcg PO 0600 RG Naloxone HCl (Naloxone 0.4 Mg/Ml Vial) 0.2 mg IV Q2MIN PRN PRN Reason: Opiate Reversal Ondansetron HCl (Ondansetron 4 Mg/2 Ml Inj) 4 mg IV Q4HR PRN PRN Reason: Nausea And Vomiting Discontinued Medications Acetaminophen (Acetaminophen 325 Mg Tablet) 975 mg PO NOW ONE Stop: 12/21/24 13:39 Last Admin: 12/21/24 13:52 Dose: 975 mg Documented By: FARZAD Apixaban (Apixaban 5 Mg Tablet) 5 mg PO BID RG Last Admin: 12/21/24 15:55 Dose: Not Given Documented By: RB Diltiazem HCl (Diltiazem 25 Mg/5 Ml Sdv) 10 mg IV NOW ONE Stop: 12/21/24 13:39 Last Admin: 12/21/24 13:53 Dose: 10 mg Documented By: KM Sodium Chloride (Normal Saline 0.9%) 1,000 mls @ 500 mls/hr IV BOLUS ONE Stop: 12/21/24 15:38 Last Admin: 12/21/24 13:52 Dose: 500 mls/hr Documented By: FARZAD Potassium Chloride (Potassium Chloride 20 Meq Tab) 40 meq PO NOW ONE Stop: 12/21/24 13:40 Last Admin: 12/21/24 13:52 Dose: 40 meq Documented By: FARZAD Vital Signs Vital signs: Vital Signs - 8 hr 12/21/24 11:06 12/21/24 13:23 12/21/24 13:23 Temperature 99.2 F Pulse Rate 77 144 H Respiratory Rate 18 14 Blood Pressure 169/96 H 150/95 H Pulse Oximetry 100 100 Oxygen Delivery Method Room Air 12/21/24 13:30 12/21/24 13:30 12/21/24 14:00 Temperature Pulse Rate 153 H 134 H Respiratory Rate 17 16 Blood Pressure 147/114 H Pulse Oximetry 100 98 Oxygen Delivery Method 12/21/24 14:00 Temperature Pulse Rate Respiratory Rate Blood Pressure 113/60 Pulse Oximetry Oxygen Delivery Method <Barby Leong, - Last Filed: 12/21/24 16:04> Orders Ordered: ED Orders 12/21/24 12:11 EKG-12 Lead Stat 12/21/24 12:34 CT angio head and neck Stat XR chest 2V Stat 12/21/24 12:36 XR hip w pel if done BILAT 2V Stat 12/21/24 12:49 CT head/brain wo con Stat 12/21/24 13:10 BNP [NT-proBNP (BNP-Adult 18+)] Stat CBC Auto Diff [Complete Blood Count AUTO DIFF] Stat CMP [Comprehensive Metabolic Panel] Stat MAG [Magnesium] Stat Troponin & CK Cardiac Panel Stat 12/21/24 13:41 US periph venous low extrem rt Stat Acetaminophen (Acetaminophen 325 Mg Tablet) 650 mg PO Q6H PRN PRN Reason: Fever/Mild Pain (1-3) Apixaban (Apixaban 5 Mg Tablet) 2.5 mg PO BID RG Hydromorphone HCl (Hydromorphone 0.5 Mg Inj) 0.5 mg IV Q2H PRN PRN Reason: Pain, Severe (7-10) Last Admin: 12/21/24 15:48 Dose: 0.5 mg Documented By: LDV Diltiazem HCl 125 mg/ Sodium (Chloride) 125 mls @ 5 mls/hr IV TITRATE RG; Protocol Last Titration: 12/21/24 15:03 Dose: 10 mg/hr, 10 mls/hr Documented By: Admin: 12/21/24 14:04 Dose: 5 mg/hr, 5 mls/hr Documented By: ES Levothyroxine Sodium (Levothyroxine 88 Mcg Tablet) 88 mcg PO 0600 RG Naloxone HCl (Naloxone 0.4 Mg/Ml Vial) 0.2 mg IV Q2MIN PRN PRN Reason: Opiate Reversal Ondansetron HCl (Ondansetron 4 Mg/2 Ml Inj) 4 mg IV Q4HR PRN PRN Reason: Nausea And Vomiting Discontinued Medications Acetaminophen (Acetaminophen 325 Mg Tablet) 975 mg PO NOW ONE Stop: 12/21/24 13:39 Last Admin: 12/21/24 13:52 Dose: 975 mg Documented By: FARZAD Apixaban (Apixaban 5 Mg Tablet) 5 mg PO BID RG Last Admin: 12/21/24 15:55 Dose: Not Given Documented By: ZENA Diltiazem HCl (Diltiazem 25 Mg/5 Ml Sdv) 10 mg IV NOW ONE Stop: 12/21/24 13:39 Last Admin: 12/21/24 13:53 Dose: 10 mg Documented By: FARZAD Sodium Chloride (Normal Saline 0.9%) 1,000 mls @ 500 mls/hr IV BOLUS ONE Stop: 12/21/24 15:38 Last Admin: 12/21/24 13:52 Dose: 500 mls/hr Documented By: FARZAD Potassium Chloride (Potassium Chloride 20 Meq Tab) 40 meq PO NOW ONE Stop: 12/21/24 13:40 Last Admin: 12/21/24 13:52 Dose: 40 meq Documented By: FARZAD Vital Signs Vital signs: Vital Signs - 8 hr 12/21/24 11:06 12/21/24 13:23 12/21/24 13:23 Temperature 99.2 F Pulse Rate 77 144 H Respiratory Rate 18 14 Blood Pressure 169/96 H 150/95 H Pulse Oximetry 100 100 Oxygen Delivery Method Room Air 12/21/24 13:30 12/21/24 13:30 12/21/24 14:00 Temperature Pulse Rate 153 H 134 H Respiratory Rate 17 16 Blood Pressure 147/114 H Pulse Oximetry 100 98 Oxygen Delivery Method 12/21/24 14:00 Temperature Pulse Rate Respiratory Rate Blood Pressure 113/60 Pulse Oximetry Oxygen Delivery Method MDM - Extremity (Nontraumatic) <ANTHONY Heath - Last Filed: 12/21/24 12:49> Differential Diagnosis Differential diagnosis: Likely other (Atrial fibrillation, hip arthritis/fracture, stroke/TIA) Lab Data 12/21/24 13:10 12/21/24 13:10 Labs: Lab Results 12/21/24 Range/Units 13:10 WBC 9.3 (4.5-11.0) X10^3/uL RBC 4.40 (4.0-5.2) X10^6/uL Hgb 13.5 (12.0-16.0) g/dL Hct 40.2 (36-46) % MCV 91.5 (80-100) fL MCH 30.8 (26-34) PG MCHC 33.6 (30-36) % RDW 14.8 (11.6-14.8) % Plt Count 268 (150-400) X10^3/uL Neut % (Auto) 84.6 H (50-75) % Lymph % (Auto) 7.9 L (25-40) % [place] % (Auto) 7.2 (3-14) % Eos % (Auto) 0.1 L (2-4) % Baso % (Auto) 0.2 (0-2) % Neut # (Auto) 7900 H (4185-1432) /uL Lymph # (Auto) 700 L (7926-4275) /uL [place] # (Auto) 700 (0-900) /uL Eos # (Auto) 0 (0-450) /uL Baso # (Auto) 0 (0-100) /uL Sodium 138 (137-145) mmol/L Potassium 3.3 L (3.4-5.1) mmol/L Chloride 107 (98-107) mmol/L Carbon Dioxide 17 L (22-32) mmol/L BUN 23 H (7-17) mg/dL Creatinine 0.85 (0.52-1.04) mg/dL Estimated GFR > 60 (>60) mL/min BUN/Creatinine Ratio 27.1 H (6-22) Glucose 107 (80-110) mg/dL Calcium 9.1 (8.4-10.2) mg/dL Magnesium 1.7 (1.6-2.3) mg/dL Total Bilirubin 0.6 (0.2-1.3) mg/dL AST 45 H (14-36) IU/L ALT 50 H (<35) IU/L Alkaline Phosphatase 58 (38-126) U/L Total Creatine Kinase 222 H (30-135) U/L Troponin I 0.028 (0.01-0.034) ng/mL NT-Pro-B Natriuret Pep 1180 H (<450) pg/mL Total Protein 7.5 (6.3-8.2) g/dL Albumin 4.3 (3.5-5.0) g/dL Globulin 3.2 (1.7-4.1) g/dL Albumin/Globulin Ratio 1.3 (1.0-2.8) ECG Data Interpretation: New onset AFib 154 bps MDM Narrative Medical decision making narrative: 84-year-old female with right hip pain, chest pain and recent history suspected neuro deficits. Clinical findings revealed multiple red flag symptoms. EKG revealed new onset AFib. Will obtain chest x-ray and labs. Pelvis and bilateral hip x-ray ordered for persistent hip pain. CT angio head and neck ordered for previously suspected neuro deficits. Patient moved from fast track to main ER. <Barby Leong, DO - Last Filed: 12/21/24 16:04> Lab Data Labs: Lab Results 12/21/24 Range/Units 13:10 WBC 9.3 (4.5-11.0) X10^3/uL RBC 4.40 (4.0-5.2) X10^6/uL Hgb 13.5 (12.0-16.0) g/dL Hct 40.2 (36-46) % MCV 91.5 (80-100) fL MCH 30.8 (26-34) PG MCHC 33.6 (30-36) % RDW 14.8 (11.6-14.8) % Plt Count 268 (150-400) X10^3/uL Neut % (Auto) 84.6 H (50-75) % Lymph % (Auto) 7.9 L (25-40) % [place] % (Auto) 7.2 (3-14) % Eos % (Auto) 0.1 L (2-4) % Baso % (Auto) 0.2 (0-2) % Neut # (Auto) 7900 H (3041-9001) /uL Lymph # (Auto) 700 L (4475-6825) /uL [place] # (Auto) 700 (0-900) /uL Eos # (Auto) 0 (0-450) /uL Baso # (Auto) 0 (0-100) /uL Sodium 138 (137-145) mmol/L Potassium 3.3 L (3.4-5.1) mmol/L Chloride 107 (98-107) mmol/L Carbon Dioxide 17 L (22-32) mmol/L BUN 23 H (7-17) mg/dL Creatinine 0.85 (0.52-1.04) mg/dL Estimated GFR > 60 (>60) mL/min BUN/Creatinine Ratio 27.1 H (6-22) Glucose 107 (80-110) mg/dL Calcium 9.1 (8.4-10.2) mg/dL Magnesium 1.7 (1.6-2.3) mg/dL Total Bilirubin 0.6 (0.2-1.3) mg/dL AST 45 H (14-36) IU/L ALT 50 H (<35) IU/L Alkaline Phosphatase 58 (38-126) U/L Total Creatine Kinase 222 H (30-135) U/L Troponin I 0.028 (0.01-0.034) ng/mL NT-Pro-B Natriuret Pep 1180 H (<450) pg/mL Total Protein 7.5 (6.3-8.2) g/dL Albumin 4.3 (3.5-5.0) g/dL Globulin 3.2 (1.7-4.1) g/dL Albumin/Globulin Ratio 1.3 (1.0-2.8) ECG Data Attestation EKG: I personally reviewed and interpreted this ECG as follows: Prior ECG tracings: not available for review Interpretation: New onset AFib [address] Leong: AFib rapid ventricular response rate of 151 QRS 88 QTC of 453, no acute ST elevation appreciated nonspecific change patient. No priors for comparison. MDM Narrative Medical decision making narrative: 84-year-old female with right hip pain, chest pain and recent history suspected neuro deficits. Clinical findings revealed multiple red flag symptoms. EKG revealed new onset AFib. Will obtain chest x-ray and labs. Pelvis and bilateral hip x-ray ordered for persistent hip pain. CT angio head and neck ordered for previously suspected neuro deficits. Patient moved from fast track to main ER. Dr. Leong assumed care: Patient presented with complaint of right hip pain but also notes about a week had some stroke-like symptoms with what sounds like aphasia or dysarthria. These have resolved but patient has appears to be AFib on EKG does not have any known history we will order stroke workup for suspected TIA. Patient's main complaint was right hip pain that has been chronic in nature and ongoing waking her up from sleep with difficulty with ambulating longer distances. Patient also notes little bit of calf discomfort as well which is part of her discomfort. We will order DVT ultrasound to rule out clot although patient notes she has been told she had an irregular heartbeat or AFib in the past but is not currently anticoagulated she states she takes medication for a sedative if it acts up. NIH is 0 Labs show white count of 9.3 hemoglobin of 13.5 platelets of 268. Chemistry shows normal sodium slight hypokalemia with a potassium of 3.3 we will replaced orally, calcium of 107 CO2 17 BUN 23 with a creatinine 0.85 glucose is 107 AST ALT are slightly elevated but normal bilirubin, alk-phos is normal. Total CK is 222, troponin 0.028 with a BNP of 1180. EKG shows AFib rapid ventricular response rate of 150. Patient does not have prior for comparison. Head CT noncontrast age-appropriate atrophy and chronic ischemic change no bleed or mass effect. CT head and neck angio is unremarkable no large vessel occlusion, aneurysm or vascular malformation no significant stenosis. Patient noted to have a hypoplastic/aplastic right P1 REWRITE EDITOR noted P2 segment supplied by widely patent posterior communicating artery remainder of distal vasculature unremarkable. Chest x-ray shows cardiomegaly no other acute changes. Hip x-ray shows mild degenerative changes no change from prior. DVT ultrasound is pending. Patient was given Tylenol for her discomfort. Diltiazem for her rate which improved but will require diltiazem drip. Patient also had oral potassium given as well as 500 cc bolus. Patient appears to have new son atrial fibrillation is not a candidate for cardioversion unclear she has no symptoms of her AFib RVR. Does need stroke workup had what sounds like TIA could be related to her atrial fibrillation. Dr. Major is primary care physician. He was also on-call for hospitalist service today. Dr. Major Webex 135 Dr. Major is familiar with the patient, accepts for inpatient. Discussed DVT ultrasound is pending could potentially change anticoagulation choices/dosage so we will hold off on anticoagulating until this is resulted. Critical Care Time <Barby Leong, - Last Filed: 12/21/24 16:04> Critical Care Time Critical Care Time: Yes Total Critical Care Time: 35 Attestation: The high probability of a clinically significant, sudden or life threatening deterioration of the cardiac, neurologic system(s) required my full and direct attention, intervention and personal management. The aggregate critical care time was [--] minutes. This time is in addition to time spent performing reported procedures but includes the following: [x] Data Review and interpretation [x] Patient assessment and monitoring of vital signs [x] Documentation [x] Medication orders and management Discharge Plan Departure Patient Disposition: Admitted As Inpatient Clinical Impression: Atrial fibrillation with RVR, Hypokalemia Admit Date/Time: 12/21/24 14:06 Admit Provider: Lex Major V
--- NOTE | 2024-12-21 12:49 | DI.CT.S_ITS ---
PROCEDURE: CT HEAD/BRAIN WO CON INDICATIONS: had speech changes 1 week ago, afib today TECHNIQUE: Noncontrast 4.5 mm thick angled axial sections acquired from the foramen magnum to the vertex, with coronal and sagittal reformats. For radiation dose reduction, the following was used: automated exposure control, adjustment of mA and/or kV according to patient size. COMPARISON: None. FINDINGS: Image quality: Diagnostic. CSF spaces: Basal cisterns are patent. No extra-axial fluid collections. Ventricles are normal in size and shape. Brain: No midline shift. No intracranial masses or hemorrhage. Gonzalez-white matter interface is normal. Skull and face: Calvarium and visualized facial bones are intact, without suspicious lesions. Sinuses: Visualized sinuses and mastoids are clear. IMPRESSION: Age-appropriate atrophy and chronic ischemic change intracranial hemorrhage or mass effect. Approved by: Teo Alfonso M.D. on 12/21/2024 at 12:44
[2024-12-21 13:24] LABS: Add Manual Diff / Slide Review NO; Basophils Absolute Auto 0 /uL (0-100); Basophils Percent Auto 0.2 % (0-2); Eosinophils Absolute Auto 0 /uL (0-450); Eosinophils Percent Auto 0.1 % (2-4); Hematocrit 40.2 % (36-46); Hemoglobin 13.5 g/dL (12.0-16.0); Lymphocytes Absolute Auto 700 /uL (1100-4500); Lymphocytes Percent Auto 7.9 % (25-40); Mean Corpuscular HGB Conc 33.6 % (30-36); Mean Corpuscular Hemoglobin 30.8 PG (26-34); Mean Corpuscular Volume 91.5 fL (80-100); Monocytes Absolute Auto 700 /uL (0-900); Monocytes Percent Auto 7.2 % (3-14); Neutrophils Absolute Auto 7900 /uL (1500-7000); Neutrophils Percent Auto 84.6 % (50-75); Platelet Count 268 X10^3/uL (150-400); Red Cell Distribution Width 14.8 % (11.6-14.8); White Blood Cell Count 9.3 X10^3/uL (4.5-11.0)
[2024-12-21 13:36] LABS: Alanine Aminotransferase 50 IU/L (<35); Albumin 4.3 g/dL (3.5-5.0); Albumin Globulin Ratio 1.3 (1.0-2.8); Alkaline Phosphatase 58 U/L (38-126); Aspartate Aminotransferase 45 IU/L (14-36); BUN Creatinine Ratio 27.1 (6-22); Bilirubin Total 0.6 mg/dL (0.2-1.3); Blood Urea Nitrogen 23 mg/dL (7-17); Calcium 9.1 mg/dL (8.4-10.2); Carbon Dioxide 17 mmol/L (22-32); Chloride 107 mmol/L (98-107); Creatine Kinase 222 U/L (30-135); Estimated Glomerular Filt Rate > 60 mL/min (>60); Globulin 3.2 g/dL (1.7-4.1); Glucose 107 mg/dL (80-110); HEMOLYSIS < 15 (0-50); Potassium 3.3 mmol/L (3.4-5.1); Sodium 138 mmol/L (137-145); Total Protein 7.5 g/dL (6.3-8.2)
--- NOTE | 2024-12-21 13:41 | DI.US.S_ITS ---
PROCEDURE: US PERIPH VENOUS LOW EXTREM RT INDICATIONS: RIGHT CALF PAIN TECHNIQUE: Real-time imaging, as well as color and pulse Doppler interrogation, were performed of the lower extremity deep veins from the inguinal ligament to the popliteal fossa, with documentation of the visualized calf veins. COMPARISON: None. FINDINGS: The common femoral, femoral, popliteal, and the visualized calf veins are normally compressible, and free of intraluminal thrombus. Color and pulse Doppler demonstrate normal phasic intraluminal flow. There is normal augmentation response to distal compression maneuver. IMPRESSION: No findings of lower extremity deep venous thrombosis. Incidental popliteal cyst Approved by: Teo Alfonso M.D. on 12/21/2024 at 14:22
[2024-12-21 13:48] LABS: NT-proBNP (BNP-Adult 18+) 1180 pg/mL (<450); Troponin I 0.028 ng/mL (0.01-0.034)
[2024-12-21] MEDS: POTASSIUM CHLORIDE 20 MEQ TAB 40 MEQ PO (13:52)
[2024-12-21] MEDS: SODIUM CHLORIDE 0.9% 1,000 ML 500 ML IV (13:52)
[2024-12-21] MEDS: ACETAMINOPHEN 325 MG TABLET 975 MG PO (13:52)
[2024-12-21] MEDS: dilTIAZem 25 MG/5 ML SDV 10 MG IV (13:53)
[2024-12-21] MEDS: dilTIAZem 125 MG in SODIUM CHLORIDE 0.9% 100 ML IV (14:04)
[2024-12-21 14:09] LABS: Magnesium 1.7 mg/dL (1.6-2.3)
--- NOTE | 2024-12-21 14:38 | P.HP_ITS ---
History of Present Illness History of Present Illness Date Patient Seen: 12/21/24 Time Patient Seen: 14:15 Chief complaint: left hip and right knee pain- took lots of NSAIDS Narrative: 84-year-old woman under the primary care of Dr. Lex Major experienced an episode of slurred speech and word-finding difficulty last week according to her friend Karen, presents in the emergency department today. This resolved completely and she presented to the emergency department today because of right leg pain for which she took [id number] anti-inflammatories without relief. She was found to be in atrial fibrillation with rapid ventricular response with heart rates in the 150s. Given recent neurologic symptoms she underwent brain imaging showing no evidence of acute stroke, and currently denies any further neurologic symptoms, with an NIHSS score of 0. She notes mild chest pressure and sense of palpitations. She has a longstanding history of intermittent palpitations that have been diagnosed as SVT, for which he is taken diazepam 5 mg as needed intermittently for many years, with previous evaluations failing to demonstrate atrial fibrillation. She was started on a diltiazem infusion in the emergency department. Ultrasound of the right leg is pending. [facility] Medical History Acquired hypothyroidism Acute cystitis with hematuria Adhesive capsulitis of left shoulder Do not resuscitate Menopausal syndrome Mixed hyperlipidemia Primary osteoarthritis involving multiple joints SVT (supraventricular tachycardia) Tendonitis of left rotator cuff Social History details: (Gerard) 2020, son age 51 prostate cancer Smoking Status: Never smoker Meds Home Medications and Allergies Home Medications Medication Instructions Recorded Confirmed Type diclofenac sodium 1 % topical gel 4 g topical QID 05/19/24 10/29/24 History naproxen sodium 220 mg tablet 440 mg PO DAILY 05/19/24 10/29/24 History (Aleve) Biest/progesterone 6.25/50mg/gm 0.5 g topical DAILY #45 grams 09/26/24 10/29/24 Rx levothyroxine 88 mcg tablet 88 mcg PO DAILY #90 tabs 11/21/24 Rx diazepam 5 mg tablet 5 mg PO BID PRN palpitations #90 12/01/24 Rx tabs Allergies Allergy/AdvReac Type Severity Reaction Status Date / Time codeine AdvReac Severe Vomiting Verified 10/29/24 11:27 Opioids - Morphine Analogues AdvReac Vomiting Verified 10/29/24 11:27 Review of Systems Review of Systems ROS: Yes All systems reviewed with the patient and are negative except as otherwise documented Exam Vital Signs (past 8 hours): - 12/21/24 11:06 12/21/24 13:23 12/21/24 13:23 Temperature 99.2 F Pulse Rate 77 144 H Respiratory Rate 18 14 Blood Pressure 169/96 H 150/95 H Pulse Oximetry 100 100 Oxygen Delivery Method Room Air 12/21/24 13:30 12/21/24 13:30 Temperature Pulse Rate 153 H Respiratory Rate 17 Blood Pressure 147/114 H Pulse Oximetry 100 Oxygen Delivery Method Oxygen Delivery Method Room Air Narrative Exam Narrative: GENERAL: This is a well-nourished, well-developed patient, in no apparent distress. HEAD: Atraumatic. Normocephalic. No temporal or scalp tenderness. EYES: Pupils equal round and reactive. Extraocular motions intact. No scleral icterus. No injection or drainage. ENT: Mucous membranes pink and moist. NECK: Trachea midline. No JVD, bruits or lymphadenopathy. Supple, nontender, no meningeal signs. CARDIOVASCULAR: Irregularly irregular, tachycardic without murmurs, gallops, or rubs. RESPIRATORY: Clear to auscultation. GASTROINTESTINAL: Abdomen soft, non-tender, nondistended. EXTREMITIES: No clubbing, cyanosis, or edema. BACK: Nontender without deformity or crepitance. No flank tenderness. MSK: Right leg nontender, no calf swelling, no rash or skin lesions, full range of motion right ankle, knee and hip. NEUROLOGIC: Alert, oriented, speech fluent, full upper and lower motor strength, no focal deficits evident. DERMATOLOGIC: No rashes or skin lesions. Objective ECG Impression: Atrial fibrillation with rapid ventricular response at 151 beats per minute, occasional PVCs, Q-waves V1 and V2. Imaging *: Radiologist's impression: 1. Chest x-ray: Cardiomegaly. No acute cardiopulmonary findings 2. Head/neck CT angiography: Unremarkable. No large vessel occlusion, aneurysm or vascular malformation. No significant stenosis. 3. Head CT: Age-appropriate atrophy and chronic ischemic change intracranial hemorrhage or mass effect. 4. Hip x-ray: Mild degenerative changes. No change from the prior exam. No fracture. Labs 12/21/24 13:10 12/21/24 13:10 Labs: Laboratory Results - last 24 hr 12/21/24 13:10 WBC 9.3 RBC 4.40 Hgb 13.5 Hct 40.2 MCV 91.5 MCH 30.8 MCHC 33.6 RDW 14.8 Plt Count 268 Neut % (Auto) 84.6 H Lymph % (Auto) 7.9 L [place] % (Auto) 7.2 Eos % (Auto) 0.1 L Baso % (Auto) 0.2 Neut # (Auto) 7900 H Lymph # (Auto) 700 L [place] # (Auto) 700 Eos # (Auto) 0 Baso # (Auto) 0 Sodium 138 Potassium 3.3 L Chloride 107 Carbon Dioxide 17 L BUN 23 H Creatinine 0.85 Estimated GFR > 60 BUN/Creatinine Ratio 27.1 H Glucose 107 Calcium 9.1 Magnesium 1.7 Total Bilirubin 0.6 AST 45 H ALT 50 H Alkaline Phosphatase 58 Total Creatine Kinase 222 H Troponin I 0.028 NT-Pro-B Natriuret Pep 1180 H Total Protein 7.5 Albumin 4.3 Globulin 3.2 Albumin/Globulin Ratio 1.3 Assessment & Plan Assessment & Plan narrative: 1. New onset atrial fibrillation with rapid ventricular response. Admit to ICU, continue IV diltiazem infusion, monitor serial cardiac enzymes, obtain echocardiogram, and follow clinically. 2. Recent aphasia and dysarthria, likely TIA in the past week due to 1. Treat with anticoagulation. Await right leg study to rule out DVT to determine appropriate anticoagulant dosing. 3. Right leg pain, rule out DVT. Unlikely clinically. Treat symptomatically. 4. History of supraventricular tachycardia. 5. Hypothyroidism. TSH was in range on 10/20/2024 6. Hyperlipidemia. Declined statins. 7. DVT prophylaxis: To be addressed on anticoagulation as above. 8. Code status: Do not resuscitate. The patient affirms this wish today and has a POLST form in the chart. Plan: -admit to ICU -diltiazem infusion -serial cardiac enzymes -echocardiogram -ultrasound right leg, rule out DVT -anticoagulation dosing to be determined -do not resuscitate Patient is admitted inpatient status as she will require at least 2 midnights of inpatient level care. Quality MIPS - Admit I confirm the patient?s Advance Care Plan is present, Code status is documented, Surrogate decision maker is in patient?s record [If Yes, STOP here]: Yes [facility] - Meds 'Current medications' to include all prescriptions, [id number] products, herbals, cannabis/cannabidiol products, and vitamin/mineral/dietary (nutritional) supplements. I have utilized all available resources to obtain, update, or review the patient?s current medications. [If Yes, STOP here]: Yes [employer] Document charge(s): No Charge Codes Initial inpatient/observation care: 23834
--- NOTE | 2024-12-21 14:45 | DI.ECHO.S_ITS ---
[place] [facility]+ [facility] : : [address] : : [place] : : [id number] : : Phone: [phone] Echocardiogram Report + + :Name: HENRIK WYATT Study Date: 12/22/2024 Height: 65 in: :[facility] ReadingLocation: Weight: 97 lb: : Gender: Female BSA: 1.5 m2 : :: 1940 Age: 84 yrs : :Reason For Study: NEW ATRIAL FIBRILLATION : :Ordering Physician: LENNIE, : :[place] Performed By: Elda Matias : :Referring: [place] HOGUE : + + Interpretation Summary The ejection fraction is estimated to be 30-35%. There is moderate global hypokinesis of the left ventricle. The right ventricle is mild to moderately dilated. Right ventricular systolic function is mildly reduced. There is severe biatrial enlargement. The interatrial septum bows toward right atrium consistent with elevated left atrial pressure. There is moderate to severe mitral regurgitation. There is moderate tricuspid regurgitation. The right ventricular systolic pressure is estimated to be at least 45 mmHg based on an estimated right atrial pressure of 15 mm Hg. Procedure: A two-dimensional transthoracic echocardiogram with color flow and Doppler was performed. The study quality was technically adequate. There is no prior echocardiogram noted for this patient. The patient was in atrial fibrillation with heart rates between 82-98 bpm during the exam. Left Ventricle: The left ventricle is normal in size and wall thickness. The ejection fraction is estimated to be 30-35%. There is moderate global hypokinesis of the left ventricle. Diastolic function could not be accurately assessed due to atrial fibrillation. Right Ventricle: The right ventricle is mild to moderately dilated. Right ventricular systolic function is mildly reduced. Atria: The left atrium is severely dilated. There is severe biatrial enlargement. The right atrium is severely dilated. The atrial septum is aneurysmal. There is no Doppler evidence for an interatrial shunt. The interatrial septum bows toward right atrium consistent with elevated left atrial pressure. Mitral Valve: The mitral valve leaflets appear moderately thickened, but open well. There is moderate to severe mitral regurgitation. Aortic Valve: The aortic valve is trileaflet. The aortic valve is mildly calcified. There is no aortic valve stenosis. There is mild aortic regurgitation. Tricuspid Valve: The tricuspid valve leaflets are thin and pliable. There is moderate tricuspid regurgitation. The right ventricular systolic pressure is estimated to be at least 45 mmHg based on an estimated right atrial pressure of 15 mm Hg. Pulmonic Valve: The pulmonic valve leaflets are thin and pliable; valve motion is normal. There is mild pulmonic regurgitation. Great Vessels: The aortic root is normal size. The dimensions of the ascending aorta are normal. The IVC is dilated (diameter is greater than 2.1 cm) and it collapses less than 50% with a sniff. This suggests a high right atrial pressure of 15 mm Hg. Pericardium/ Pleura There is a small pericardial effusion noted. There is no pleural effusion. MMode/2D Measurements & Calculations LVIDd: 5.1 cm LVOT diam: 1.9 cm LVIDs: 4.0 cm Ao root diam: 2.5 cm FS: 21.8 % asc Aorta Diam: 2.6 cm EPSS: 0.83 cm Ao Arch Diam (Prox Trans): 2.1 cm IVSd: 0.74 cm LVPWd: 0.68 cm LV pulliam. diameter/BSA (cm/m^2): 3.5 LV sys. diameter/BSA (cm/m^2): 2.7 LA A2 area: 25.1 cm2 RA long axis: 7.0 cm LA A4 area: 34.0 cm2 RA area: 27.5 cm2 LA length (vol): 7.1 cm RA vol: 91.2 ml LA vol: 102.5 ml RA : 62.7 ml/m2 LA vol index: 70.5 ml/m2 IVC diam: 2.7 cm RVD1 (basal): 3.6 cm RVD2 (mid): 2.9 cm TAPSE: 1.7 cm Doppler Measurements & Calculations Ao V2 max: 126.7 cm/sec LVOT Max Som: 53.8 cm/sec Ao V2 mean: 85.1 cm/sec LV V1 max P.2 mmHg Ao max P.5 mmHg LV V1 VTI: 7.7 cm Ao mean P.3 mmHg CHRIS(I,D): 1.00 cm2 Ao V2 VTI: 21.5 cm CHRIS(V,D): 1.2 cm2 sev ratio: 0.36 CHRIS indexed to BSA (cm^2/m^2): 0.68 AI P1/2t: 480.8 msec AI dec slope: 253.6 cm/sec2 MV E max som: 85.7 cm/sec TR max som: 277.5 cm/sec MV A max som: 0.64 cm/sec TR max P.8 mmHg MV E/A: 134.4 PA pr(Accel): 60.2 mmHg Med Peak E' Som: 7.3 cm/sec E/E' med: 11.7 Lat Peak E' Som: 10.6 cm/sec E/E' lat: 8.0 E/e' average: 9.9 MV dec time: 0.14 sec MR ERO: 0.35 cm2 MR PISA: 4.1 cm2 SV(LVOT): 21.4 ml MR flow rate: 178.7 cm3/sec MR PISA radius: 0.81 cm Reading Physician:12:51 PM
[2024-12-21] MEDS: HYDROMORPHONE 0.5 MG INJ IV (15:48)
[2024-12-21] MEDS: MAGNESIUM CHLORIDE 64 MG TABLET 128 MG PO (16:52)
[2024-12-21] MEDS: APIXABAN 5 MG TABLET 2.5 MG PO ×2 (16:52→20:26)
[2024-12-21] MEDS: HYDROCODONE/ACET 5/325 TABLET 1 TAB PO (17:00)
[2024-12-21] MEDS: SODIUM CHLORIDE 0.9% FLUSH 10 ML IV (20:38)
[2024-12-21] MEDS: ONDANSETRON 4 MG/2 ML INJ IV (22:16)
[2024-12-21 23:47] LABS: MRSA (Nasal) PCR NOT DETECTED (Not Detect)
[2024-12-22] VITALS (38 sets, daily range): BP systolic 96–145; BP diastolic 56–95; PULSE 80–132; RESP 7–24; TEMP 36.4–36.6; O2SAT 92–98
[2024-12-22] MEDS: ACETAMINOPHEN 325 MG TABLET 650 MG PO (02:03)
[2024-12-22] MEDS: SODIUM CHLORIDE 0.9% 1,000 ML 100 ML IV (02:11)
[2024-12-22 02:15] LABS: Appearance Urine UA SL CLOUDY; Bilirubin Urine UA 1+ (NEGATIVE); Glucose Urine UA NEGATIVE (Negative); Ketones Urine UA 2+ (NEGATIVE); Leukocyte Esterase Urine UA NEGATIVE (NEGATIVE); Nitrite Urine UA NEGATIVE (Negative); Occult Blood Urine UA 3+ (Negative); Protein Urine UA 2+ (Negative); Specific Gravity Urine UA 1.025 (1.000-1.035); Urobilinogen Urine UA 0.2 E.U./dL (0.2)
[2024-12-22 02:25] LABS: Color Urine UA Dark Yellow; pH Urine UA 5.5 (4.5-8.0)
[2024-12-22 02:26] LABS: Bacteria Urine Moderate (10-30); Ictotest Urine Negative (Negative); RBC Urine 30-100/HPF (0-5/HPF); Squamous Epithelial Cell Urine 1-5 /HPF (0-5/HPF); Urine Volume 10mL (spun); WBC Urine 1-5/HPF (0-5/HPF)
[2024-12-22 02:27] LABS: Hyaline Casts Urine 0-1/LPF; Mucus Urine 1+ (Negative)
[2024-12-22 02:28] LABS: Calcium Oxalate Crystals Urine Occasional; Culture Indicated Urine Cult Not Indicated
[2024-12-22 05:06] LABS: Add Manual Diff / Slide Review NO; Basophils Absolute Auto 0 /uL (0-100); Basophils Percent Auto 0.2 % (0-2); Eosinophils Absolute Auto 0 /uL (0-450); Eosinophils Percent Auto 0.5 % (2-4); Hematocrit 38.3 % (36-46); Hemoglobin 12.9 g/dL (12.0-16.0); Lymphocytes Absolute Auto 600 /uL (1100-4500); Mean Corpuscular HGB Conc 33.7 % (30-36); Mean Corpuscular Hemoglobin 31.1 PG (26-34); Mean Corpuscular Volume 92.2 fL (80-100); Monocytes Absolute Auto 400 /uL (0-900); Monocytes Percent Auto 7.6 % (3-14); Neutrophils Absolute Auto 4800 /uL (1500-7000); Neutrophils Percent Auto 81.7 % (50-75); Platelet Count 229 X10^3/uL (150-400); Red Blood Cell Count 4.16 X10^6/uL (4.0-5.2); Red Cell Distribution Width 14.8 % (11.6-14.8); White Blood Cell Count 5.8 X10^3/uL (4.5-11.0)
[2024-12-22 05:16] LABS: Alanine Aminotransferase 41 IU/L (<35); Albumin 3.9 g/dL (3.5-5.0); Albumin Globulin Ratio 1.4 (1.0-2.8); Alkaline Phosphatase 45 U/L (38-126); Aspartate Aminotransferase 35 IU/L (14-36); BUN Creatinine Ratio 33.9 (6-22); Bilirubin Total 0.6 mg/dL (0.2-1.3); Blood Urea Nitrogen 20 mg/dL (7-17); Calcium 8.8 mg/dL (8.4-10.2); Carbon Dioxide 15 mmol/L (22-32); Chloride 111 mmol/L (98-107); Estimated Glomerular Filt Rate > 60 mL/min (>60); Globulin 2.8 g/dL (1.7-4.1); Glucose 110 mg/dL (80-110); HEMOLYSIS 19 (0-50); Magnesium 1.7 mg/dL (1.6-2.3); Potassium 4.1 mmol/L (3.4-5.1); Sodium 138 mmol/L (137-145); Total Protein 6.7 g/dL (6.3-8.2)
[2024-12-22 05:27] LABS: Troponin I 0.036 ng/mL (0.01-0.034)
--- NOTE | 2024-12-22 06:16 | PC.NURSE ---
Senior Portfolio Manager Note-Patient has been A/O x3, forgetful of date few times, but oriented to place and situation although does not understand the seriousness of A-fib RVR and requiring diltiazen gtt for rate control. At 2300, patient wanted to leave AMA and have a friend pick her up. After phoning her friend, Karen Gray several times, she was able to talk her into coming to the hospital. I informed the night Hospitalist. By the time her friend arrived around midnight, the patient agreed to stay until morning She remained on diltiazem at 5mg/hr overnight, HR 100-120s, BP stable-see vital trends, denied chest pain, but stated she did feel off had mild nausea, Zofran given and was lightheaded first time up to BSC. All had resolved by morning. UAC sent for dark cloudy urine, NS started at 100ml/hr.
[2024-12-22] MEDS: APIXABAN 5 MG TABLET 2.5 MG PO (08:15)
[2024-12-22] MEDS: METOPROLOL IR 25 MG TABLET PO ×3 (08:15→23:54)
[2024-12-22] MEDS: LEVOTHYROXINE 88 MCG TABLET PO (08:16)
[2024-12-22] MEDS: SODIUM CHLORIDE 0.9% FLUSH 10 ML IV ×2 (08:21→22:36)
[2024-12-22] MEDS: diazePAM 5 MG TABLET PO ×2 (08:43→19:00)
--- NOTE | 2024-12-22 10:26 | DI.MRI.S_ITS ---
PROCEDURE: MR HEAD/BRAIN WO CON INDICATIONS: TIA vs CVA TECHNIQUE: Non-contrast axial T1 spin echo, axial T2 fast spin echo, sagittal and axial FLAIR, coronal T2 fast spin echo, axial gradient echo, axial diffusion and ADC through the brain. COMPARISON: [facility], CT, CT HEAD/BRAIN WO CON, 12/21/2024, 12:52. FINDINGS: Image quality: Excellent. CSF spaces: Ventricles appear symmetric in size and shape. Basal cisterns are patent. No extra-axial fluid collections. Brain: No intracranial bleeds or mass effects. There is cerebral volume loss for age. There are mild, age-appropriate periventricular and deep white matter chronic small vessel ischemic changes. Brainstem appears normal. Diffusion-weighted images show no acute infarct. No chronic ischemic insults. Normal intravascular flow voids are present. Skull and face: Calvarial bone marrow is normal in signal. Orbits are normal. Sinuses: Sinuses and mastoids are clear. IMPRESSION: No acute intracranial process. Dictated by: Magno Cedillo M.D. on 12/22/2024 at 10:47 Approved by: Magno Cedillo M.D. on 12/22/2024 at 10:50
[2024-12-22 11:36] LABS: Troponin I 0.026 ng/mL (0.01-0.034)
--- NOTE | 2024-12-22 15:39 | CM.DANOTE ---
Initial DCP Assessment Visit Note Reviewed EMR and team rounds for status updates. Met with pt and her friend/cg to introduce self and role, pt was found to be alert/oriented, and was back to her baseline mentation. Pt resides modified independently in her own home here in [place]. She has 2-close friends who provide assistance and cg needs to her as needed, the will also transport her home at time of d/c. Payor: Medicare PCP: Dr. Major Pt is a 84 year-old F who presented to the ED with c/o R-jip pain (chronic for the last 2-years), was demonstrating neuro deficits consistent with possible stroke, and chest pain. EKG showed new onset of Afib w/RVR, hip x-ray did not show any abnormalities or fractures. She was started on a diltiazem drip for rate control, and admitted for further heart monitoring and eval. ECHO completed, still on a Dilt drip today. Pt did share that she had been receiving OP PT, but has not been seen recently. She may need Home Health PT at d/c, however PT/OT evals and final recommendations are pending. DCP will continue to follow and assist with final d/c need/recs. Discharge Planning/Care Management CM Discharge Assessment Start: 12/22/24 15:37 Freq: Status: Active Protocol: Document 12/22/24 15:37 DPL (Rec: 12/22/24 15:39 DPL [id number]) Discharge Planning Assessment Assigned Crop Picker VIDA Randolph Advance Directives? Yes: Advance Directive:POLST Advance Directives on File Yes History Provided By Patient,Friend,Medical Record Has Patient been admitted in last 30 No days? Prior Living Arrangements House Household Members none Type of transporation used prior to Drives own vehicle admit Independent with ADL's No: modified independent with walking sticks Is patient alert and oriented? Yes Comment N/A Caregiver for Another No Comment N/a Comment walking sticks Comment May need Home Health for PT. Pending PT/OT eval and final recommendations. Barriers to Discharge No Discharge Plan Home Community Services Physical Therapy Transportation Arrangement Friend Referrals Initiated Home Health Additional Comment Pending final recommendations. If patient plan is home with home health No : Has signed face to face form been completed? Whiteboard Updated in Patient Room with Yes name and ext. # of Crop Picker Review Status In Process Please Provide Date Initial DC 12/22/24 Assessment Was Performed
--- NOTE | 2024-12-22 15:48 | P.PN_ITS ---
Subjective Subjective Interval history: 84 year old female admitted with afib with RVR. Rate improved today. No complaints of chest pain or shortness of breath. Exam Vital Signs (past 8 hours): - 12/22/24 08:00 12/22/24 08:01 12/22/24 09:00 Pulse Rate 116 H 88 Respiratory Rate 21 13 Blood Pressure 145/81 H Pulse Oximetry 94 12/22/24 09:01 12/22/24 09:01 12/22/24 09:30 Pulse Rate 85 80 Respiratory Rate 14 17 Blood Pressure 103/56 L Pulse Oximetry 12/22/24 10:35 12/22/24 11:00 12/22/24 11:30 Pulse Rate 92 H 84 95 H Respiratory Rate 19 16 16 Blood Pressure Pulse Oximetry 12/22/24 12:00 12/22/24 12:30 12/22/24 13:00 Pulse Rate 96 H 95 H 112 H Respiratory Rate 18 15 24 Blood Pressure Pulse Oximetry 12/22/24 13:30 12/22/24 13:39 12/22/24 13:39 Pulse Rate 112 H 101 H Respiratory Rate 14 16 Blood Pressure 137/56 L Pulse Oximetry Oxygen Delivery Method Room Air Oxygen Flow Rate 0 Narrative Exam Narrative: GENERAL: This is a well-nourished, well-developed patient, in no apparent distress. HEAD: Atraumatic. Normocephalic. No temporal or scalp tenderness. EYES: Pupils equal round and reactive. Extraocular motions intact. No scleral icterus. No injection or drainage. ENT: Mucous membranes pink and moist. NECK: Trachea midline. No JVD, bruits or lymphadenopathy. Supple, nontender, no meningeal signs. CARDIOVASCULAR: Irregularly irregular, tachycardic without murmurs, gallops, or rubs. RESPIRATORY: Clear to auscultation. GASTROINTESTINAL: Abdomen soft, non-tender, nondistended. EXTREMITIES: No clubbing, cyanosis, or edema. BACK: Nontender without deformity or crepitance. No flank tenderness. MSK: Right leg nontender, no calf swelling, no rash or skin lesions, full range of motion right ankle, knee and hip. NEUROLOGIC: Alert, oriented, speech fluent, full upper and lower motor strength, no focal deficits evident. DERMATOLOGIC: No rashes or skin lesions. Objective Labs 12/22/24 04:47 12/22/24 04:47 Labs: Laboratory Results - last 24 hr 12/21/24 12/22/24 12/22/24 22:20 02:00 04:47 WBC 5.8 RBC 4.16 Hgb 12.9 Hct 38.3 MCV 92.2 MCH 31.1 MCHC 33.7 RDW 14.8 Plt Count 229 Neut % (Auto) 81.7 H Lymph % (Auto) 10.0 L [place] % (Auto) 7.6 Eos % (Auto) 0.5 L Baso % (Auto) 0.2 Neut # (Auto) 4800 Lymph # (Auto) 600 L [place] # (Auto) 400 Eos # (Auto) 0 Baso # (Auto) 0 Sodium 138 Potassium 4.1 Chloride 111 H Carbon Dioxide 15 L BUN 20 H Creatinine 0.59 Estimated GFR > 60 BUN/Creatinine Ratio 33.9 H Glucose 110 Calcium 8.8 Magnesium 1.7 Total Bilirubin 0.6 AST 35 ALT 41 H Alkaline Phosphatase 45 Troponin I 0.036 H Total Protein 6.7 Albumin 3.9 Globulin 2.8 Albumin/Globulin Ratio 1.4 Urine Color Dark yellow Urine Appearance Sl cloudy Urine pH 5.5 Ur Specific [place] 1.025 Urine Protein 2+ H Urine Glucose (UA) Negative Urine Ketones 2+ H Urine Occult Blood 3+ H Urine Nitrate Negative Urine Bilirubin 1+ H Ur Bilirubin Confirm Negative Urine Urobilinogen 0.2 Ur Leukocyte Esterase Negative Urine RBC 30-100/hpf H Urine WBC 1-5/hpf Ur Squamous Epith Cells 1-5 /hpf Calcium Oxalate Crystal Occasional H Urine Bacteria Moderate (10-30) H Hyaline Casts 0-1/lpf Urine Mucus 1+ H Ur Culture Indicated? Cult not indicated Vol Urine Centrifuged 10ml (spun) Nasal Screen MRSA (PCR) Not detected 12/22/24 11:00 WBC RBC Hgb Hct MCV MCH MCHC RDW Plt Count Neut % (Auto) Lymph % (Auto) [place] % (Auto) Eos % (Auto) Baso % (Auto) Neut # (Auto) Lymph # (Auto) [place] # (Auto) Eos # (Auto) Baso # (Auto) Sodium Potassium Chloride Carbon Dioxide BUN Creatinine Estimated GFR BUN/Creatinine Ratio Glucose Calcium Magnesium Total Bilirubin AST ALT Alkaline Phosphatase Troponin I 0.026 Total Protein Albumin Globulin Albumin/Globulin Ratio Urine Color Urine Appearance Urine pH Ur Specific [place] Urine Protein Urine Glucose (UA) Urine Ketones Urine Occult Blood Urine Nitrate Urine Bilirubin Ur Bilirubin Confirm Urine Urobilinogen Ur Leukocyte Esterase Urine RBC Urine WBC Ur Squamous Epith Cells Calcium Oxalate Crystal Urine Bacteria Hyaline Casts Urine Mucus Ur Culture Indicated? Vol Urine Centrifuged Nasal Screen MRSA (PCR) [facility] Medical History Acquired hypothyroidism Acute cystitis with hematuria Adhesive capsulitis of left shoulder Do not resuscitate Menopausal syndrome Mixed hyperlipidemia Primary osteoarthritis involving multiple joints SVT (supraventricular tachycardia) Tendonitis of left rotator cuff Social History details: (Gerard) 2019, son age 51 prostate cancer household members: none Smoking Status: Never smoker alcohol intake: never Assessment & Plan Assessment & Plan narrative: 1. New onset atrial fibrillation with rapid ventricular response. Admit to ICU, continue IV diltiazem infusion, monitor serial cardiac enzymes, obtain echocardiogram, and follow clinically. 2. Recent aphasia and dysarthria, likely TIA in the past week due to 1. Treat with anticoagulation. 3. Right leg pain, ruled out DVT. 4. Hypothyroidism. TSH was in range on 10/20/2024 5. Hyperlipidemia. Declined statins. 6. Acute systolic heart failure 7. DVT prophylaxis: To be addressed on anticoagulation as above. 8. Code status: Do not resuscitate. The patient affirms this wish today and has a POLST form in the chart. Resolved - elevated troponin, myocardial injury Plan: -wean from diltiazem infusion -start oral metoprolol -TTE with new acute systolic heart failure, EF of 30-35% -MRI for rule out of CVA given delayed presentation was negative. -etiology for her metabolic acidosis (bicarb 15) not entirely clear. repeat labs tomorrow. -eliquis for anticoagulation. Patient is admitted inpatient status as she will require at least 2 midnights of inpatient level care. Time-Based Coding :: [TOTAL MINUTES] spent with patient and on the chart (including review of chart, obtaining history, exam, reviewing outside data, placing orders, documenting exam and treatment plan, and counseling patient) on [DATE].
[2024-12-22] MEDS: HYDROCODONE/ACET 5/325 TABLET 1 TAB PO (19:00)
[2024-12-22] MEDS: HALOPERIDOL 5 MG/ML VIAL 2 MG IV (22:29)
[2024-12-23] VITALS (42 sets, daily range): BP systolic 65–126; BP diastolic 42–82; PULSE 100–149; RESP 10–21; TEMP 36.2–36.8; O2SAT 88–100
[2024-12-23] MEDS: HALOPERIDOL 5 MG/ML VIAL 2 MG IV ×2 (01:48→23:41)
[2024-12-23] MEDS: ACETAMINOPHEN 325 MG TABLET 650 MG PO ×3 (02:01→23:28)
--- NOTE | 2024-12-23 02:10 | PC.NURSE ---
Addendum entered by Roz Franco R.N. 12/23/24 06:44: Patient sleeping, bladder scanned for 412ml. Addendum entered by Roz Franco R.N. 12/23/24 06:15: At 0400, patient woke from a short rest, restless and c/o both hips and legs hurt FLACC 7/10, 0.5mg IV Dilaudid given which was effective, patient able to sleep, HR down to 100, current BP 92/55(67). After pain med given, patient placed on bedpan, but unable to void. Will reassess. Original Note: Director It Project Notes-Patient was confused, initially cooperative and able to follow few directions until 2200, then became very agitated and combative, not wanting to sit on bed or in chair (high fall risk) HR still A-fib increasing up to 150s. Patient was given PO Valium and [place] at 1900, but was refusing to take scheduled PO metoprolol and Eliquis. Night Hospitalist notified, 2mg IV Haldol Q2h prn ordered and given, was effective quickly, patient agreeable to get in bed. Patient rested until midnight, woke to take sips of water, still confused, denied need to use BSC, agreed to take one pill, PO metoprolol given. Woke again at 0200 restless and agitated, HR 130s, IV Haldol given, then patient requested something for back pain, Tylenol given.
[2024-12-23] MEDS: HYDROMORPHONE 0.5 MG INJ IV (03:57)
[2024-12-23] MEDS: LACTATED RINGERS 1,000 ML 1000 ML IV (08:10)
--- NOTE | 2024-12-23 08:26 | PC.NURSE ---
Patient sleeping soundly this morning with bed alarm on. Increased heart rate and low blood pressure noted upon AM vitals, patient assessed, and minimally awakens, but does move all extremities and smiles at this RN. Dr. Yen notified and LR bolus in progress as ordered. BP improving at this time. Continue to follow closely.
[2024-12-23 08:47] LABS: Add Manual Diff / Slide Review NO; Basophils Absolute Auto 100 /uL (0-100); Basophils Percent Auto 0.8 % (0-2); Eosinophils Absolute Auto 0 /uL (0-450); Hematocrit 38.5 % (36-46); Hemoglobin 12.8 g/dL (12.0-16.0); Lymphocytes Absolute Auto 700 /uL (1100-4500); Lymphocytes Percent Auto 9.7 % (25-40); Mean Corpuscular HGB Conc 33.4 % (30-36); Mean Corpuscular Hemoglobin 30.7 PG (26-34); Mean Corpuscular Volume 92.1 fL (80-100); Monocytes Absolute Auto 400 /uL (0-900); Monocytes Percent Auto 6.3 % (3-14); Neutrophils Absolute Auto 5800 /uL (1500-7000); Neutrophils Percent Auto 83.2 % (50-75); Platelet Count 239 X10^3/uL (150-400); Red Blood Cell Count 4.18 X10^6/uL (4.0-5.2); Red Cell Distribution Width 15.5 % (11.6-14.8)
[2024-12-23 09:04] LABS: BUN Creatinine Ratio 28.4 (6-22); Blood Urea Nitrogen 31 mg/dL (7-17); Calcium 8.8 mg/dL (8.4-10.2); Carbon Dioxide 20 mmol/L (22-32); Chloride 108 mmol/L (98-107); Estimated Glomerular Filt Rate 50 mL/min (>60); Glucose 126 mg/dL (80-110); HEMOLYSIS 18 (0-50); Magnesium 1.8 mg/dL (1.6-2.3); Potassium 5.1 mmol/L (3.4-5.1); Sodium 135 mmol/L (137-145)
[2024-12-23] MEDS: LACTATED RINGERS 1,000 ML 200 ML IV ×2 (10:09→16:40)
[2024-12-23] MEDS: METOPROLOL ER 50 MG TABLET PO ×2 (10:09→20:30)
[2024-12-23] MEDS: LEVOTHYROXINE 88 MCG TABLET PO (10:14)
[2024-12-23] MEDS: SODIUM CHLORIDE 0.9% FLUSH 10 ML IV ×2 (10:14→20:30)
[2024-12-23] MEDS: APIXABAN 5 MG TABLET 2.5 MG PO ×2 (10:14→20:30)
--- NOTE | 2024-12-23 11:02 | DIET.CONS ---
Dietary Consultation Note Admission Date: 12/21/2024 14:06 Assessment: 84 y F admitted for afib with RVR. Dietitian screened for low MNA. Per team rounds this morning and RN, pt very sleepy and sleeping soundly. Per information RN has collected from family/friends: pt has had a decline and has not been eating more than a few bites of food recently. Pt does appear to be significantly underweight. Ht: 165.1 cm Wt: 43.998 kg BMI: 16.1 (underweight) UBW: 58.74 kg on 10/29/24 (-25% weight in 2 month, severe), 59.08 kg on 05/19/24 Last BM: 12/19/24 (12/21/24 15:46) MNA: 10 Ganesh Score: 18 Diet: 12/21/24 Dinner Heart Healthy Diet Diet Modifications: Nutrition Percent Meal Consumed 5 12/22/24 18:00 Percent Meal Consumed 50% 12/21/24 18:00 Labs: RBC 4.18 X10^6/uL (4.0-5.2) 12/23/24 08:30 Hgb 12.8 g/dL (12.0-16.0) 12/23/24 08:30 Hct 38.5 % (36-46) 12/23/24 08:30 Creatinine 1.09 mg/dL (0.52-1.04) H 12/23/24 08:30 NT-Pro-B Natriuret Pep 1180 pg/mL (<450) H 12/21/24 13:10 Nutrition Diagnosis: Severe acute Protein Calorie Malnutrition r/t inadequate oral intakes aeb BMI 16.1 (underweight), <50% estimated energy needs in 1 week (severe) and 25% weight loss within 2 months (severe) Interventions: ONS with meals EER: [id number] kcals (30-35 kcals/kg per BMI) 55 g protein (acute HF depleted, PCM, renal) Monitoring/Evaluations: PO intakes, ONS tolerance Electronically Signed by: Cyndy Baldwin 12/23/24 11:02 Clinical Dietitian [address] [address]
[2024-12-23] MEDS: diazePAM 5 MG TABLET 2.5 MG PO (16:25)
--- NOTE | 2024-12-23 16:40 | CM.DPNOTE ---
DCP Note MATH AND PHYSICS INSTRUCTOR reviewed EMR per provider in morning rounds/nursing staff, combative overnight. needed IV haldol. will switch to seroquel tonight. questions on if pt owns at home, unknown as she lives alone. pt out of it during day. Per RN note, pt out of it and high HR and low BP throughout day Unable to meet with pt today due to triaging needs. Medical POC continues. CM team will continue to follow closely for DCP recommendations and assist to coordinate as able. may be good candidate for HH, follow once able to participate in PT/OT. VIDA Benjamin
--- NOTE | 2024-12-23 17:56 | P.PN_ITS ---
Subjective Subjective Interval history: 84 year old female admitted with afib with RVR. Rate slightly worse today, did not eat much and has had minimal urine output. Overnight last night became agitated, required haldol. Seroquel was added this evening. Intermittently hypotensive but responsive to fluid each time with improvement in rate and BP. Discussed with cardiology, recommended transfer for consideration of ANGELICA and cardioversion, however patient refuses transfer at this time. Given improvement in rate and BP, will continue fluids tonight, I asked her to reconsider this prior to initiation of other medications. She denies chest pain, palpitations, shortness of breath. Exam Vital Signs (past 8 hours): - 12/23/24 10:00 12/23/24 10:00 12/23/24 10:03 Temperature Pulse Rate 138 H Respiratory Rate 10 L Blood Pressure 74/53 L 87/60 L Pulse Oximetry 96 Oxygen Delivery Method Oxygen Flow Rate 12/23/24 10:03 12/23/24 10:09 12/23/24 10:19 Temperature Pulse Rate 139 H 149 H 142 H Respiratory Rate 12 14 Blood Pressure 87/60 L 82/64 L Pulse Oximetry 96 89 L Oxygen Delivery Method Oxygen Flow Rate 12/23/24 10:24 12/23/24 10:30 12/23/24 11:00 Temperature 98.0 F Pulse Rate 134 H 139 H Respiratory Rate 15 12 Blood Pressure 90/71 112/82 106/57 L Pulse Oximetry 96 94 Oxygen Delivery Method Oxygen Flow Rate 12/23/24 11:00 12/23/24 12:00 12/23/24 12:00 Temperature Pulse Rate 112 H 125 H Respiratory Rate 11 L 11 L Blood Pressure 92/70 Pulse Oximetry 96 97 Oxygen Delivery Method Oxygen Flow Rate 12/23/24 12:00 12/23/24 12:30 12/23/24 12:30 Temperature Pulse Rate 133 H Respiratory Rate 10 L Blood Pressure 89/51 L Pulse Oximetry 98 Oxygen Delivery Method Room Air Oxygen Flow Rate 12/23/24 13:00 12/23/24 13:30 12/23/24 14:00 Temperature Pulse Rate 104 H 143 H 101 H Respiratory Rate 11 L 21 13 Blood Pressure 101/60 99/73 106/56 L Pulse Oximetry 100 Oxygen Delivery Method Oxygen Flow Rate 0 0 12/23/24 14:47 12/23/24 15:00 12/23/24 15:30 Temperature Pulse Rate 123 H 115 H 103 H Respiratory Rate 15 15 12 Blood Pressure 106/74 97/78 99/63 Pulse Oximetry 97 98 Oxygen Delivery Method Oxygen Flow Rate 12/23/24 16:00 12/23/24 16:00 12/23/24 16:00 Temperature Pulse Rate 100 H Respiratory Rate 12 Blood Pressure 97/55 L Pulse Oximetry Oxygen Delivery Method Room Air Oxygen Flow Rate 12/23/24 16:00 12/23/24 16:31 12/23/24 16:32 Temperature 98.3 F Pulse Rate 108 H 104 H Respiratory Rate 14 17 Blood Pressure 70/43 L Pulse Oximetry 98 Oxygen Delivery Method Oxygen Flow Rate 12/23/24 16:37 12/23/24 16:49 12/23/24 16:49 Temperature Pulse Rate 119 H 111 H Respiratory Rate 17 13 Blood Pressure 72/51 L 98/68 Pulse Oximetry 96 Oxygen Delivery Method Oxygen Flow Rate 12/23/24 17:00 12/23/24 17:00 Temperature Pulse Rate 104 H Respiratory Rate 14 Blood Pressure 95/60 Pulse Oximetry 96 Oxygen Delivery Method Oxygen Flow Rate Oxygen Delivery Method Room Air Oxygen Flow Rate 0 Narrative Exam Narrative: GENERAL: This is a well-nourished, well-developed patient, in no apparent distress. HEAD: Atraumatic. Normocephalic. No temporal or scalp tenderness. EYES: Pupils equal round and reactive. Extraocular motions intact. No scleral icterus. No injection or drainage. ENT: Mucous membranes pink and moist. NECK: Trachea midline. No JVD, bruits or lymphadenopathy. Supple, nontender, no meningeal signs. CARDIOVASCULAR: Irregularly irregular, tachycardic without murmurs, gallops, or rubs. RESPIRATORY: Clear to auscultation. GASTROINTESTINAL: Abdomen soft, non-tender, nondistended. EXTREMITIES: No clubbing, cyanosis, or edema. BACK: Nontender without deformity or crepitance. No flank tenderness. MSK: Right leg nontender, no calf swelling, no rash or skin lesions, full range of motion right ankle, knee and hip. NEUROLOGIC: Alert, oriented, speech fluent, full upper and lower motor strength, no focal deficits evident. DERMATOLOGIC: No rashes or skin lesions. Objective Labs 12/23/24 08:30 12/23/24 08:30 Labs: Laboratory Results - last 24 hr 12/23/24 08:30 WBC 7.0 RBC 4.18 Hgb 12.8 Hct 38.5 MCV 92.1 MCH 30.7 MCHC 33.4 RDW 15.5 H Plt Count 239 Neut % (Auto) 83.2 H Lymph % (Auto) 9.7 L [place] % (Auto) 6.3 Eos % (Auto) 0.0 L Baso % (Auto) 0.8 Neut # (Auto) 5800 Lymph # (Auto) 700 L [place] # (Auto) 400 Eos # (Auto) 0 Baso # (Auto) 100 Sodium 135 L Potassium 5.1 Chloride 108 H Carbon Dioxide 20 L BUN 31 H Creatinine 1.09 H Estimated GFR 50 L BUN/Creatinine Ratio 28.4 H Glucose 126 H Calcium 8.8 Magnesium 1.8 PFSH Medical History Acquired hypothyroidism Acute cystitis with hematuria Adhesive capsulitis of left shoulder Do not resuscitate Menopausal syndrome Mixed hyperlipidemia Primary osteoarthritis involving multiple joints SVT (supraventricular tachycardia) Tendonitis of left rotator cuff Social History details: (Gerard) 2019, son age 51 prostate cancer household members: none Smoking Status: Never smoker alcohol intake: never Assessment & Plan Assessment & Plan narrative: 1. New onset atrial fibrillation with rapid ventricular response. 2. Recent aphasia and dysarthria, likely TIA in the past week due to 1. Treat with anticoagulation. 3. Right leg pain, ruled out DVT. 4. Hypothyroidism. TSH was in range on 10/20/2024 5. Hyperlipidemia. Declined statins. 6. Acute systolic heart failure 7. DVT prophylaxis: To be addressed on anticoagulation as above. 8. Code status: Do not resuscitate. The patient affirms this wish today and has a POLST form in the chart. Resolved - elevated troponin, myocardial injury Plan: -weaned from diltiazem infusion, now off. Avoid with newly reduced EF. -started oral metoprolol, now 50 mg succinate BID. -TTE with new acute systolic heart failure, EF of 30-35% -MRI for rule out of CVA given delayed presentation and stroke vs encephalopathy type symptoms was negative. -etiology for her metabolic acidosis (bicarb 15) not entirely clear but improving today with bicarb up to 20. Continue IV fluids. -eliquis for anticoagulation. -discussed with it help desk associate today given elevated rates and soft BPs today, recommended transfer for ANGELICA and cardioversion, however patient refuses this evening for transfer. Given her current improvement in rate and BP with fluids, will continue IV fluids tonight as this does appear to be helping. However if recurrent or starts to develop HF symptoms with fluid will need repeat discussion regarding transfer. Patient is admitted inpatient status to the ICU for continued RVR, she will require at least 2 midnights of inpatient level care. Remains ICU until rate cnotrol is improved I spent 30 minutes providing critical care management this patient. This excludes time spent in performing separately billed procedures. Time-Based Coding :: [TOTAL MINUTES] spent with patient and on the chart (including review of chart, obtaining history, exam, reviewing outside data, placing orders, documenting exam and treatment plan, and counseling patient) on [DATE].
--- NOTE | 2024-12-23 18:53 | PC.NURSE ---
Patient had increased talkativeness and awakeness as shift continued today. Remains confused at times and forgetful, but able to hold pleasant conversations with this RN. Patient had a dear friend of hers (Karen) at the bedside all day, and her POA Pam called and has her number available. AFIB with rates 97 to 130's today, low BP's as charted, but responded to additional IV fluids as ordered by MD. Aragon in place with dark yellow urine, minimal output. Patient states she still has poor appetite, but able to eat 10% of dinner and will sip on water with encouragement. SCD's on. Call light within reach. Bed alarm on for safety.
[2024-12-23] MEDS: QUETIAPINE 25 MG TABLET PO (20:30)
[2024-12-23] MEDS: LACTATED RINGERS 1,000 ML 100 ML IV (21:18)
[2024-12-24] VITALS (25 sets, daily range): BP systolic 83–110; BP diastolic 50–70; PULSE 97–134; RESP 12–19; TEMP 36.4–36.7; O2SAT 73–100
[2024-12-24] MEDS: HYDROCODONE/ACET 5/325 TABLET 1 TAB PO (00:14)
[2024-12-24] MEDS: HALOPERIDOL 5 MG/ML VIAL 2 MG IV (04:22)
--- NOTE | 2024-12-24 06:04 | PC.NURSE ---
rn dialysis note pt was awake on and off overnight, oriented to self and sometimes place, mumbled speech with intermittent aphasia, restless and often pulling at lines and manager cardiac cath, pt removed an IV site, site cleaned and dsg applied, prn haldol given with effect, c/o R hip/leg pain, analgesics given with effect, Afib, when awake 120-150s, when asleep 90-100s, BPs 80-90s/50s, bed alarm on, call eaton within reach, frequent reassurance and orientation provided.
[2024-12-24] MEDS: LACTATED RINGERS 1,000 ML 100 ML IV ×2 (06:25→16:35)
[2024-12-24 07:51] LABS: Add Manual Diff / Slide Review NO; Basophils Absolute Auto 0 /uL (0-100); Basophils Percent Auto 0.3 % (0-2); Eosinophils Absolute Auto 100 /uL (0-450); Eosinophils Percent Auto 0.9 % (2-4); Hematocrit 38.4 % (36-46); Lymphocytes Absolute Auto 1200 /uL (1100-4500); Lymphocytes Percent Auto 14.8 % (25-40); Mean Corpuscular HGB Conc 33.8 % (30-36); Mean Corpuscular Hemoglobin 30.6 PG (26-34); Mean Corpuscular Volume 90.8 fL (80-100); Monocytes Absolute Auto 600 /uL (0-900); Neutrophils Absolute Auto 6000 /uL (1500-7000); Platelet Count 236 X10^3/uL (150-400); Red Blood Cell Count 4.23 X10^6/uL (4.0-5.2); Red Cell Distribution Width 15.6 % (11.6-14.8); White Blood Cell Count 7.9 X10^3/uL (4.5-11.0)
[2024-12-24 08:06] LABS: Blood Urea Nitrogen 34 mg/dL (7-17); Calcium 8.5 mg/dL (8.4-10.2); Carbon Dioxide 19 mmol/L (22-32); Chloride 106 mmol/L (98-107); Estimated Glomerular Filt Rate > 60 mL/min (>60); Glucose 101 mg/dL (80-110); HEMOLYSIS < 15 (0-50); Magnesium 1.6 mg/dL (1.6-2.3); Potassium 4.3 mmol/L (3.4-5.1); Sodium 132 mmol/L (137-145)
[2024-12-24] MEDS: LEVOTHYROXINE 88 MCG TABLET PO (09:12)
[2024-12-24] MEDS: METOPROLOL ER 50 MG TABLET PO (11:10)
[2024-12-24] MEDS: APIXABAN 5 MG TABLET 2.5 MG PO (11:11)
[2024-12-24] MEDS: SODIUM CHLORIDE 0.9% FLUSH 10 ML IV (11:12)
--- NOTE | 2024-12-24 14:20 | P.PN_ITS ---
Subjective Subjective Interval history: 84 year old female admitted with afib with RVR. Rate is still generally in the 110s, intermittently faster and slower. Intermittently hypotensive but responsive to fluid each time with improvement in rate and BP. Stable with similar vitals today on IV fluids. Discussed with cardiology, recommended transfer for consideration of ANGELICA and cardioversion, patient initially refused but now agreeable for transfer after discussion this morning. She denies chest pain, palpitations, shortness of breath. Exam Vital Signs (past 8 hours): - 12/24/24 07:00 12/24/24 07:00 12/24/24 08:00 Temperature 97.6 F Pulse Rate 104 H Respiratory Rate 16 Blood Pressure 99/63 90/52 L Pulse Oximetry Oxygen Delivery Method 12/24/24 08:00 12/24/24 08:00 12/24/24 09:00 Temperature Pulse Rate 103 H Respiratory Rate 16 Blood Pressure 94/63 Pulse Oximetry Oxygen Delivery Method Room Air 12/24/24 09:00 12/24/24 09:25 12/24/24 09:25 Temperature Pulse Rate 109 H 104 H Respiratory Rate 13 14 Blood Pressure 93/53 L Pulse Oximetry Oxygen Delivery Method 12/24/24 10:00 12/24/24 11:00 12/24/24 11:00 Temperature Pulse Rate 100 H 98 H Respiratory Rate 18 18 Blood Pressure 103/66 Pulse Oximetry 99 97 Oxygen Delivery Method 12/24/24 11:10 12/24/24 12:00 12/24/24 12:00 Temperature Pulse Rate 106 H 97 H Respiratory Rate 16 Blood Pressure 103/65 Pulse Oximetry 96 Oxygen Delivery Method Room Air 12/24/24 12:00 12/24/24 12:00 12/24/24 12:14 Temperature 98.1 F Pulse Rate 107 H Respiratory Rate Blood Pressure 110/64 110/64 Pulse Oximetry Oxygen Delivery Method 12/24/24 13:00 12/24/24 13:00 12/24/24 14:00 Temperature Pulse Rate 97 H 100 H Respiratory Rate 17 13 Blood Pressure 93/63 Pulse Oximetry 73 L 100 Oxygen Delivery Method 12/24/24 14:00 Temperature Pulse Rate Respiratory Rate Blood Pressure 95/63 Pulse Oximetry Oxygen Delivery Method Oxygen Delivery Method Room Air Oxygen Flow Rate 0 Narrative Exam Narrative: GENERAL: This is a well-nourished, well-developed patient, in no apparent distress. HEAD: Atraumatic. Normocephalic. No temporal or scalp tenderness. EYES: Pupils equal round and reactive. Extraocular motions intact. No scleral icterus. No injection or drainage. ENT: Mucous membranes pink and moist. NECK: Trachea midline. No JVD, bruits or lymphadenopathy. Supple, nontender, no meningeal signs. CARDIOVASCULAR: Irregularly irregular, tachycardic without murmurs, gallops, or rubs. RESPIRATORY: Clear to auscultation, but shallow GASTROINTESTINAL: Abdomen soft, non-tender, nondistended. EXTREMITIES: No clubbing, cyanosis, or edema. BACK: Nontender without deformity or crepitance. No flank tenderness. MSK: Right leg nontender, no calf swelling, no rash or skin lesions, full range of motion right ankle, knee and hip. NEUROLOGIC: Alert, oriented, speech fluent, full upper and lower motor strength, no focal deficits evident. DERMATOLOGIC: No rashes or skin lesions. Objective Labs 12/24/24 07:33 12/24/24 07:33 Labs: Laboratory Results - last 24 hr 12/24/24 07:33 WBC 7.9 RBC 4.23 Hgb 13.0 Hct 38.4 MCV 90.8 MCH 30.6 MCHC 33.8 RDW 15.6 H Plt Count 236 Neut % (Auto) 76.0 H Lymph % (Auto) 14.8 L [place] % (Auto) 8.0 Eos % (Auto) 0.9 L Baso % (Auto) 0.3 Neut # (Auto) 6000 Lymph # (Auto) 1200 [place] # (Auto) 600 Eos # (Auto) 100 Baso # (Auto) 0 Sodium 132 L Potassium 4.3 Chloride 106 Carbon Dioxide 19 L BUN 34 H Creatinine 0.85 Estimated GFR > 60 BUN/Creatinine Ratio 40.0 H Glucose 101 Calcium 8.5 Magnesium 1.6 [facility] Medical History Acquired hypothyroidism Acute cystitis with hematuria Adhesive capsulitis of left shoulder Do not resuscitate Menopausal syndrome Mixed hyperlipidemia Primary osteoarthritis involving multiple joints SVT (supraventricular tachycardia) Tendonitis of left rotator cuff Social History details: (Gerard) 2020, son age 51 prostate cancer household members: none Smoking Status: Never smoker alcohol intake: never Assessment & Plan Assessment & Plan narrative: 1. New onset atrial fibrillation with rapid ventricular response. 2. Recent aphasia and dysarthria, likely TIA in the past week due to 1. Treat with anticoagulation. 3. Right leg pain, ruled out DVT. 4. Hypothyroidism. TSH was in range on 10/20/2024 5. Hyperlipidemia. Declined statins. 6. Acute systolic heart failure 7. DVT prophylaxis: To be addressed on anticoagulation as above. 8. Code status: Do not resuscitate. The patient affirms this wish today and has a POLST form in the chart. Resolved - elevated troponin, myocardial injury Plan: -weaned from diltiazem infusion, now off. Avoid with newly reduced EF. -started oral metoprolol, now 50 mg succinate BID. Limited by BP currently. -TTE with new acute systolic heart failure, EF of 30-35% -MRI for rule out of CVA given delayed presentation and stroke vs encephalopathy type symptoms was negative for stroke. -etiology for her metabolic acidosis (bicarb 15) not entirely clear but improved to 19-20 the last few days. Continue IV fluids. -eliquis for anticoagulation. -discussed with spray foam installer today given elevated rates and soft BPs today, recommended transfer for ANGELICA and cardioversion, initially patient did not want to transfer hospitals, but this morning she wants to continue to improve so she is agreeable for ANGELICA and cardioversion after further discussion. -continue IV fluids to maintain BP at this time -started on apixaban 2.5 mg BID for her age and weight. Patient is admitted inpatient status to the ICU for continued RVR, she will require at least 2 midnights of inpatient level care. Remains ICU until rate improved. Pending transfer to higher level facility. I spent 30 minutes providing critical care management this patient. This excludes time spent in performing separately billed procedures. Time-Based Coding :: [TOTAL MINUTES] spent with patient and on the chart (including review of chart, obtaining history, exam, reviewing outside data, placing orders, documenting exam and treatment plan, and counseling patient) on [DATE].
--- NOTE | 2024-12-24 17:08 | PM.DS.1 ---
History of Present Illness History of Present Illness Date Patient Seen: 12/24/24 Time Patient Seen: 17:09 Chief complaint: left hip and right knee pain- took lots of NSAIDS Narrative: 84-year-old woman under the primary care of Dr. Lex Major experienced an episode of slurred speech and word-finding difficulty last week according to her friend Karen, presents in the emergency department today. This resolved completely and she presented to the emergency department today because of right leg pain for which she took [id number] anti-inflammatories without relief. She was found to be in atrial fibrillation with rapid ventricular response with heart rates in the 150s. Given recent neurologic symptoms she underwent brain imaging showing no evidence of acute stroke, and currently denies any further neurologic symptoms, with an NIHSS score of 0. She notes mild chest pressure and sense of palpitations. She has a longstanding history of intermittent palpitations that have been diagnosed as SVT, for which he is taken diazepam 5 mg as needed intermittently for many years, with previous evaluations failing to demonstrate atrial fibrillation. She was started on a diltiazem infusion in the emergency department. Ultrasound of the right leg is pending. Discharge Providers Provider Date of admission: 12/21/24 14:06 Discharge Date: 12/24/24 Primary care physician: Lex Major MD Discharge provider: Patrick Yen DO Summary Hospital Course Discharge Diagnosis: 1. New onset atrial fibrillation with rapid ventricular response. 2. Acute metabolic encephalopathy, hospital delirium 3. Right leg pain, ruled out DVT. 4. Hypothyroidism. TSH was in range on 10/20/2024 5. Hyperlipidemia. Declined statins. 6. Acute systolic heart failure 7. Hypomagnesemia 8. Code status: Do not resuscitate. The patient is otherwise full treatment including brief trial of intubation but does not want to be permanently on a ventilatory. Resolved - elevated troponin, myocardial injury Hospital Course: This is an 84-year-old female with a past medical history of hypothyroidism and hyperlipidemia who actually presented to the emergency room with right knee pain, which has since resolved but she also complained of shortness of breath and intermittent palpitations over the past few months. She also reported slurred speech without any focal weakness about a week prior to presentation. On presentation to the emergency room she was in a rapid supraventricular rhythm in the 150s, ultimately found to be atrial fibrillation with rapid ventricular response. She was initially on a diltiazem infusion which was weaned off fairly quickly after initiation of metoprolol succinate after her echocardiogram showed a newly reduced ejection fraction of 30-35%. She did have a mild troponin bump on presentation to a max of 0.036 which then downtrended. She had no evidence ischemia on EKGs and denied chest pain. Metoprolol succinate was increased to 50 mg twice a day but further increases have been limited due to soft blood pressures. She was started on 2.5 mg of apixaban twice a day for anticoagulation. Starting on December 23 the patient became borderline hypotensive with more rapid rates, each time improved with small fluid boluses. Her blood pressure has been stable in the 90s over 60s range since then with continuous fluid, and her heart rate has been sustained in the 110 range as well. She has not been eating or drinking much since her episode of hospital delirium, she denies any cough, shortness of breath, lower extremity edema. Urinalysis was negative for infection and initial chest x-ray did not show signs of fluid overload or infection as well. The patient has been afebrile since admission. On the evening of December 23 I discussed with the toll service observer who recommended transfer for ANGELICA and cardioversion along with Cardiology consultation, but initially the patient did not agree to transfer. Her rate was consistently in the low 110s at that time with blood pressures as noted above, so this was revisited the following morning. In the morning after further discussion the patient was agreeable for transfer. Rediscussed with Dr. Santana, also recommended transfer for ANGELICA and cardioversion. Her hospital course was complicated by an episode of hospital delirium on hospital day 2 (dec 22) requiring Haldol overnight by the overnight tele hospitalist. She does have chronic anxiety and is taking diazepam chronically BID prn at home which may have contributed to this delirium as well. She was then started on Seroquel the following evening with improvement in her mentation is much improved today. TSH was unremarkable on admission at 0.9. And her potassium on the morning of transfer was 4.3, magnesium was 1.6 and she was repleted with 2 g of IV magnesium. Case was discussed but Dr. Mary at [facility], accepted for transfer on the evening on 12/24/2024. Time Spent with Patient Time spent: Greater than 30 minutes Exam Vital Signs (past 8 hours): - 12/24/24 09:25 12/24/24 09:25 12/24/24 10:00 Temperature Pulse Rate 104 H 100 H Respiratory Rate 14 18 Blood Pressure 93/53 L Pulse Oximetry 99 Oxygen Delivery Method 12/24/24 11:00 12/24/24 11:00 12/24/24 11:10 Temperature Pulse Rate 98 H 106 H Respiratory Rate 18 Blood Pressure 103/66 103/65 Pulse Oximetry 97 Oxygen Delivery Method 12/24/24 12:00 12/24/24 12:00 12/24/24 12:00 Temperature Pulse Rate 97 H Respiratory Rate 16 Blood Pressure 110/64 Pulse Oximetry 96 Oxygen Delivery Method Room Air 12/24/24 12:00 12/24/24 12:14 12/24/24 13:00 Temperature 98.1 F Pulse Rate 107 H Respiratory Rate Blood Pressure 110/64 93/63 Pulse Oximetry Oxygen Delivery Method 12/24/24 13:00 12/24/24 14:00 12/24/24 14:00 Temperature Pulse Rate 97 H 100 H Respiratory Rate 17 13 Blood Pressure 95/63 Pulse Oximetry 73 L 100 Oxygen Delivery Method 12/24/24 16:00 Temperature Pulse Rate Respiratory Rate Blood Pressure Pulse Oximetry Oxygen Delivery Method Room Air Oxygen Delivery Method Room Air Oxygen Flow Rate 0 Narrative Exam Narrative: GENERAL: This is a well-nourished, well-developed patient, in no apparent distress. HEAD: Atraumatic. Normocephalic. No temporal or scalp tenderness. EYES: Pupils equal round and reactive. Extraocular motions intact. No scleral icterus. No injection or drainage. ENT: Mucous membranes pink and moist. NECK: Trachea midline. No JVD, bruits or lymphadenopathy. Supple, nontender, no meningeal signs. CARDIOVASCULAR: Irregularly irregular, tachycardic without murmurs, gallops, or rubs. RESPIRATORY: Clear to auscultation, but shallow GASTROINTESTINAL: Abdomen soft, non-tender, nondistended. EXTREMITIES: No clubbing, cyanosis, or edema. BACK: Nontender without deformity or crepitance. No flank tenderness. MSK: Right leg nontender, no calf swelling, no rash or skin lesions, full range of motion right ankle, knee and hip. NEUROLOGIC: Alert, oriented, speech fluent, full upper and lower motor strength, no focal deficits evident. DERMATOLOGIC: No rashes or skin lesions. Objective Labs 12/24/24 07:33 12/24/24 07:33 Labs: Laboratory Results - last 24 hr 12/24/24 07:33 WBC 7.9 RBC 4.23 Hgb 13.0 Hct 38.4 MCV 90.8 MCH 30.6 MCHC 33.8 RDW 15.6 H Plt Count 236 Neut % (Auto) 76.0 H Lymph % (Auto) 14.8 L [place] % (Auto) 8.0 Eos % (Auto) 0.9 L Baso % (Auto) 0.3 Neut # (Auto) 6000 Lymph # (Auto) 1200 [place] # (Auto) 600 Eos # (Auto) 100 Baso # (Auto) 0 Sodium 132 L Potassium 4.3 Chloride 106 Carbon Dioxide 19 L BUN 34 H Creatinine 0.85 Estimated GFR > 60 BUN/Creatinine Ratio 40.0 H Glucose 101 Calcium 8.5 Magnesium 1.6 PFSH Medical History Acquired hypothyroidism Acute cystitis with hematuria Adhesive capsulitis of left shoulder Do not resuscitate Menopausal syndrome Mixed hyperlipidemia Primary osteoarthritis involving multiple joints SVT (supraventricular tachycardia) Tendonitis of left rotator cuff Social History details: (Gerard) 2020, son age 51 prostate cancer household members: none Smoking Status: Never smoker alcohol intake: never Discharge Plan Discharge Plan Patient Disposition: [facility] Under care of provider: Dr. Mary Provider Discharge Comment: See transfer / discharge summary. Discharge Health Status Multidrug resistant organism: No MDRO Precautions: [place] Diet/Activity/Treatments Diet: Diet as Tolerated Liquid consistency: Normal/Thin Food texture: Regular Activity: No restrictions. Discharge Data Primary Care Provider: Lex Major V
--- NOTE | 2024-12-24 17:54 | PC.NURSE ---
Pt stable throughout shift, remains in a fib rate around 100-120's. Pt to transfer to [facility]. Report called to RN at [facility]. CHIARA Orozco, notified prior to transfer. All belongings sent with pt with medical transport team.
== END 2024-12-24 17:59 | disposition short-term general hospital (02) | DRG 308 ==
LOC: ED 14:00 → AC 14:07 → ICU 15:12
PROVIDERS: Internal Medicine; Registered Nurse; Admitting Provider Internal Medicine; Emergency Provider Emergency Medicine; Family Provider Internal Medicine; PCP Internal Medicine; Referring Provider Emergency Medicine; Visit Provider Internal Medicine
DX: I48.91 Unspecified atrial fibrillation (principal); G93.41 Metabolic encephalopathy; I50.21 Acute systolic (congestive) heart failure; I5A Non-ischemic myocardial injury (non-traumatic); I69.820 Aphasia following other cerebrovascular disease; I69.822 Dysarthria following other cerebrovascular disease; M79.604 Pain in right leg; E03.9 Hypothyroidism, unspecified; E78.5 Hyperlipidemia, unspecified; E83.42 Hypomagnesemia; I95.9 Hypotension, unspecified; Z66 Do not resuscitate; Z86.79 Personal history of other diseases of the circulatory system
CPT/HCPCS: 36415; 70450; 70496; 70498; 70551; 71046; 73521; 80048; 80053; 81001; 82550; 83735; 83880; 84484; 85025; 87797; 93005; 93306; 93971; 96365; 99284; 99291; J1171; J1630; J2405; Q9967

== ENCOUNTER 2025-02-24 20:28 | Emergency (ER) | payer MEDICARE, SELFPAY ==
[2024-12-21 15:46] VITALS: BMI 16.1
[2025-02-24] VITALS (8 sets, daily range): BP systolic 125–157; BP diastolic 60–85; PULSE 50–75; RESP 12–19; TEMP 36.6; O2SAT 95–99
--- NOTE | 2025-02-24 20:40 | ED.FALL ---
HPI - Fall General Chief Complaint: Trauma Stated Complaint: GLF Time Seen by Provider: 02/24/25 20:37 History of Present Illness HPI Narrative: 84-year-old female with past medical history of hypothyroidism AFib on Eliquis presents to the emergency department from [facility] for fall. She states that she was walking with her walker which is her baseline her foot caught a basket and she fell forward hitting her face, denies LOC, on time of evaluation patient just complaining of pain to her nose, on exam not actively bleeding she has no tenderness to palpation of any other bony prominences. Not complaining of any other symptoms Related Data Home Medications Medication Instructions Recorded Confirmed naproxen sodium 220 mg tablet 440 mg PO DAILY 05/19/24 12/21/24 (Aleve) Previous Rx's Medication Instructions Recorded Biest/progesterone 6.25/50mg/gm 0.5 g topical DAILY #45 grams 09/26/24 levothyroxine 88 mcg tablet 88 mcg PO DAILY #90 tabs 11/21/24 diazepam 5 mg tablet 5 mg PO BID PRN palpitations #90 12/01/24 tabs amoxicillin 875 mg-potassium 1 tab PO BID 1 week #14 tabs 02/24/25 clavulanate 125 mg tablet Allergies Allergy/AdvReac Type Severity Reaction Status Date / Time codeine AdvReac Severe Vomiting Verified 10/29/24 11:27 Opioids - Morphine Analogues AdvReac Vomiting Verified 10/29/24 11:27 Review of Systems Review of Systems Narrative: General: Positive ground level fall, Denies fever, chills, weight loss HEENT: Nose pain, bleeding nose Denies headache, eye drainage, eye irritation, head trauma, sore throat, voice change Cardiovascular: Denies any chest pain, palpitations, tachycardia Respiratory: Denies any shortness of breath, cough, wheeze, stridor GI/: Denies any abdominal pain, nausea, vomiting, diarrhea, bright red blood per rectum, melanotic stools, urinary frequency, urinary retention, dysuria, hematuria MSK: Denies any joint pain, muscle pains, swelling Skin: Denies any rashes, lesions, discoloration Neuro: Denies any headache, lightheadedness, dizziness, fainting, weakness Psych: Denies SI/HI Patient History Medical History Acquired hypothyroidism Acute cystitis with hematuria Adhesive capsulitis of left shoulder Do not resuscitate Menopausal syndrome Mixed hyperlipidemia Primary osteoarthritis involving multiple joints SVT (supraventricular tachycardia) Tendonitis of left rotator cuff Social History details: (Gerard) Cesar, son age 51 prostate cancer household members: none Smoking Status: Never smoker alcohol intake: never Alcohol type: beer Exam Narrative Exam Narrative: General: Cooperative, well-developed, not in acute distress HEENT: Patient with ecchymosis noted to the nose, no septal hematoma, not actively bleeding Normocephalic, PERRLA, normal sclera, eyelids normal Neck: Active full range of motion, atraumatic Chest: Normal to inspection, negative crepitus, no overlying erythema ecchymosis Respiratory: Normal respiratory effort, not in acute respiratory distress, clear to auscultation bilaterally negative cough, wheeze, tachypnea, rhonchi, rales Cardiology: Regular rate rhythm negative gallop, murmur, rubs GI/: No tenderness to palpation, soft, non rigid, normal to inspection, exam deferred MSK: Full active range of motion in all 4 extremities, atraumatic, no tenderness to palpation of any bony prominences Skin: No rashes or lesions noted Neuro: Alert awake oriented x3, moves all 4 extremities spontaneously, cranial nerves intact, able to answer all questions appropriately follows commands appropriately Psych: Cooperative, negative suicidal or homicidal ideations Initial Vital Signs Initial Vital Signs: Vital Signs Blood Pressure 157/72 H 02/24/25 20:31 Course Orders Ordered: ED Orders 02/24/25 20:39 CT facial bones wo con Stat 02/24/25 20:40 CT cervical spine wo con Stat CT head/brain wo con Stat Discontinued Medications Amoxicillin/Clavulanate Potassium (Amoxicillin/Clav 875/125 Mg) 1 tab PO NOW ONE Stop: 02/24/25 21:29 Last Admin: 02/24/25 22:11 Dose: 1 tab Documented By: SB Vital Signs Vital signs: Vital Signs - 8 hr 02/24/25 20:31 02/24/25 20:34 02/24/25 20:38 Temperature 97.8 F Pulse Rate 63 68 Respiratory Rate 19 Blood Pressure 157/72 H 157/85 H Pulse Oximetry 97 95 Oxygen Delivery Method Room Air Room Air 02/24/25 21:00 Temperature Pulse Rate 64 Respiratory Rate Blood Pressure Pulse Oximetry 97 Oxygen Delivery Method MDM - Fall Differential Diagnosis Differential diagnosis: Likely other (Intracranial hemorrhage, cervical neck fracture, closed head injury, nasal bone fracture, epistaxis) Lab Data Labs: Point of Care Testing Glucose POC [address] scan - head: Radiologist's Impression: [address] [address] [address] Scan Report Signed Patient: Michelle Christian MR#: [id number] : 1940 Acct:[id number] Age/Sex: 84 / F Date of Service: 02/24/25 Loc: ED Accession Number: [id number] Procedure: CT head/brain wo con Ordering Provider: Patrick Chavez D.O. PROCEDURE: CT HEAD/BRAIN WO CON INDICATIONS: Trauma TECHNIQUE: Noncontrast 4.5 mm thick angled axial sections acquired from the foramen magnum to the vertex, with coronal and sagittal reformats. For radiation dose reduction, the following was used: automated exposure control, adjustment of mA and/or kV according to patient size. COMPARISON: [facility], MR, MR HEAD/BRAIN WO CON, 12/22/2024, 10:05. [facility], CT, CT HEAD/BRAIN WO CON, 12/21/2024, 12:52. FINDINGS: Image quality: Diagnostic. CSF spaces: Basal cisterns are patent. No extra-axial fluid collections. The ventricles are symmetric in size and shape. Brain: No intracranial bleeds or masses. There is cerebral volume loss for age, with resultant ventricular and sulcal prominence. There are periventricular and deep white matter chronic small vessel ischemic changes. There is intracranial internal carotid artery atherosclerosis. Skull and face: Calvarium and visualized facial bones appear intact, without suspicious lesions. Sinuses: Visualized sinuses and mastoids are clear. IMPRESSION: 1. No acute intracranial process. 2. Moderate atrophy and chronic microvascular ischemic changes. CT - cervical spine: Radiologist's Impression: [address] [address] [address] Scan Report Signed Patient: Michelle Christian MR#: [id number] : 1940 Acct:[id number] Age/Sex: 84 / F Date of Service: 02/24/25 Loc: ED Accession Number: [id number] Procedure: CT cervical spine wo con Ordering Provider: Patrick Chavez D.O. PROCEDURE: CT CERVICAL SPINE WO CON INDICATIONS: trauma TECHNIQUE: Noncontrast 3 mm thick sections acquired from the skull base to the T4 level. Sagittal and coronal reformats were then constructed. For radiation dose reduction, the following was used: automated exposure control, adjustment of mA and/or kV according to patient size. COMPARISON: None. FINDINGS: Image quality: Excellent. Bones: No fractures or dislocations. Visualized superior ribs are intact. Multilevel degenerative changes. Soft tissues: Prevertebral soft tissues are normal in thickness. No paravertebral hematomas. No apical pneumothoraces. IMPRESSION: No displaced fracture or traumatic subluxation. CT facial: Radiologist's Impression: [place] [address] CT Scan Report Signed Patient: Michelle Christian MR#: [id number] : 1940 Acct:[id number] Age/Sex: 84 / F Date of Service: 02/24/25 Loc: ED Accession Number: [id number] Procedure: CT facial bones wo con Ordering Provider: Patrick Chavez D.O. PROCEDURE: CT FACIAL BONES WO CON INDICATIONS: fall, hit nose TECHNIQUE: Noncontrast 2.5 mm thick axial images acquired from the mandible through the frontal sinuses, with coronal and sagittal reformatting. For radiation dose reduction, the following was used: automated exposure control, adjustment of mA and/or kV according to patient size. COMPARISON: None. FINDINGS: Image quality: Excellent. Bones and teeth: Orbital ramirez are intact. Sinus ramirez show no fracture or deformity. Nasal bones and superior nasal septal fracture is present. Visualized portions of the mandible demonstrate no fractures or subluxation. Zygomatic arches are intact. Pterygoid plates are intact. Visualized portions of the skull base and auditory canals are intact. Sinuses: Paranasal sinuses are aerated, without fluid levels, mucosal thickening, or mucoceles. Mastoid air cells are aerated. Soft tissues: Soft tissue edema overlying the nose.. Vascular: Visualized vascular structures appear normal in the absence of contrast. Bony vascular foramina and canals are intact. IMPRESSION: Nasal bone and proximal nasal septal fractures. MDM Narrative Medical decision making narrative: 84-year-old female with past medical history of hypothyroidism AFib on Eliquis presents for fall from [facility]. Patient states that she was walking with her walker tripped over a basket and fell forward did hit her face denies loss of consciousness, on exam patient with ecchymosis and tenderness to palpation of the nasal bone however no septal hematoma. Not actively bleeding. CT showing just nasal fracture, no other tenderness to palpation of any bony prominences. Patient will be sent home on Augmentin, instructed to follow up with primary care in outpatient setting she verbalized understanding of this and agrees to being discharged home with outpatient follow up Discharge Plan Departure Patient Disposition: Home Clinical Impression: Closed fracture nasal bone, Closed head injury, Ground-level fall Activity Restrictions/Additional Instructions: Please follow up with your primary care doctor Please read the discharge instructions sheet carefully and bring all papers to all doctor follow-up visits, as it may contain information that your doctor may want to see. Disease processes change and evolve, if your symptoms worsen or if you develop any new symptoms that are concerning to you please return for evaluation. Your evaluation today does not show any evidence of any life-threatening/serious illnesses requiring admission to the hospital or surgery. Please follow-up with your doctor for re-evaluation in approximately 1 day. Seek immediate medical attention for any worrisome symptoms. *If you do not have a primary care provider please contact the [facility] Resource line at [phone]. They will ask some questions about your medical history and help get you set up with a doctor in the community. Prescriptions: New amoxicillin-pot clavulanate 875-125 mg tablet 1 tab PO BID 7 Days Qty: 14 0RF No Action Biest/progesterone 6.25/50mg/gm 0.5 g topical DAILY Qty: 45 0RF Rx Instructions: apply 1 pump (0.5gm) topically once daily at rotating sites levothyroxine 88 mcg tablet 88 mcg PO DAILY Qty: 90 3RF diazepam 5 mg tablet 5 mg PO BID PRN (Reason: palpitations) Qty: 90 1RF naproxen sodium [Aleve] 220 mg tablet 440 mg PO DAILY Referrals: Lex Major MD [Primary Care Provider] - Stand Alone Forms: Patient Portal/API/Survey
--- NOTE | 2025-02-24 20:49 | PC.NURSE ---
Pt denies cervical spine tenderness. Awake and alert. Oriented X4. Pt has abrasion to nose. Dried blood noted to hands and nose/lips. Wash cloth used to clean hands and face.
[2025-02-24] MEDS: AMOXICILLIN/CLAV 875/125 MG 1 TAB PO (22:11)
== END 2025-02-24 23:26 | disposition home or self-care (01) ==
PROVIDERS: Emergency Provider Student in an Organized Health Care Education/Training Program; Family Provider Internal Medicine; PCP Internal Medicine
DX: S02.2XXA Fracture of nasal bones, initial encounter for closed fracture (principal); S09.90XA Unspecified injury of head, initial encounter; I48.91 Unspecified atrial fibrillation; Z79.01 Long term (current) use of anticoagulants; W18.30XA Fall on same level, unspecified, initial encounter
CPT/HCPCS: 70450; 70486; 72125; 99284

== ENCOUNTER → 2025-05-20 11:53 | Outpatient (CLI) | payer MEDICARE, SELFPAY ==
[2024-12-21 15:46] VITALS: BMI 16.1
[2025-05-20 12:39] LABS: Hematocrit 39.0 % (36-46); Hemoglobin 13.2 g/dL (12.0-16.0); Mean Corpuscular HGB Conc 33.8 % (30-36); Mean Corpuscular Hemoglobin 34.5 PG (26-34); Mean Corpuscular Volume 102.1 fL (80-100); Platelet Count 238 X10^3/uL (150-400)
[2025-05-20 13:01] LABS: HEMOLYSIS < 15 (0-50); Iron 95 ug/dL (37-170)
[2025-05-20 13:04] LABS: Alanine Aminotransferase 23 IU/L (<35); Albumin 4.4 g/dL (3.5-5.0); Albumin Globulin Ratio 1.3 (1.0-2.8); Alkaline Phosphatase 39 U/L (38-126); Blood Urea Nitrogen 22 mg/dL (7-17); Calcium 9.3 mg/dL (8.4-10.2); Carbon Dioxide 31 mmol/L (22-32); Chloride 102 mmol/L (98-107); Cholesterol 235 mg/dL (140-199); Estimated Glomerular Filt Rate > 60 mL/min (>60); Globulin 3.4 g/dL (1.7-4.1); Glucose 93 mg/dL (70-99); HDL Cholesterol 90 mg/dL (40-60); HEMOLYSIS < 15 (0-50); Potassium 4.4 mmol/L (3.4-5.1); Sodium 138 mmol/L (137-145); Total Protein 7.8 g/dL (6.3-8.2); Triglycerides 101 mg/dL (35-150)
[2025-05-20 13:13] LABS: Percent Iron Saturation 33 % (15-50); Total Iron Binding Capacity 284 ug/dL (265-497); Transferrin 245 mg/dL (206-381)
[2025-05-20 13:36] LABS: TSH w/ Reflex to FT4 2.61 uIU/mL (0.47-4.68)
[2025-05-20 13:40] LABS: Ferritin 56 ng/mL (11-264)
[2025-05-20 13:55] LABS: Vitamin B12 Reflex MMA if <400 383 pg/mL (239-931)
== END ==
PROVIDERS: PCP Internal Medicine; Referring Provider Internal Medicine; Visit Provider Internal Medicine
DX: E03.9 Hypothyroidism, unspecified (principal); E61.1 Iron deficiency; E78.2 Mixed hyperlipidemia; E53.8 Deficiency of other specified B group vitamins; I47.10 Supraventricular tachycardia, unspecified
CPT/HCPCS: 36415; 80053; 80061; 82607; 82728; 83540; 83550; 83921; 84443; 85027

== ENCOUNTER 2025-08-24 18:49 | Emergency (ER) | payer MEDICARE, SELFPAY ==
[2025-05-20 11:38] VITALS: BMI 16.1
[2025-08-24 18:58] VITALS: BP 159/71; PULSE 68; RESP 18; TEMP 36.3; O2SAT 99; BMI 19.0
--- NOTE | 2025-08-24 19:00 | DI.RAD.S_ITS ---
PROCEDURE: XR SHOULDER RT MIN 2V INDICATIONS: shoulder pain TECHNIQUE: 3 views of the shoulder were acquired. COMPARISON: [facility], CR, XR SHOULDER LT MIN 2V, 07/18/2023, 15:05. FINDINGS: Bones: No fractures or dislocations. Mild superior subluxation of the hemorrhoidal head relative to the glenoid. No suspicious bony lesions. Visualized ribs appear intact. Mild acromioclavicular and glenohumeral joint osteoarthrosis. Soft tissues: No suspicious soft tissue calcifications. IMPRESSION: No acute bony abnormality. Superior subluxation of the glenohumeral head, similar to prior. Finding may represent chronic rotator cuff injury which can be evaluated further by MRI. Approved by: Sudha Morales M.D.,Ph.D. on 08/24/2025 at 19:49
[2025-08-24 20:59] VITALS: PULSE 64; O2SAT 99
[2025-08-24 21:00] VITALS: PULSE 64; O2SAT 100
--- NOTE | 2025-08-24 21:06 | ED.UPPEXIN ---
HPI - Extremity Injury (Upper) General Chief Complaint: Extremity Injury, Upper Stated Complaint: Pain in right shoulder Time Seen by Provider: 08/24/25 18:59 Mode of arrival: Ambulatory History of Present Illness HPI narrative: 84-year-old female with mild cognitive impairment ,dementia, hypothyroidism, SVT, dyslipidemia, osteoarthritis, heard a pop today while moving her right shoulder having significant pain at this time unable to move it past 90 degrees. Patient seen at walk-in clinic referred over here for further evaluation with concerns for potential biceps tendon rupture. Other than what is stated 14 point review of system is negative. Related Data Home Medications ?Medication ?Instructions ?Recorded ?Confirmed acetaminophen 325 mg tablet mg PO 03/19/25 08/24/25 amiodarone 200 mg tablet 200 mg PO DAILY 03/19/25 08/24/25 apixaban 2.5 mg tablet (Eliquis) mg PO 03/19/25 08/24/25 melatonin 3 mg tablet 3 mg PO ONCE PM 03/19/25 08/24/25 metoprolol succinate 50 mg mg PO 03/19/25 08/24/25 tablet,extended release 24 hr trazodone 50 mg tablet 25 mg PO ONCE PM PRN 03/19/25 08/24/25 Bifidobacterium combo no.9 1 cell PO BID 08/12/25 08/24/25 billion cell capsule,delayed release (Adult 50 Plus Probiotic Avril) guar gum 1 tbsp PO DAILY 08/12/25 08/24/25 Previous Rx's ?Medication ?Instructions ?Recorded levothyroxine 88 mcg tablet 88 mcg PO DAILY #90 tabs 11/21/24 Disabled Parking #1 ea 05/20/25 quetiapine 25 mg tablet 25 mg PO BID #60 tabs 08/12/25 hydrocodone 5 mg-acetaminophen 325 1 tab PO Q4-6H PRN pain #20 tabs 08/24/25 mg tablet Allergies Allergy/AdvReac Type Severity Reaction Status Date / Time codeine AdvReac Severe Vomiting Verified 08/24/25 18:58 Opioids - Morphine Analogues AdvReac Vomiting Verified 08/24/25 18:58 Review of Systems Review of Systems ROS Unobtainable: All systems reviewed & are unremarkable except as noted in HPI and below Patient History Medical History Acquired hypothyroidism Adhesive capsulitis of left shoulder Alzheimer dementia without behavioral disturbance, psychotic disturbance, mood disturbance, or anxiety Do not resuscitate Menopausal syndrome Mixed hyperlipidemia Primary osteoarthritis involving multiple joints Protein calorie malnutrition SVT (supraventricular tachycardia) Tendonitis of left rotator cuff Social History details: (Gerard) 2020, son age 51 prostate cancer household members: none alcohol intake: never Alcohol type: beer Exam Narrative Exam Narrative: GENERAL: [84] year old patient appears stated age. Well-developed patient, in mild distress. HEAD: Atraumatic. Normocephalic. EYES: Pupils equal round and reactive. Extraocular motions intact. No scleral icterus. No injection or drainage. NECK: Trachea midline. Non tender Chest: Right sided anterior lateral chest swelling soft tissue chest wall. No crepitus on exam EXTREMITIES: No edema or joint tenderness. BACK: Nontender without deformity or crepitance. No flank tenderness. NEURO: AOx3. SKIN: No rash or erythema of visible areas Initial Vital Signs Initial Vital Signs: Vital Signs Temperature 97.4 F L 08/24/25 18:58 Pulse Rate 68 08/24/25 18:58 Respiratory Rate 18 08/24/25 18:58 Blood Pressure 159/71 H 08/24/25 18:58 Pulse Oximetry 99 08/24/25 18:58 Oxygen Delivery Method Room Air 08/24/25 18:58 Procedures [facility] Procedure Name of Procedure: Right-sided glenohumeral joint injection using posterior approach Side (if applicable): right Time out performed: Yes Technique/Description of procedure performed: Right-sided glenohumeral joint injection using posterior approach. Using 1% lidocaine without epi 5 mL patient draped and prepped in a sterile fashion using 22-1-1/2 gauge needle injected using posterior approach. Patient tolerated procedure with no complications. Patient tolerated procedure: Well and No complications Complications: none Course Orders Ordered: ED Orders 08/24/25 19:00 XR shoulder RT 2+ views Stat Vital Signs Vital signs: Vital Signs - 8 hr 08/24/25 18:58 Temperature 97.4 F L Pulse Rate 68 Respiratory Rate 18 Blood Pressure 159/71 H Pulse Oximetry 99 Oxygen Delivery Method Room Air MDM - Extremity Injury (Upper) Imaging Data Extremity x-ray #1: Radiologist's Impression: [address] [address] XRay Report Signed Patient: Michelle Christian MR#: [id number] : 1940 Acct:[id number] Age/Sex: 84 / F Date of Service: 08/24/25 Loc: ED Accession Number: [id number] Procedure: XR shoulder RT 2+ views Ordering Provider: Guido Suero D.O. PROCEDURE: XR SHOULDER RT MIN 2V INDICATIONS: shoulder pain TECHNIQUE: 3 views of the shoulder were acquired. COMPARISON: [facility], , XR SHOULDER LT MIN 2V, 07/18/2023, 15:05. FINDINGS: Bones: No fractures or dislocations. Mild superior subluxation of the hemorrhoidal head relative to the glenoid. No suspicious bony lesions. Visualized ribs appear intact. Mild acromioclavicular and glenohumeral joint osteoarthrosis. Soft tissues: No suspicious soft tissue calcifications. IMPRESSION: No acute bony abnormality. Superior subluxation of the glenohumeral head, similar to prior. Finding may represent chronic rotator cuff injury which can be evaluated further by MRI. Extremity x-ray #2: Radiologist's Impression: [address] [address] [address] Scan Report Signed Patient: Michelle Christian MR#: [id number] : 1940 Acct:[id number] Age/Sex: 84 / F Date of Service: 08/24/25 Loc: ED Accession Number: [id number] Procedure: CT UE RT wo con Ordering Provider: Guido Suero D.O. PROCEDURE: CT UE RT WO CON INDICATIONS: R shoulder /bicep. Right shoulder pain. TECHNIQUE: Noncontrast 0.75 mm thick sections acquired from the acromioclavicular joint to the inferior scapula, with coronal and sagittal reformatting. COMPARISON: [facility], , XR SHOULDER RT 2+ VIEWS, 08/24/2025, 19:02. FINDINGS: Image quality: Excellent. Bones: No fracture. High-riding humeral head with enthesopathic change about the greater tuberosity and lesser tuberosity. No rib fracture. Chronic and well corticated, posterior superior humeral Hill-Sachs defect. Soft tissues: Small gas foci within the subcoracoid recess with a small glenohumeral joint effusion. Likely full-thickness superior rotator cuff tear with pseudo articulation of the humeral head with the acromial undersurface. Soft tissue edema within the lateral pectoralis major, anterior upper arm compartment, and deltoid. Fatty infiltration and atrophy of the superior rotator cuff. IMPRESSION: 1. No acute fracture. 2. Right glenohumeral intra-articular gas foci with a small glenohumeral joint effusion is likely sequela of recent injection. 3. Anterior upper arm, deltoid, and pectoralis soft tissue muscular edema. This may represent reactive edema due to an acute muscular tear or strain. This could be further evaluated outpatient MRI of the chest, pectoralis protocol. 4. Findings of high grade chronic rotator cuff tear with high-riding humeral head. Communication: The above findings were discussed with the ordering clinician, Dr. Suero, by Dr. Delgado via telephone on 08/24/2025 at 10:44 pm PST. The doctor reported recent intra-articular injection prior to CT. Dictated by: Bismark Delgado M.D. on 08/24/2025 at 22:37 Approved by: Bismark Delgado M.D. on 08/24/2025 at 22:49 MDM Narrative Medical decision making narrative: All lab work, vital signs, nurse triage note, medication list, previous ER visits, and all imaging studies reviewed. CT scan of right upper extremity showed no acute fracture. Right glenohumeral intra-articular gas foci with a small glenohumeral joint effusion likely sequela of recent injection. Anterior upper arm deltoid and pectoralis soft tissue muscular edema. This may represent reactive edema due to an acute muscular tear or strain. This could be further evaluated outpatient MRI of the chest. Pectoralis protocol findings of high-grade chronic rotator cuff tear with high riding humeral head. Patient did receive [place] here and also lidocaine 1%injection for pain relief. C case discussed with Dr. Zarate recommended the patient be referred to [facility] Dr. Chuy Mckeon. Differential diagnosis fracture, dislocation, ligament tear, muscular injury. Discharge Plan Departure Patient Disposition: Home Clinical Impression: Rotator cuff tear Qualifiers: Rotator cuff tear extent: unspecified tear extent Rotator cuff tear trauma status: traumatic Encounter type: initial encounter Laterality: right Qualified Code(s): S46.011A - Strain of muscle(s) and tendon(s) of the rotator cuff of right shoulder, initial encounter Instructions: DI for Rotator Cuff Injury Activity Restrictions/Additional Instructions: Return with new or worsening symptoms. Follow up with [facility] Dr.Christoper Mckeon. [phone] Prescriptions: New hydrocodone-acetaminophen 5-325 mg tablet 1 tab PO Q4-6H PRN (Reason: pain) Qty: 20 0RF No Action levothyroxine 88 mcg tablet 88 mcg PO DAILY Qty: 90 3RF Eliquis 2.5 mg tablet PO amiodarone 200 mg tablet 200 mg PO DAILY metoprolol succinate 50 mg tablet extended release 24 hr PO melatonin 3 mg tablet 3 mg PO ONCE PM trazodone 50 mg tablet 25 mg PO ONCE PM PRN acetaminophen 325 mg tablet PO guar gum Powder 1 tbsp PO DAILY Rx Instructions: mix into at least 8 oz of water or juice before administering Adult 50 Plus Probiotic Avril 1 billion cell capsule,delayed release(DR/EC) PO BID quetiapine 25 mg tablet 25 mg PO BID Qty: 60 11RF (DME) Disabled Parking See Rx Instructions .ROUTE .MEDSUPPLY Qty: 1 0RF Rx Instructions: I find this patient to be medically disabled and qualified for disabled parking as indicated, and signed, on the accompanying disabled parking application for individuals. Referrals: Lex Major MD [Primary Care Provider, Internal Medicine] Stand Alone Forms: Patient Portal/API
--- NOTE | 2025-08-24 21:12 | DI.CT.S_ITS ---
PROCEDURE: CT UE RT WO CON INDICATIONS: R shoulder /bicep. Right shoulder pain. TECHNIQUE: Noncontrast 0.75 mm thick sections acquired from the acromioclavicular joint to the inferior scapula, with coronal and sagittal reformatting. COMPARISON: [facility], CR, XR SHOULDER RT 2+ VIEWS, 08/24/2025, 19:02. FINDINGS: Image quality: Excellent. Bones: No fracture. High-riding humeral head with enthesopathic change about the greater tuberosity and lesser tuberosity. No rib fracture. Chronic and well corticated, posterior superior humeral Hill-Sachs defect. Soft tissues: Small gas foci within the subcoracoid recess with a small glenohumeral joint effusion. Likely full-thickness superior rotator cuff tear with pseudo articulation of the humeral head with the acromial undersurface. Soft tissue edema within the lateral pectoralis major, anterior upper arm compartment, and deltoid. Fatty infiltration and atrophy of the superior rotator cuff. IMPRESSION: 1. No acute fracture. 2. Right glenohumeral intra-articular gas foci with a small glenohumeral joint effusion is likely sequela of recent injection. 3. Anterior upper arm, deltoid, and pectoralis soft tissue muscular edema. This may represent reactive edema due to an acute muscular tear or strain. This could be further evaluated outpatient MRI of the chest, pectoralis protocol. 4. Findings of high grade chronic rotator cuff tear with high-riding humeral head. Communication: The above findings were discussed with the ordering clinician, Dr. Suero, by Dr. Delgado via telephone on 08/24/2025 at 10:44 pm PST. The doctor reported recent intra-articular injection prior to CT. Dictated by: Bismark Delgado M.D. on 08/24/2025 at 22:37 Approved by: Bismark Delgado M.D. on 08/24/2025 at 22:49
[2025-08-24] MEDS: ONDANSETRON 4 MG ODT SL (21:20)
[2025-08-24] MEDS: LIDOCAINE 2% INJ MDV 20ML 10 ML INJ (21:21)
[2025-08-25 00:10] VITALS: BP 162/68; PULSE 61; RESP 15; O2SAT 95
== END 2025-08-24 23:48 | disposition home or self-care (01) ==
PROVIDERS: Emergency Provider Family Medicine; PCP Internal Medicine
DX: S46.011A Strain of muscle(s) and tendon(s) of the rotator cuff of right shoulder, initial encounter (principal)
CPT/HCPCS: 20610; 73030; 73200; 99283; 99284

== ENCOUNTER → 2025-09-02 15:08 | Outpatient (CLI) | payer MEDICARE, SELFPAY ==
[2025-05-20 11:38] VITALS: BMI 16.1
--- NOTE | 2025-09-02 15:11 | DI.ECHO.S_ITS ---
[facility] : : [address] : : [place] : : [id number] : : Phone: [phone] Echocardiogram Report + + :Name: HENRIK WYATT Study Date: 09/02/2025 Height: 66 in : :[facility] ReadingLocation: Weight: 118 lb : : Gender: Female BSA: 1.6 m2 : :: 1940 Age: 85 yrs BP: 140/72 mmHg: :Reason For Study: Chronic Systolic CHF : :Ordering Physician: LENNIE, : :[place] Performed By: Umair Mcdonough : :Referring: [place] HOGUE : + + Interpretation Summary The left ventricle is normal in size and wall thickness. Left ventricular ejection fraction is estimated to be 40 +/- 5%. Left ventricular systolic function has mildly improved compared to the previous exam. The right ventricle is normal in size and function. Pulmonary artery pressures cannot be estimated because of the lack of a measurable TR jet velocity but the IVC suggests a CVP of around 3 mmHg. The left atrium is severely dilated. The interatrial septum bows toward right atrium consistent with elevated left atrial pressure. There is mild to moderate mitral regurgitation. MR has decreased. There is moderate aortic regurgitation. Compared to the prior echo study, there has been an increase in the severity of aortic regurgitation. The aortic root is normal size. Procedure: A two-dimensional transthoracic echocardiogram with color flow and Doppler was performed. The study quality was technically adequate. Comparison is made with the echocardiogram of 12/22/2024. The heart rate ranged between 60-71 bpm during the study. Left Ventricle: The left ventricle is normal in size and wall thickness. Left ventricular ejection fraction is estimated to be 40 +/- 5%. Left ventricular systolic function has mildly improved compared to the previous exam. There is mild global hypokinesis of the left ventricle. Diastolic function is indeterminate. Right Ventricle: The right ventricle is normal in size and function. Atria: The left atrium is severely dilated. The right atrium is normal in size. There is no Doppler evidence for an interatrial shunt. The interatrial septum bows toward right atrium consistent with elevated left atrial pressure. Mitral Valve: There is mild mitral annular calcification. The mitral valve leaflets appear to open well. There is no mitral valve stenosis. There is mild to moderate mitral regurgitation. Aortic Valve: The aortic valve is trileaflet. There is mild aortic valve sclerosis. There is no hemodynamically significant valvular aortic stenosis. There is moderate aortic regurgitation. Compared to the prior echo study, there has been an increase in the severity of aortic regurgitation. Tricuspid Valve: The tricuspid valve is not well visualized, but is grossly normal. There is trace tricuspid regurgitation. Pulmonary artery pressures cannot be estimated because of the lack of a measurable TR jet velocity but the IVC suggests a CVP of around 3 mmHg. Pulmonic Valve: The pulmonic valve is not well seen, but is grossly normal. There is trace pulmonic regurgitation. Great Vessels: The aortic root is normal size. The ascending aorta is normal in size. The aortic arch could not be visualized. The IVC is of normal diameter and collapses greater than 50% with a sniff. This suggests a low right atrial pressure of 3 mm Hg. Pericardium/ Pleura There is a small pericardial effusion noted. There are no echocardiographic indications of cardiac tamponade. MMode/2D Measurements & Calculations LVIDd: 5.4 cm LVOT diam: 2.0 cm LVIDs: 4.2 cm Ao root diam: 2.7 cm FS: 22.5 % asc Aorta Diam: 2.6 cm EPSS: 0.98 cm IVSd: 0.86 cm LVPWd: 0.92 cm LV pulliam. diameter/BSA (cm/m^2): 3.4 LV sys. diameter/BSA (cm/m^2): 2.6 LA A2 area: 25.6 cm2 RA long axis: 6.5 cm LA A4 area: 29.3 cm2 RA area: 12.9 cm2 LA length (vol): 7.3 cm RA vol: 21.8 ml LA vol: 87.0 ml RA : 13.7 ml/m2 LA vol index: 54.5 ml/m2 IVC diam: 1.9 cm RVD1 (basal): 2.0 cm RVD2 (mid): 2.1 cm TAPSE: 2.1 cm Doppler Measurements & Calculations Ao V2 max: 143.1 cm/sec LVOT Max Som: 80.8 cm/sec Ao V2 mean: 101.5 cm/sec LV V1 max P.6 mmHg Ao max P.2 mmHg LV V1 VTI: 18.3 cm Ao mean P.5 mmHg CHRIS(I,D): 1.8 cm2 Ao V2 VTI: 30.7 cm CHRIS(V,D): 1.7 cm2 sev ratio: 0.60 CHRIS indexed to BSA (cm^2/m^2): 1.2 AI P1/2t: 483.4 msec AI dec slope: 315.4 cm/sec2 MV E max som: 67.2 cm/sec PA V2 max: 64.4 cm/sec MV A max som: 55.1 cm/sec PA V2 mean: 42.7 cm/sec MV E/A: 1.2 PA mean P.83 mmHg MV dec time: 0.15 sec PA pr(Accel): 31.5 mmHg SV(LVOT): 56.5 ml Reading Physician:12:37 PM
== END ==
PROVIDERS: PCP Internal Medicine; Referring Provider Internal Medicine; Visit Provider Internal Medicine
DX: I50.22 Chronic systolic (congestive) heart failure (principal); I51.7 Cardiomegaly; I34.0 Nonrheumatic mitral (valve) insufficiency; I35.1 Nonrheumatic aortic (valve) insufficiency
CPT/HCPCS: 93306